=== PATIENT | male | born 1945 | race Caucasian/White ===

== ENCOUNTER → 2016-05-11 09:12 | Outpatient (CLI) | payer MEDICARE, OTHER ==
[2014-11-24 13:15] VITALS: BMI 31.9
[~2016-05-11 09:12] MED LIST: BRILINTA90 MG PO; BYSTOLIC10 MG PO; FLAGYL500 MG PO; FORTAMET500 MG/BOT PO; GEMFIBROZIL600 MG PO; GLIPIZIDE10 MG PO; GLUCOPHAGE500 MG PO; LACTINEX C1 TAB.CHEW PO; LEVAQUIN750 MG PO; LISINOPRIL-HCTZ1 T11 PO; MOBIC7.5 MG PO; MUCINEX600 MG PO; NORVASC10 MG PO; NORVASC2.5 MG PO; PRAVACHOL40 MG PO; PRINIVIL20 MG PO; PROVENTIL HFA6.7 GM INH; QUESTRAN LIGH4 G/PKT PO; SYNTHROID50 MCG PO; ULTRAM50 MG PO; VITAMIN D2000 UNIT PO
== END | disposition home or self-care (01) ==
LOC: D.US 09:12
DX: N08 Glomerular disorders in diseases classified elsewhere (principal)

== ENCOUNTER → 2016-09-17 10:14 | Outpatient (CLI) | payer MEDICARE, OTHER ==
[2014-11-24 13:15] VITALS: BMI 31.9
[2016-09-17 10:59] LABS: CREATININE - SERUM 2.9 mg/dL (0.6-1.3)
== END | disposition home or self-care (01) ==
LOC: D.LAB 10:14 → D.MRI 11:30
PROVIDERS: Family Medicine
DX: R51 Headache (principal)

== ENCOUNTER → 2016-11-13 10:10 | Outpatient (CLI) | payer MEDICARE, OTHER ==
[2014-11-24 13:15] VITALS: BMI 31.9
== END | disposition home or self-care (01) ==
LOC: D.US 11-12 14:30
DX: I65.23 Occlusion and stenosis of bilateral carotid arteries (principal)

== ENCOUNTER 2016-12-12 17:51 | Inpatient (IN) | payer MEDICARE, OTHER ==
[2016-12-12 19:06] LABS: BASOPHILS 0.2 % (0-2); EOSINOPHILS 0.5 % (0-7); HEMATOCRIT 30.5 % (42.0-54.0); HEMOGLOBIN 10.2 g/dL (13.5-17.5); IMMATURE GRANULOCYTES 0.9 % (0-5); LYMPHOCYTES 7.6 % (15-50); MCH 28.8 pg (26.0-34.0); MCHC 33.4 g/dL (31.0-37.0); MCV 86.2 fL (80.0-100.0); MEAN PLATELET VOLUME 10.7 fL (7.4-10.4); MONOCYTES 6.3 % (2-11); NEUTROPHILS 84.5 % (40-80); RBC 3.54 10x6/uL (4.20-6.10); RDW 13.3 % (11.5-14.5); WBC 6.3 10x3/uL (4.8-10.8)
[2016-12-12 19:07] LABS: PLATELET COUNT 266 10x3/uL (130-400)
[2016-12-12 19:18] LABS: APTT 28.7 SECONDS (22.8-39.4); INR 1.05 (0.85-1.17); PROTIME 13.6 SECONDS (11.6-15.0)
[2016-12-12 19:28] LABS: ALBUMIN 3.2 g/dL (3.4-5.0); ANION GAP 20.8 mmol/L (8-16); BILIRUBIN - TOTAL 0.23 mg/dL (0.2-1.3); CALCIUM 8.6 mg/dL (8.5-10.1); CREATININE - SERUM 3.2 mg/dL (0.6-1.3); POTASSIUM - SERUM 4.8 mmol/L (3.5-5.1); PROTEIN - SERUM 6.8 g/dL (6.4-8.2)
[2016-12-12 19:37] LABS: TROPONIN-I 0.03 ng/mL (0.000-0.060)
[2016-12-13] MEDS ORDERED: COREG12.5 MG PO (00:05)
[2016-12-13] MEDS ORDERED: FUROSEMIDE20 MG PO (00:05)
[2016-12-13] MEDS ORDERED: NEURONTIN 300300 MG PO (00:06)
[2016-12-13] MEDS ORDERED: SYNTHROID50 MCG PO (00:09)
[2016-12-13] MEDS ORDERED: LANTUS INSULIN10 ML SQ (00:10)
[2016-12-13 00:27] VITALS: BP 184/86; BMI 31.3
--- NOTE | 2016-12-13 01:00 | NUR ---
RECEIVED PATIENT ADMITTED FROM THE ER AT 0015 W/ DX OF NEW ONSET RENAL FAILURE & HYPERTENSION. PT IS ALERT, AWAKE, AND ORIENTED X3. HE HAS 20G IV LEFT FOREARM SALINE LOC. PER ER NURSE, BP HAS BEEN LABILE. HERE PT'S BP IS 184/86, WILL MEDICATE W/ PRN CLONIDINE PER ADMISSION ORDERS. ADMISSION HISTORY, ASSESSMENT, AND MEDICATION RECONCILIATION COMPLETED. PT'S IS AT THE BEDSIDE. WILL START IVF PER ADMIT ORDERS. PT DENIES ANY OTHER NEEDS AT THIS TIME. WILL CONT TO MONITOR.
[2016-12-13 04:27] LABS: BASOPHILS 0.2 % (0-2); EOSINOPHILS 1.4 % (0-7); HEMATOCRIT 27.9 % (42.0-54.0); HEMOGLOBIN 9.5 g/dL (13.5-17.5); IMMATURE GRANULOCYTES 0.5 % (0-5); LYMPHOCYTES 19.3 % (15-50); MCH 29.4 pg (26.0-34.0); MCHC 34.1 g/dL (31.0-37.0); MCV 86.4 fL (80.0-100.0); MEAN PLATELET VOLUME 10.3 fL (7.4-10.4); MONOCYTES 10.8 % (2-11); NEUTROPHILS 67.8 % (40-80); PLATELET COUNT 214 10x3/uL (130-400); RBC 3.23 10x6/uL (4.20-6.10); RDW 13.6 % (11.5-14.5); WBC 5.5 10x3/uL (4.8-10.8)
[2016-12-13 04:38] LABS: ANION GAP 15.8 mmol/L (8-16); CALCIUM 8.3 mg/dL (8.5-10.1); CARBON DIOXIDE 21.4 mmol/L (21.0-32.0); CREATININE - SERUM 3.2 mg/dL (0.6-1.3); POTASSIUM - SERUM 4.2 mmol/L (3.5-5.1)
[2016-12-13 05:33] VITALS: BP 114/69
[2016-12-13 07:37] LABS: T4 THYROXINE 1.9 ug/dL (4.7-13.3); THYROID STIMULATING HORMONE 2.59 uIU/mL (0.36-3.74)
[2016-12-13 08:00] VITALS: BP 155/69
--- NOTE | 2016-12-13 09:47 | NUR ---
TELEMETRY SR. IV PATENT. AT BS. CALL LIGHT IN REACH. WILL MONITO NEEDS.
--- NOTE | 2016-12-13 09:49 | NUR ---
RESTS IN BED WITH EYES CLOSED. IV PATENT. AT BS. CALL LIGHT IN REACH. WILL MONITOR NEEDS.
[2016-12-13 12:00] VITALS: BP 124/47
[2016-12-13 16:00] VITALS: BP 140/55
[2016-12-13 21:38] VITALS: BP 180/86
[2016-12-14 01:53] VITALS: BP 157/73
--- NOTE | 2016-12-14 02:26 | NUR ---
LYING IN BED, CALL LIGHT IN REACH. WILL CONTINUE WITH PLAN OF CARE.
[2016-12-14 04:16] VITALS: BP 159/78
[2016-12-14 05:36] LABS: BASOPHILS 0.4 % (0-2); EOSINOPHILS 3.2 % (0-7); HEMATOCRIT 28.4 % (42.0-54.0); HEMOGLOBIN 9.5 g/dL (13.5-17.5); IMMATURE GRANULOCYTES 0.6 % (0-5); LYMPHOCYTES 23.2 % (15-50); MCHC 33.5 g/dL (31.0-37.0); MCV 86.6 fL (80.0-100.0); MEAN PLATELET VOLUME 10.4 fL (7.4-10.4); MONOCYTES 10.3 % (2-11); NEUTROPHILS 62.3 % (40-80); PLATELET COUNT 209 10x3/uL (130-400); RBC 3.28 10x6/uL (4.20-6.10); RDW 13.4 % (11.5-14.5); WBC 4.7 10x3/uL (4.8-10.8)
[2016-12-14 05:43] LABS: ANION GAP 13.6 mmol/L (8-16); CALCIUM 8.3 mg/dL (8.5-10.1); CARBON DIOXIDE 22.3 mmol/L (21.0-32.0); CREATININE - SERUM 3.2 mg/dL (0.6-1.3); POTASSIUM - SERUM 3.9 mmol/L (3.5-5.1)
[2016-12-14] MEDS ORDERED: CATAPRES0.2 MG PO (07:36)
[2016-12-14 08:03] VITALS: BP 162/65
--- NOTE | 2016-12-14 11:02 | NUR ---
IV AND TELEMETRY DCD. DC PLANS GIVEN. UNDERSTANDING VOICED. ESCORTED TO CAR BY W/C.
--- NOTE | 2016-12-14 14:57 | NUR ---
LATE ENTRY: 12/14/16 @ 1000 Patient Name: OSMAN RIBEIRO Admission Status: ER Accout number: [id number] Admission Date: 12-12-2016 : 1945 Admission Diagnosis: Attending: URIEL DE Current LOS: 2 Anticipated DC Date: 12-14-2016 Planned Disposition: Home Primary Insurance: MEDICARE A & B Discharge Planning Comments: CM MET WITH PATIENT TO DISCUSS DISCHARGE. PATIENT WAS WITH AT BEDSIDE. THEY INITIALLY ASKED IF WE COULD GET THE PAPERWORK STARTED FOR THE PATIENTS DISABILITY. EXPLAINED THAT WE WERE NOT ABLE TO DO THIS. ENCOURAGED THEM TO GO TO THE SOCIAL SECURITY OFFICE AND 3D MODELER THE PAPERWORK AND TAKE IT TO THEIR PCP'S OFFICE. THAT HE WOULD HAVE TO BE THE ONE TO FILL OUT THE PAPERWORK. THEY WERE THANKFUL FOR THIS INFORMATION. THE PATIENT LIVES AT HOME WITH HIS . HE HAS A CPAP, GLUCOMETER (SUPPLIES MAILED TO HIS HOME THROUGH [facility]) AND A B/P MONITOR. HE DENIES THE NEED FOR HOME HEALTH OR ANY OTHER COMMUNITY RESOURCES. I HAVE MADE MYSELF AVAILABLE IN CASE HE WERE TO THINK OF ANY NEEDS PRIOR TO LEAVING TODAY. Sash Maker: Samina Comer Is the patient Alert and Oriented? Yes * How many steps to enter\exit or inside your home? 3, RAIL * PCP DR JENNY MANDEL * Pharmacy [address] ON [place] * Preadmission Environment Home with Family * ADLs Independent * Equipment CPAP Glucometer * Other Equipment B/P MONITOR * List name and contact numbers for known caregivers / representatives who currently or will assist patient after discharge: INDER RIBEIRO, , * Community resources currently utilized None * Please name any agencies selected above. [facility] SUPPLIES ALL DIABETIC SUPPLIES THROUGHT THE MAIL. * Additional services required to return to the preadmission environment? No * Can the patient safely return to the preadmission environment? Yes * Has this patient been hospitalized within the prior 30 days at any hospital? No
--- NOTE | 2016-12-17 07:30 | HP ---
PATIENT: OSMAN RIBEIRO MEDICAL RECORD: [id number] ACCOUNT: [id number] LOCATION:[address] : [birth year] ADMISSION DATE: 12/12/16 HISTORY AND PHYSICAL EXAMINATION DATE OF ADMISSION: 12/12/2016 CHIEF COMPLAINT: Elevated blood pressure. HISTORY OF PRESENT ILLNESS: The patient is a 71-year-old gentleman with longstanding history of having hypertension and diabetes. He has also had arteriosclerotic heart disease. The patient states over the past couple of weeks, he has had elevated blood pressures. He has also had a history of kidney disease with recent worsening. He is followed by Dr. Dickerson. Patient presented to the Emergency Room where he was found to have malignant hypertension as well as worsening of the BUN and creatinine. It was felt the patient warranted admission. PAST MEDICAL HISTORY: Significant that he has had diabetes mellitus. He has had idiopathic peripheral autonomic neuropathy, hypertension, appendectomy, left carotid endarterectomy, and cardiac stents placed. He has had cardiac catheterization in 2009, 2013, and 2014. FAMILY HISTORY: Mother had cerebrovascular accident. Father had neoplasm, at age 63. ALLERGIES: None. MEDICATIONS: Include amlodipine 10 mg 1 p.o. every day, aspirin 81 mg once a day, Carvedilol 12.5 once a day, furosemide 20 mg once a day, gabapentin 300 mg p.o. at bedtime, gemfibrozil 600 mg b.i.d., Lantus 80 units once daily, lisinopril 20 b.i.d., tramadol on a p.r.n. basis, and vitamin D3 2000 international units once a day. SOCIAL HISTORY: The patient has 2 years college education. He is . He denies any ethanol, tobacco use, or abuse. He stopped chewing tobacco in December 2015. REVIEW OF SYSTEMS: CONSTITUTIONAL: He denies any headaches, seizure, or syncope. He denies any visual or auditory acuity. PULMONARY: He denies any shortness of breath, cough, congestion. CARDIOVASCULAR: He did report having some pressure in the chest. GASTROINTESTINAL: No chronic nausea, vomiting, melena, or hematochezia. GENITOURINARY: No urgency, frequency, or dysuria. PHYSICAL EXAMINATION: VITAL SIGNS: The patient's blood pressure was elevated with a blood pressure of 220/110, his pulse was 90. He was afebrile. GENERAL: He is alert. He is oriented times 3. HEENT: Unremarkable. NECK: Supple. There is no adenopathy. HEART: Has regular rate and rhythm. No murmurs, gallops, or rubs. LUNGS: Clear. ABDOMEN: Soft, bowel sounds positive. No organomegaly. HISTORY AND PHYSICAL [id number] OSMAN RIBEIRO GENITAL AND RECTAL: Deferred. LABORATORY DATA: The patient had a BUN of 75, creatinine elevated at 3.5. Chest x-ray showed borderline cardiomegaly. It is of note that the patient's last BUN in the office was 61, but his creatinine was 3.41. This was back in October of this year. The patient also as stated above has been followed by Dr. Dickerson. ASSESSMENT: 1. Accelerated hypertension. 2. Chronic kidney disease. 3. Diabetes mellitus. PLAN: The patient is admitted for further evaluation and blood pressure will be treated with Clonidine 0.2 mg p.o. q.8 hours p.r.n. systolic greater than 160. Continue to evaluate. TRANSINT:[id number] Voice Confirmation ID: [id number] DOCUMENT ID: [id number] JENNY MANDEL MD at 0730 CC: [id number] DICTATION DATE: 12/13/16808 SENIOR SUSTAINABILITY CONSULTANT: 12/13/16923 DIS IN 12/14/16 [facility] [address] [place] [address]
== END 2016-12-14 11:03 | disposition home or self-care (01) | DRG 304 ==
LOC: D.ER 17:51 → D.M2 22:35
PROVIDERS: Emergency Medicine Emergency Medical Services; Family Medicine; ADMIT Family Medicine
DX: I16.0 Hypertensive urgency (principal); I50.21 Acute systolic (congestive) heart failure; N17.9 Acute kidney failure, unspecified; E11.22 Type 2 diabetes mellitus with diabetic chronic kidney disease; I13.0 Hypertensive heart and chronic kidney disease with heart failure and stage 1 through stage 4 chronic kidney disease, or unspecified chronic kidney disease; N18.9 Chronic kidney disease, unspecified; E11.40 Type 2 diabetes mellitus with diabetic neuropathy, unspecified; I25.10 Atherosclerotic heart disease of native coronary artery without angina pectoris

== ENCOUNTER 2017-04-25 12:49 | Inpatient (IN) | payer MEDICARE, OTHER ==
[2017-04-25] VITALS (12 sets, daily range): BP systolic 127–169; BP diastolic 52–80; Ht 180.3 cm; Wt 107.2 kg
[~2017-04-25] VITALS: Ht 180.3 cm; Wt 107.2 kg
--- NOTE | ~2017-04-25 | OP ---
PATIENT NAME: OSMAN RIBEIRO MEDICAL RECORD: [id number] :43 LOCATION:D.M2 D.2121 ADMISSION DATE:04/25/17 SURGEON: HAL CARBALLO MD DATE OF OPERATION: 04/30/2017 PROCEDURE: Lead portion of permanent pacemaker placement. INDICATION: Atrial fibrillation with pauses and bradyarrhythmias. DESCRIPTION OF PROCEDURE: After left subclavian was cannulated via modified Seldinger technique via Dr. Carmichael, first the RV lead was placed in RV apex without difficulty. After adequate thresholds and R waves were obtained, the lead was attached to appropriate poles of the generator and the pocket was closed via Dr. Carmichael. IMPRESSION: Successful lead portion of permanent pacemaker placement on Osman Ribeiro. ESTIMATED BLOOD LOSS: Minimal. COMPLICATIONS: None. DISPOSITION: To the floor, stable. TRANSINT:[id number] Voice Confirmation ID: [id number] DOCUMENT ID: [id number] HAL CARBALLO MD at 0920 CC: [id number] DICTATION DATE: 04/30/17 1538 TATTOOER: 04/30/17 1604 DIS IN 05/01/17 [address] [place] [address]
--- NOTE | ~2017-04-25 | EC ---
PATIENT:OSMAN RIBEIRO DATE OF SERVICE: 04/25/17 SEX: M MEDICAL RECORD: [id number] DATE OF : [birth year] LOCATION:D. D.212 AGE OF PATIENT: 71 ADMISSION DATE: 04/25/17 REFERRING PHYSICIAN: INTERPRETING PHYSICIAN: HAL CARBALLO MD ECHOCARDIOGRAM REPORT ECHO CHARGES 4 ECHO COMPLETE CLINICAL DIAGNOSIS: ARRHYTHMIA ECHOCARDIOGRAPHIC MEASUREMENTS (adult normal given) AC root (d.<3.7cm) 4.5 cm LV Septum d (<1.2 cm> 1.7 cm Valve Excursion 1.9 cm LV Septum (systole) 2.5 cm Left Atria (s.<4.0cm> 5.0 cm LVPW d(<1.2cm) 1.8 cm RV (d.<2.3cm) 5.4 cm LVPW (sytole) 2.2 cm LV diastole(<5.6CM) 5.6 cm MV E-F(>70mm/sec) cm LV systole 3.4 cm LVOT Diameter 1.9 cm MV exc.(>10mm) 1.4 cm Est.ejection fraction (50-75%) % Pericardial Effusion N DOPPLER: LVIT cm/sec A 48.0 cm/sec E 119 cm/sec LA cm/sec RVSP 39 mmHg LVOT 82 cm/sec AOP1/2T m/s Asc. Ao 137 cm/sec RVOT 83 cm/sec RA cm/sec PA 112 cm/sec AV Gradient Peak 7.51 mmHg AV Mean 3.41 mmHg AV Area 1.8 cm MV Gradient Peak 5.69 mmHg MV Mean 1.60 mmHg MV Area cm COMMENTS: Doctor Of Veterinary Medicine: 2 GENOVEVA HOWARD Bar Porter: 3 Dr. Matias TAPE# PACS DATE OF SERVICE: 04/26/2017 Adequate 2D echo, color flow and spectral Doppler, and M-mode. LVH is present. LV internal dimensions are normal. LV function is probably lower limits of normal, estimated EF 50%. Aortic valve sclerosis without stenosis by Doppler interrogation. Left atrium is dilated at 5.0 cm. Mitral valve shows no prolapse. Mild MR. Right-sided chamber is grossly normal. Mild TR. ECHOCARDIOGRAM REPORT [id number] OSMAN RIBEIRO TRANSINT:[id number] Voice Confirmation ID: [id number] DOCUMENT ID: [id number] HAL CARBALLO MD at 0919 CC: [id number] DICTATION DATE: 04/26/17 172 BRIDGE ENGINEER: 04/27/17 0122 DIS IN 05/01/17 [place] [id number] [place] [id number]
--- NOTE | ~2017-04-25 | OP ---
PATIENT NAME: OSMAN RIBEIRO MEDICAL RECORD: [id number] :43 LOCATION:D.M2 D.2121 ADMISSION DATE:04/25/17 SURGEON: LUCINDA PATEL MD DATE OF OPERATION: 04/30/2017 This is a cosurgeon case. PREOPERATIVE DIAGNOSIS: Chronic AFib with pauses. POSTOPERATIVE DIAGNOSIS: Chronic AFib with pauses. PROCEDURE: Creation of pacemaker pocket. Vascular access into the central venous system with a lead. Closure of the pacemaker pocket. BOTTLE CASER: Raji Matias MD CO-SURGEON: Lucinda Patel MD, this was a cosurgeon case. ANESTHESIA: Local with IV sedation. COMPLICATIONS: None. BLOOD LOSS: Minimal. This procedure was performed in the cardiac catheterization laboratory. OPERATIVE COURSE: The patient was conveyed to the cardiac catheterization laboratory on 04/30/2017. IV sedation was induced by the nursing staff under my direction. The left chest was sterilely prepped and draped. A local anesthetic was used to infiltrate the skin and subcutaneous tissues inferior to the left clavicle. A transverse incision was accomplished inferior to the left clavicle. Dissection was carried down to the level of the pectoralis fascia. A subcutaneous pocket was created bluntly in a caudad direction. Under fluoroscopy, I accessed the left subclavian vein in an antegrade fashion. A guidewire passed easily. A 7-Sinhala dilator sheath was advanced over the wire. The dilator and wire were removed. Through the sheath, a pacemaker lead was inserted into the central venous system. The sheath was then removed. Dr. Raji Matias positioned the pacemaker lead to the ventricles. Appropriate thresholds were obtained. I then sutured the lead to the underlying pectoralis fascia with 2-0 TiCron times 2. another TiCron was placed medially around the lead to prevent backbleeding. I confirmed the lead number with the pacemaker disability representative. The pacemaker lead was placed in the pacemaker generator and tightened down with the wrench. I tried to dislodge the pacemaker lead and was unable to do so. I then placed a pacemaker in the pacemaker pocket with the leads posterior to the pacemaker. I irrigated with normal saline. I sutured the pacemaker to the underlying pectoralis fascia with a 2-0 TiCron. The deep adipose tissue was closed with interrupted 3-0 Vicryls. The subcutaneous adipose tissue was closed with interrupted 3-0 Vicryls. The skin was approximated with a running intracuticular 3-0 Vicryl. A sterile dressing was applied. The patient was then conveyed to the post-procedure area. TRANSINT:[id number] Voice Confirmation ID: [id number] DOCUMENT ID: [id number] OPERATIVE REPORT [id number] OSMAN RIBEIRO, LUCINDA RIOS at 1607 CC: JENNY MANDEL and RAJI CARBALLO MD [id number] DICTATION DATE: 04/30/17 1608 INSURANCE EXAMINER: 04/30/17 1635 DIS IN 05/01/17 [facility] [address] [place] [id number]
--- NOTE | ~2017-04-25 | CN ---
PATIENT NAME:OSMAN RIBEIRO MEDICAL RECORD: [id number] : 43 LOCATION:. D.2121 ADMIT DATE: 04/25/17 ACCOUNT: [id number] CONSULTING PHYSICIAN: HAL CARBALLO MD REFERRING PHYSICIAN: JENNY MANDEL MD DATE OF CONSULTATION: 04/26/2017 HISTORY OF PRESENT ILLNESS: A 71-year-old gentleman with a history of coronary artery disease, status post intervention has a history of hypertension, chronic renal insufficiency, a 2-3 week history of generalized malaise, fatigue, lightheadedness. No mónica syncope, little bit bradycardic when checking his blood pressure. Recently had his Coreg and clonidine both increased. PAST MEDICAL HISTORY: 1. Includes a history of coronary artery disease. 2. Dyslipidemia. 3. Diabetes mellitus. 4. Cerebrovascular disease. ALLERGIES: ASPIRIN, SHELLFISH. SOCIAL HISTORY: , nonsmoker. Does try to exercise. [place] at the mall. REVIEW OF SYSTEMS: The patient reports easy bruising but reports no swollen glands. The patient reports no fever, no night sweats, no significant weight gain, no significant weight loss. No significant exercise tolerance. The patient reports no dry eyes, no irritation, no vision change. Patient reports no difficulty hearing and no ear pain. Patient reports no frequent nose bleeds or nose and sinus problems. Patient reports on arm pain on exertion. No shortness of breath while lying down. No history of heart murmur. Patient reports no cough, no wheezing or coughing up blood. Patient reports no abdominal pain, no vomiting. Normal appetite. No diarrhea and not vomiting blood. No nausea and no constipation. Patient reports no incontinence. No difficulty urinating. No hematuria. No increased frequency. Patient reports no muscle aches. No weakness, no arthralgias, no back pain. No swelling of the extremities. Patient reports no abnormal mole, no jaundice, no rashes. Reports no loss of consciousness. No weakness and no numbness. No seizures, dizziness, or headaches. The patient reports no depression, no sleep disturbance, feeling safe in a relationship and no alcohol abuse. Patient reports on fatigue. Reports no runny nose or sinus pressure. No itching, no hives, and no frequent sneezing. MEDICATIONS: Include: 1. Gemfibrozil 600 b.i.d. 2. Lisinopril 40 every day. 3. Clonidine 0.2 t.i.d. 4. Tramadol 50 q.4 p.r.n. 5. Neurontin 300 q.h.s. 6. Aspirin 81 every day. 7. Lasix 20 every day. 8. Insulin per scale. PHYSICAL EXAMINATION: GENERAL: Pleasant gentleman in no acute distress, appears well compensated. CONSULT REPORT [id number] QUINTINOSMAN KAILYN VITAL SIGNS: Pulse rate 39, blood pressure 146/72. HEENT: Normocephalic, atraumatic. NECK: No JVD or bruit. HEART: Regular, bradycardic. II/ systolic ejection murmur. LUNGS: Good air excursion. ABDOMEN: Soft, nontender. EXTREMITIES: Pulses 2+. There is 1+ edema. NEUROLOGIC: Grossly intact. IMPRESSION: Bradycardia, suspect this is medicine related, normal QRS duration. Would hold beta blockade and clonidine. Check echocardiographic study. Further recommendations based on the above. TRANSINT:[id number] Voice Confirmation ID: [id number] DOCUMENT ID: [id number] HAL CARBALLO MD at 0919 CC: [id number] DICTATION DATE: 04/26/17 0834 SUPERVISOR MAIL CARRIERS: 04/26/17 1201 DIS IN 05/01/17 [facility] [address] [facility] [place] [address]
--- NOTE | ~2017-04-25 | HP ---
PATIENT: OSMAN RIBEIRO MEDICAL RECORD: [id number] ACCOUNT: [id number] LOCATION:[address] : 43 ADMISSION DATE: 04/25/17 HISTORY AND PHYSICAL EXAMINATION DATE OF ADMISSION: 04/25/2017 CHIEF COMPLAINT: Shortness of breath. HISTORY OF PRESENT ILLNESS: The patient is a 71-year-old gentleman with longstanding history of having chronic renal disease. He is followed by Dr. Dickerson, he also has a history of having congestive heart failure. He is followed by Dr. Suarez. The patient presents complaining of having increasing shortness of breath over the past month, he has had no energy. In the Emergency Room, the patient was found to be symptomatic from bradycardia. It was felt the patient should be admitted. PAST MEDICAL HISTORY: Significant that he has had diabetes mellitus. He has had cardiac stenting in the past. He has had hyperlipidemia, hypertension, chronic renal disease. PAST SURGICAL HISTORY: He has had cholecystectomy, left carotid endarterectomy, appendectomy. FAMILY HISTORY: Significant for heart disease in the mother as well as cerebrovascular accident. SOCIAL HISTORY: The patient is 2 years college educated. He is . Former smoker, stopped in 1972. ALLERGIES: He has known drug allergies. MEDICATIONS: Include amlodipine 2.5 mg 1 p.o. every day, carvedilol 25 mg p.o. b.i.d., clonidine 0.2 mg p.o. t.i.d., Lasix 20 mg 1 p.o. every day, Lopid 600 mg p.o. b.i.d., hydralazine was 25 mg 1 p.o. q.i.d., Lantus SoloSTAR 50 units every day, lisinopril 20 mg b.i.d., tramadol 50 mg 1 every 6 hours p.r.n. severe pain, vitamin D3 2000 international units once a day. REVIEW OF SYSTEMS: CONSTITUTIONAL: He denies any headaches, seizure, or syncope. Denies change in visual or auditory acuity. PULMONARY: He denies any sputum production, but has had a cough. He has had some shortness of breath with exertion. CARDIOVASCULAR: He has had pressure in the chest. GASTROINTESTINAL: He has had no chronic nausea, vomiting, diarrhea, melena, or hematochezia. GENITOURINARY: No urgency, frequency, or dysuria. PHYSICAL EXAMINATION: VITAL SIGNS: In the Emergency Room, his respirations 16, blood pressure is 157/64, pulse was 32. HEENT: Head is normocephalic. No lesions. Ears: TMs clear. Eyes: Pupils equal, round and reactive to light. Extraocular movements are intact. Nasal cavity, oral cavity, oropharynx clear. NECK: Supple. There is no adenopathy. HISTORY AND PHYSICAL [id number] OSMAN RIBEIRO HEART: He is bradycardic. LUNGS: Clear. ABDOMEN: Soft, bowel sounds are positive. No organomegaly. LABORATORY DATA: The patient had an EKG showing sinus bradycardia. Chest x-ray showed evidence of previous granulomatous disease, also cardiomegaly was present. He had a white count of 4.1, hemoglobin 9.6, hematocrit 30.5, platelets were 181. Sodium 138, potassium is 5, CO2 is 19.8, BUN is 55, creatinine is 3.5. Cardiac enzymes unremarkable. He had a proBNP of 12,335. ASSESSMENT: 1. Symptomatic bradycardia. 2. History of arteriosclerotic heart disease. 3. History of congestive heart failure. 4. Diabetes mellitus. 5. Chronic kidney disease. PLAN: The patient is admitted to ICU. We will hold his carvedilol. Cardiology consultation well as nephrology consultation will be obtained. The patient will be placed on Humalog sliding scale, continue to evaluate. Also an echocardiogram will be ordered. TRANSINT:[id number] Voice Confirmation ID: [id number] DOCUMENT ID: [id number] JENNY MANDEL MD at 0645 CC: [id number] DICTATION DATE: 04/25/171832 TAPING SUPERVISOR: 04/25/17 190 ADM IN [facility] [address] [place] [address]
--- NOTE | ~2017-04-25 | HEMODYNAMI ---
PATIENT:OSMAN RIBEIRO MEDICAL RECORD: [id number] : 43 LOCATION:[address] ADMISSION DATE: 04/25/17 Generatedon:04/30/201715:35 Patient name: OSMAN RIBEIRO Patient #: [id number] SSN: DO B: 1945 Date of study: 04/30/2017 Page: Of Hemodynamic Procedure Report Patient Data Patient Demographics Procedure consent was obtained First Name: OSMAN Gender: Male Last Name: QUINTIN : 1945 [facility] Initial: KAILYN Age: 71 year(s) Patient #: [id number] Race: Additional ID: [id number] Contact details Address: [address] [place] [address] STREET State: [place] City: [place] Zip code: [address] Past Medical History Allergies Allergen Reaction Date Comments Reported Other allergy 11/24/2014 aspirin Admission Admission Data Admission Date: 04/25/2017 Admission Time: 14:03 Room #: 2121 Procedure Procedure Types Cath Procedure Diagnostic Procedure PPM/ICD PPM Ventricular Implant Procedure Description Procedure Date Procedure Date: 04/30/2017 Procedure Start Time: 15:01 Procedure Staff Name Function Raji Bowman MD Performing Physician Vikash Carmichael MD Assisting physician Oneil Khan RT Monitor Valerie Dobson RN Nurse Katherine Murray RT Scrub Procedure Data Cath Procedure Fluoroscopy Diagnostic fluoroscopy Total fluoroscopy Time: 1.4 time: 1.4 min min Diagnostic fluoroscopy Total fluoroscopy dose: dose: 50.63 mGy 50.63 mGy Contrast Material Contrast Material Type Amount (ml) Isovue 300 0 Estimated blood loss: 10 ml Procedure Complications No complications Procedure Medications Medication Administration Route Dosage Oxygen NC 2 l/min Lidocaine 1% with added to field 20 ml Epi Bupivacaine 0.5% S.Q. 10 ml Ancef (1Gm/50ml NS) I.V.P.B 1 g Ancef Irrigation Topical 1 g (1gm/500ml NS) 0.9% NaCl I.V. 25 ml/hr Versed I.V. 1 mg Fentanyl I.V. 50 mcg Versed I.V. 1 mg Fentanyl I.V. 50 mcg Fentanyl I.V. 50 mcg Hemodynamics Rest Heart Rate: 64 (bpm) Snapshots Pre Cath Intra NCS Post Cath Vital Signs Time Heart Resp SPO2 etCO2 NIBP (mmHg) Rhythm Pain Sedation Rate (ipm) (%) (mmHg) Status Level (bpm) 14:45:00 58 16 94 0 134/74(121) A-Fib 0 (11) 10(A) , No pain 14:49:27 62 19 94 26.8 153/76(121) A-Fib 0 (11) 10(A) , No pain 14:54:01 71 20 94 26.1 147/77(116) A-Fib 0 (11) 10(A) , No pain 14:58:32 56 17 93 29.8 148/76(110) A-Fib 0 (11) 10(A) , No pain 15:03:04 58 17 95 30.5 147/69(104) A-Fib 0 (11) 10(A) , No pain 15:07:34 59 17 93 29.1 163/83(113) A-Fib 0 (11) 10(A) , No pain 15:11:51 99 16 94 28.3 134/87(122) A-Fib 0 (11) 10(A) , No pain 15:16:13 61 17 94 28.3 144/79(120) Paced 0 (11) 10(A) , No pain 15:20:41 64 17 93 30.5 163/77(114) Paced 0 (11) 10(A) , No pain 15:25:09 64 17 93 29.8 152/82(105) Paced 0 (11) 10(A) , No pain 15:29:33 63 17 94 28.3 150/80(117) Paced 0 (11) 10(A) , No pain 15:33:53 61 21 92 27.6 147/79(103) Paced 0 (11) 10(A) , No pain Medications Time Medication Route Dose Verified Delivered Reason Notes Effectiv eness by by 14:45:33 Ancef I.V.P.B 1 g Raji Luceroie used for (1Gm/50ml St Balaji Dobson RN procedure NS) 14:54:05 Oxygen NC 2 Raji Buffie used for l/min St Balaji Dobson hotel clerk 14:54:12 Lidocaine added 20 ml Raji Suh for local 1% with Epi to Patton Breving anesthetic field MD RIOS 14:54:23 Bupivacaine S.Q. 10 ml Raji Suh for local 0.5% ColbyBalaji Carmichael anesthetic MD RIOS 14:54:56 Ancef Topical 1 g Raji Suh used for Irrigation Colby Ellaving procedure (1gm/500ml MD RIOS NS) 14:55:03 0.9% NaCl I.V. 25 Raji Suh Per ml/hr St Balaji Jaramilloving physician MD RIOS 15:00:15 Versed I.V. 1 mg Raji Padilla for Colby Dobson RN sedation 15:00:21 Fentanyl I.V. 50 Raji Luceroie for mcg Colby Dobson RN sedation 15:05:04 Versed I.V. 1 [facility] 15:05:08 Fentanyl I.V. 50 Raji Luceroie for m[facility] 15:12:39 Fentanyl I.V. 50 Raji Luceroie for mcg [facility] RN sedation Procedure Log Time Note 14:23:03 Oneil Khan RT(R) sent for patient. Start room use. 14:23:04 Time tracking: Regular hours 14:23:08 Plan of Care:Hemodynamics will remain stable., Cardiac rhythm will remain stable., Comfort level will be maintained., Respiratory function will remain adequate., Patient/ family verbilizes understanding of procedure., Procedure tolerated without complication., Recovers from procedure without complications.. 14:36:31 Patient received from PCU to CCL 3 Alert and oriented. Tansferred to table in Supine position. 14:36:32 Warm blankets applied, and gabriella hugger turned on for patient comfort. 14:36:32 Correct patient and procedure confirmed by team. 14:36:33 Signed procedure consent form obtained from patient. 14:36:34 ECG and BP/O2 sat monitors applied to patient. 14:36:35 Full Disclosure recording started 14:43:40 Vital chart was started 14:43:41 Baseline sample Acquired. 14:43:47 Rhythm: atrial fibrillation 14:44:08 H&P Date Dictated: 04/26/2017 Within 30 days and on chart.. 14:44:08 Pre-procedure instructions explained to patient. 14:44:09 Pre-op teaching completed and patient verbalized understanding. 14:44:11 Family in patients room. 14:44:12 Patient NPO since Midnight. 14:44:14 Is the patient allergic to Iodine/contrast media? No. 14:44:15 Is patient on blood thinner?No 14:44:17 Patient diabetic? Yes. 14:44:18 If diabetic: On Metformin? No 14:44:20 Previous problem with sedation/anesthesia? No ? 14:44:21 Snore? Yes 14:44:22 Sleep apnea? Yes 14:44:23 Deviated septum? No 14:44:23 Opens mouth fully? Yes 14:44:24 Sticks out tongue? Yes 14:44:26 Airway obstruction? No ? 14:44:27 Dentures? No ? 14:44:33 Patient pain scale 0/10 ?. 14:44:39 IV patent on arrival in right forearm with 0.9% NaCl at KVO. 14:44:41 Lab results completed and on chart. 14:44:47 Left chest area was prepped with dura-prep and draped in sterile fashion 14:44:48 Alarms reviewed by R. N. 14:44:48 Sharps counted by scrub and verified by R.N. 14:45:04 Medtronic retail service representative Aleksey Terry present for procedure. 14:45:33 Ancef (1Gm/50ml NS) 1 g I.V.P.B was administered by Valerie Dobson RN; used for procedure; 14:46:11 Pre sharps counted by scrub and verified by RN: Sutures: 14; Sponges: 5; Stick needles: 1; Skin needles: 2; Blade: 1; Cautery: 1 14:46:22 Grounding pad site Left thigh. 14:46:23 Grounding pad site free from injury. 14:54:05 Oxygen 2 l/min NC was administered by Valerie Dobson RN; used for procedure; 14:54:12 Lidocaine 1% with Epi 20 ml added to field was administered by Vikash Carmichael MD; for local anesthetic; 14:54:23 Bupivacaine 0.5% 10 ml S.Q. was administered by Vikash Carmichael MD; for local anesthetic; 14:54:34 Physician paged 14:54:56 Ancef Irrigation (1gm/500ml NS) 1 g Topical was administered by Vikash Carmichael MD; used for procedure; 14:55:03 0.9% NaCl 25 ml/hr I.V. was administered by Vikash Carmichael MD; Per physician; 14:57:27 Medtronic Adapta PPM Single Generator [id number] opened to sterile field. 14:57:31 Medtronic 4074-58 PPM Lead opened to sterile field. 14:57:32 3-0 Vicryl Multipack [id number] opened to sterile field. 14:57:32 3-0 Vicryl Single Pack [id number] opened to sterile field. 14:57:32 2-0 Ticron Multipack ([id number]) opened to sterile field. 14:57:33 Mepilex Dressing ([id number]) opened to sterile field. 14:58:38 --------ALL STOP TIME OUT------ 14:58:39 Final Timeout: patient, procedure, and site verified with staff and physician. All members of the team are in agreement. 14:58:42 Left chest site verified by team. 14:58:46 Physical assessment completed. ASA score P 2 - A patient with mild systemic disease as per Raji Bowman MD. 14:58:49 Sedation plan: IV Moderate Sedation Medication:Versed, Fentanyl 15:00:15 Versed 1 mg I.V. was administered by Valerie Dobson RN; for sedation; 15:00:21 Fentanyl 50 mcg I.V. was administered by Valerie Dobson RN; for sedation; 15:01:32 Lidocaine 1% w/epi and Bupivacaine 0.5% was administered to left subclavicular area by Vikash Carmichael MD . 15:02:24 Incision made to left subclavicular area. 15:03:30 Generator pocket made/opened. 15:05:04 Versed 1 mg I.V. was administered by Valerie Dobson RN; for sedation; 15:05:08 Fentanyl 50 mcg I.V. was administered by Valerie Dobson RN; for sedation; 15:07:37 Left subclavian vein accessed with 7Fr Peel Away Sheath. 15:08:51 Ventricular lead inserted and advanced. 15:10:03 Peel-a-way sheath was split and removed. 15:11:40 Ventricular lead positioned. 15:12:22 Ventricular lead tested. 15:12:38 Ventricular lead attachment was completed with 2-0 ticron. 15:12:39 Fentanyl 50 mcg I.V. was administered by Valerie Dobson RN; for sedation; 15:13:44 PPM Single was attached to lead(s) and inserted into pocket. 15:14:50 Generator was sutured in place with 2-0 ticron. 15:14:52 Device pocket was irrigated with Ancef. 15:15:09 Parameters-- Generator: Mode: DEMAND. Lower Rate: 60bpm. Upper Rate: 130bpm. 15:15:31 Parameters--Ventricular P/R Wave: 10.2mV. Current: 0.2mA; Threshold: 0.4V; Impedence: 1417OHMS. 15:18:03 Subcutaneous closure was completed with 3-0 vicryl plus. 15:19:35 Immobilizer Large opened to sterile field. 15:20:24 Skin closure was completed with 3-0 vicryl. 15:21:17 Lt Chest incision was dressed with Mepilex dressing. 15:29:48 Procedure ended.(Physican Out) 15:29:50 Fluoroscopy time 01.40 minutes. 15:29:59 Fluoroscopy dose: 50.63 mGy 15:29:59 Flurop Dose total: 50.63 15:30:12 Contrast amount:Isovue 300 0ml. 15:30:14 Sharps counted by scrub and verified by R.N. 15:31:55 Post sharps counted by scrub and verified by RN: Sutures: 14; Sponges: 5; Stick needles: 1; Skin needles: 2; Blade: 1; Cautery: 1 15:32:07 Post Procedure Pulses reassessed and unchanged 15:32:09 Post-procedure physical assessment completed. ASA score P 2 - A patient with mild systemic disease as per Raji Bowman MD. 15:32:12 Post procedure rhythm: paced 15:32:17 Estimated blood loss: 10 ml 15:32:18 Post procedure instruction explained to patient.Patient verbalizes understanding. 15:32:19 Patient needs reinforcement of post procedure teaching. 15:32:24 Procedure and supply charges have been captured, reviewed, submitted and are correct. 15:32:27 Procedure Complication : No complications 15:34:15 Vital chart was stopped 15:34:15 See physician's report for complete and final results. 15:34:27 Report given to Med II. 15:34:31 Patient transfered to Med II with Bed. 15:34:40 End room use (Document Last) Device Usage Item Name Manufacture Quantity Catalog Hospital Part Current Minimal Lot# / Number Charge Number Stock Stock Serial# Code Medtronic Medtronic 1 [id number] 5 [id number] Adapta PPM 9.14.18 Single Generator [id number] Medtronic Medtronic 1 4074-58 495563 231608 5 [id number] 4074-58 PPM 11.8.19 Lead 3-0 Vicryl Ethicon 1 [id number] 886389 171332 094254 5 Multipack [id number] 3-0 Vicryl Ethicon 1 [id number] 641102 122512 901303 5 Single Pack [id number] 2-0 Ticron Ethicon 4 [id number] 731924 81832 727529 5 Multipack ([id number]) Mepilex Cardinal 1 724836 567269 360250 649617 5 [facility] ([id number]) Immobilizer Cardinal 1 [id number] 328691 441251 899446 5 [facility] Signature Audit [place] Stage Time Signature Unsigned Intra-Procedure 04/30/2017 Oneil Khan 3:35:03 PM RT(R) Signatures Monitor : Oneil Khan RT Signature : Date : Time : [address] [address]
[~2017-04-25 12:49] MED LIST changes: +CATAPRES0.2 MG PO; +COREG25 MG PO; +FUROSEMIDE20 MG PO; +LANTUS INSULIN10 ML SQ; -LISINOPRIL-HCTZ1 T11 PO; +NEURONTIN 300300 MG PO; +ZESTRIL40 MG PO
[2017-04-25 13:18] LABS: EOSINOPHILS 1.2 % (0-7); HEMATOCRIT 30.5 % (42.0-54.0); HEMOGLOBIN 9.6 g/dL (13.5-17.5); MCHC 31.5 g/dL (31.0-37.0); MCV 85.7 fL (80.0-100.0); MEAN PLATELET VOLUME 10.6 fL (7.4-10.4); MONOCYTES 8.5 % (2-11); NEUTROPHILS 73.3 % (40-80); PLATELET COUNT 181 10x3/uL (130-400); RBC 3.56 10x6/uL (4.20-6.10); RDW 15.5 % (11.5-14.5); WBC 4.1 10x3/uL (4.8-10.8)
[2017-04-25 13:34] LABS: ALKALINE PHOSPHATASE 83 U/L (46-116); ALT (SGPT) 12 U/L (10-68); BILIRUBIN - TOTAL 0.42 mg/dL (0.2-1.3); CALC OSMOLALITY 289 mosm/kg (275-300); CALCIUM 8.5 mg/dL (8.5-10.1); CARBON DIOXIDE 19.8 mmol/L (21.0-32.0); CHLORIDE - SERUM 107 mmol/L (98-107); CREATININE - SERUM 3.5 mg/dL (0.6-1.3); PROTEIN - SERUM 6.4 g/dL (6.4-8.2); SODIUM 138 mmol/L (136-145); UREA NITROGEN 55 mg/dL (7-18); eGFR NON AFRICAN AMERICAN 18 mL/min (90-120)
[2017-04-25 13:35] LABS: GLUCOSE 88 mg/dL (74-106)
[2017-04-25 13:42] LABS: CREATINE KINASE 99 UL (21-232); MAGNESIUM - SERUM 1.9 mg/dL (1.8-2.4); PRO BNP 12335 pg/mL (0-125)
[2017-04-25 13:46] LABS: TROPONIN-I < 0.017 ng/mL (0.000-0.060)
[2017-04-25] MEDS ORDERED: CATAPRES0.2 MG PO (16:01)
[2017-04-25] MEDS ORDERED: HYDRALAZINE HCL50 MG PO (16:03)
[2017-04-25] MEDS ORDERED: SODIUM BICARBO650 MG PO (16:06)
[2017-04-25] MEDS ORDERED: BAYER CHEWABLE81 MG PO (16:07)
[2017-04-25] MEDS ORDERED: VITAMIN D31000 UNIT PO (16:08)
[2017-04-25] MEDS ORDERED: FOLATE0.4 MG PO (16:10)
[2017-04-25] MEDS ORDERED: FERROUS SULFAT325 MG PO (16:19)
[2017-04-26] VITALS (24 sets, daily range): BP systolic 131–167; BP diastolic 52–83
[2017-04-26 08:33] LABS: % SATURATION 9 % (15-55); IRON 40 ug/dl (35-150); TOTAL IRON BIND CAPACITY 411 ug/dl (260-445); UNSAT IRON BIND CAPACITY 371 ug/dl (150-375)
[2017-04-27] VITALS (24 sets, daily range): BP systolic 122–166; BP diastolic 49–78
[2017-04-27 06:02] LABS: BASOPHILS 0.6 % (0-2); EOSINOPHILS 1.8 % (0-7); HEMATOCRIT 29.3 % (42.0-54.0); LYMPHOCYTES 18.5 % (15-50); MCH 26.5 pg (26.0-34.0); MCHC 30.7 g/dL (31.0-37.0); MCV 86.2 fL (80.0-100.0); MEAN PLATELET VOLUME 10.8 fL (7.4-10.4); NEUTROPHILS 68.1 % (40-80); PLATELET COUNT 148 10x3/uL (130-400); RDW 15.3 % (11.5-14.5); WBC 3.4 10x3/uL (4.8-10.8)
[2017-04-27 06:18] LABS: ANION GAP 17.4 mmol/L (8-16); CALCIUM 7.6 mg/dL (8.5-10.1); CARBON DIOXIDE 18.4 mmol/L (21.0-32.0); CREATININE - SERUM 3.6 mg/dL (0.6-1.3); PHOSPHOROUS 5.4 mg/dL (2.5-4.9); POTASSIUM - SERUM 4.8 mmol/L (3.5-5.1)
[2017-04-27 08:20] LABS: FOLATE (FOLIC ACID) - SERUM 18.7 ng/mL (>3.0)
[2017-04-28] VITALS (15 sets, daily range): BP systolic 105–159; BP diastolic 42–81
[2017-04-28 09:35] LABS: ANION GAP 18.5 mmol/L (8-16); CALCIUM 8.2 mg/dL (8.5-10.1); CARBON DIOXIDE 18.7 mmol/L (21.0-32.0); CREATININE - SERUM 3.9 mg/dL (0.6-1.3); POTASSIUM - SERUM 5.2 mmol/L (3.5-5.1)
[2017-04-29 06:00] VITALS: BP 162/66
[2017-04-29 06:10] LABS: BASOPHILS 0.4 % (0-2); EOSINOPHILS 1.4 % (0-7); HEMATOCRIT 30.6 % (42.0-54.0); HEMOGLOBIN 9.4 g/dL (13.5-17.5); IMMATURE GRANULOCYTES 0.2 % (0-5); LYMPHOCYTES 11.4 % (15-50); MCH 25.9 pg (26.0-34.0); MCHC 30.7 g/dL (31.0-37.0); MCV 84.3 fL (80.0-100.0); MEAN PLATELET VOLUME 10.9 fL (7.4-10.4); MONOCYTES 9.6 % (2-11); PLATELET COUNT 203 10x3/uL (130-400); RBC 3.63 10x6/uL (4.20-6.10); RDW 15.5 % (11.5-14.5)
[2017-04-29 06:12] LABS: ANION GAP 17.4 mmol/L (8-16); CALCIUM 8.5 mg/dL (8.5-10.1); CARBON DIOXIDE 19.2 mmol/L (21.0-32.0); CREATININE - SERUM 3.9 mg/dL (0.6-1.3); POTASSIUM - SERUM 4.6 mmol/L (3.5-5.1)
[2017-04-29 08:46] VITALS: BP 172/92
[2017-04-29 12:54] VITALS: BP 166/64
[2017-04-29 23:45] VITALS: BP 170/63
[2017-04-30 04:51] LABS: BASOPHILS 0.4 % (0-2); EOSINOPHILS 1.6 % (0-7); HEMATOCRIT 30.3 % (42.0-54.0); HEMOGLOBIN 9.4 g/dL (13.5-17.5); IMMATURE GRANULOCYTES 0.4 % (0-5); LYMPHOCYTES 11.6 % (15-50); MCH 26.4 pg (26.0-34.0); MCV 85.1 fL (80.0-100.0); MEAN PLATELET VOLUME 10.4 fL (7.4-10.4); PLATELET COUNT 190 10x3/uL (130-400); RBC 3.56 10x6/uL (4.20-6.10); RDW 15.7 % (11.5-14.5); WBC 5.1 10x3/uL (4.8-10.8)
[2017-04-30 05:03] LABS: INR 1.28 (0.85-1.17); PROTIME 15.5 SECONDS (11.6-15.0)
[2017-04-30 05:08] LABS: ANION GAP 18.3 mmol/L (8-16); CALCIUM 8.7 mg/dL (8.5-10.1); CARBON DIOXIDE 19.2 mmol/L (21.0-32.0); CREATININE - SERUM 3.8 mg/dL (0.6-1.3); PHOSPHOROUS 4.2 mg/dL (2.5-4.9); POTASSIUM - SERUM 4.5 mmol/L (3.5-5.1)
[2017-04-30 05:57] VITALS: BP 153/77
[2017-04-30 09:37] VITALS: BP 163/75
[2017-04-30 11:50] VITALS: BP 139/59
[2017-04-30 20:00] VITALS: BP 158/67
[2017-05-01] VITALS: BP 130/70
[2017-05-01 04:00] VITALS: BP 138/68
[2017-05-01 05:37] LABS: BASOPHILS 0.5 % (0-2); EOSINOPHILS 1.1 % (0-7); HEMATOCRIT 29.6 % (42.0-54.0); HEMOGLOBIN 9.1 g/dL (13.5-17.5); IMMATURE GRANULOCYTES 0.3 % (0-5); LYMPHOCYTES 9.8 % (15-50); MCH 26.5 pg (26.0-34.0); MCHC 30.7 g/dL (31.0-37.0); MCV 86.3 fL (80.0-100.0); MEAN PLATELET VOLUME 10.5 fL (7.4-10.4); MONOCYTES 11.6 % (2-11); NEUTROPHILS 76.7 % (40-80); PLATELET COUNT 201 10x3/uL (130-400); RBC 3.43 10x6/uL (4.20-6.10); RDW 16.2 % (11.5-14.5); WBC 6.2 10x3/uL (4.8-10.8)
[2017-05-01 05:57] LABS: ANION GAP 20.1 mmol/L (8-16); CALCIUM 8.6 mg/dL (8.5-10.1); CARBON DIOXIDE 18.4 mmol/L (21.0-32.0); CREATININE - SERUM 3.7 mg/dL (0.6-1.3); PHOSPHOROUS 3.5 mg/dL (2.5-4.9); POTASSIUM - SERUM 4.5 mmol/L (3.5-5.1)
== END 2017-05-01 11:18 | disposition home or self-care (01) | DRG 242 ==
LOC: D.ER 12:49 → D.M2 14:02 → OBSVTIME 14:02 → D.M2 14:02 → D.CVICU 14:03 → D.M2 14:03 → D.CVICU 15:03 → D.M2 04-28 19:41
PROVIDERS: Emergency Medicine; Family Medicine; Internal Medicine Interventional Cardiology; Internal Medicine Nephrology
PROC: 02H63JZ Insertion of Pacemaker Lead into Right Atrium, Percutaneous Approach (ICD-10-PCS; 2017-04-30)
PROC: 02HK3JZ Insertion of Pacemaker Lead into Right Ventricle, Percutaneous Approach (ICD-10-PCS; 2017-04-30)
PROC: 0JH606Z Insertion of Pacemaker, Dual Chamber into Chest Subcutaneous Tissue and Fascia, Open Approach (ICD-10-PCS; principal; 2017-04-30 14:23)
DX: R00.1 Bradycardia, unspecified (principal); I50.21 Acute systolic (congestive) heart failure; I50.33 Acute on chronic diastolic (congestive) heart failure; I13.0 Hypertensive heart and chronic kidney disease with heart failure and stage 1 through stage 4 chronic kidney disease, or unspecified chronic kidney disease; N18.4 Chronic kidney disease, stage 4 (severe); E11.22 Type 2 diabetes mellitus with diabetic chronic kidney disease; E78.5 Hyperlipidemia, unspecified; I25.10 Atherosclerotic heart disease of native coronary artery without angina pectoris; Z95.5 Presence of coronary angioplasty implant and graft; I48.2 Chronic atrial fibrillation

== ENCOUNTER → 2017-05-16 10:13 | Outpatient (CLI) | payer MEDICARE, OTHER ==
[~2017-05-16 10:13] MED LIST changes: +BAYER CHEWABLE81 MG PO; +FERROUS SULFAT325 MG PO; +FOLATE0.4 MG PO; +HYDRALAZINE HCL25 MG PO; +HYDRALAZINE HCL50 MG PO; +LASIX80 MG PO; +METOLAZONE5 MG PO; +NORMODYNE / TR200 MG PO; +PLAVIX75 MG PO; +SODIUM BICARBO650 MG PO; +TIROSINT75 MCG PO; +VITAMIN D31000 UNIT PO
== END | disposition home or self-care (01) ==
LOC: D.RAD 10:13
DX: E11.22 Type 2 diabetes mellitus with diabetic chronic kidney disease (principal); D63.1 Anemia in chronic kidney disease; I12.9 Hypertensive chronic kidney disease with stage 1 through stage 4 chronic kidney disease, or unspecified chronic kidney disease; N18.4 Chronic kidney disease, stage 4 (severe); Z68.33 Body mass index [BMI] 33.0-33.9, adult

== ENCOUNTER 2017-06-10 11:22 | Outpatient (CLI) | payer MEDICARE, OTHER ==
[~2017-06-10] VITALS: Ht 180.3 cm; Wt 100.9 kg
--- NOTE | ~2017-06-10 | HEMODYNAMI ---
PATIENT:OSMAN RIBEIRO MEDICAL RECORD: [id number] : 43 LOCATION:[facility] ADMISSION DATE: 06/10/17 Generatedon:06/10/201714:36 Patient name: OSMAN RIBEIRO Patient #: [id number] SSN: DO B: 1945 Date of study: 06/10/2017 Page: Of Hemodynamic Procedure Report Patient Data Patient Demographics Procedure consent was obtained First Name: OSMAN Gender: Male Last Name: QUINTIN : 1945 Middle Initial: KAILYN Age: 72 year(s) Patient #: [id number] Race: Additional ID: [id number] Contact details Address: [address] [place] [address] STREET State: [place] City: [place] Zip code: [address] Past Medical History Allergies Allergen Reaction Date Comments Reported Other allergy 11/24/2014 aspirin Admission Admission Data Admission Date: 06/10/2017 Admission Time: 11:22 Height (in.): 62 BSA: 2 (m2) Height (cm.): 157.48 BMI: 40.6 (kg/m2) Weight (lbs.): 222 Weight (kg.): 100.7 Lab Results Lab Result Date: 06/10/2017 Lab Result Time: 0:00 Biochemistry Name Units Result Min Max BUN mg/dl 54 --(----)-* 7 18 Creatinine mg/dl 4.4 --(----)-* 0.6 1.3 CBC Name Units Result Min Max Hemoglobin g/dl 8.3 *-(----)-- 13.5 17.5 Procedure Procedure Types Cath Procedure Peripheral Cath Diagnostic Procedure Cath Peripheral Ggjky-Akrolmh-Ooz-Off Procedure Description Procedure Date Procedure Date: 06/10/2017 Procedure Start Time: 14:20 Procedure End Time: 14:31 Procedure Staff Name Function Crow Suarez MD Performing Physician Megan Ordaz RT Monitor Valerie Dobson RN Nurse Nayana Olmos RT Scrub Procedure Data Cath Procedure Fluoroscopy Diagnostic fluoroscopy Total fluoroscopy Time: 0.8 time: 0.8 min min Diagnostic fluoroscopy Total fluoroscopy dose: 271 dose: 271 mGy mGy Contrast Material Contrast Material Type Amount (ml) Isovue 300 72 Entry Location Entry Primary Successful Side Size Upsize Upsize Entry Closure Succes sful Closure Location (Fr) 1 (Fr) 2 (Fr) Remarks Device Remarks Femoral Right 5 Fr Exoseal artery Estimated blood loss: 10 ml Diagnostic catheters Device Type Used For End Catheter Placement DIAGNOSTIC UF 5Fr Procedure catheter ([id number]) Procedure Complications No complications Procedure Medications Medication Administration Route Dosage Oxygen NC 2 l/min Lidocaine 2% added to field 20 Heparin Flush Bag added to field 2 bags (1000units/500ml NS) 0.9% NaCl I.V. 100 ml/hr Versed I.V. 1 mg Fentanyl I.V. 50 mcg Fentanyl I.V. 50 mcg Versed I.V. 1 mg Hemodynamics Rest BSA: 2 (m2) HGB: 8.3 (g/dl) O2 Consumption: Estimated: 224.43 (ml/min) O2 Consum ption indexed: Estimated:112.22 (ml/min/m) Heart Rate: 62 (bpm) Snapshots Pre Cath Intra NCS Post Cath Vital Signs Time Heart Resp SPO2 etCO2 NIBP (mmHg) Rhythm Pain Sedation Rate (ipm) (%) (mmHg) Status Level (bpm) 14:09:10 61 12 99 25.6 133/80(123) Paced 0 (11) 10(A) , No pain 14:13:26 74 15 98 27.8 132/81(113) Paced 0 (11) 10(A) , No pain 14:17:44 62 15 97 23.3 144/77(124) Paced 0 (11) 10(A) , No pain 14:22:02 60 16 96 18 140/81(118) Paced 0 (11) 9(A) , No pain 14:26:16 60 15 97 13.5 133/75(107) Paced 0 (11) 9(A) , No pain 14:30:32 60 15 97 27 131/80(105) Paced 0 (11) 9(A) , No pain 14:35:31 60 16 97 31.6 137/81(118) Paced 0 (11) 10(A) , No pain Medications Time Medication Route Dose Verified Delivered Reason Notes Effe ctiveness by by 14:12:05 0.9% NaCl I.V. 100 Crow Buffie Per ml/hr Erick Dobson RN physician 14:12:43 Oxygen NC 2 Crow Buffie used for l/min Erick Dobson RN procedure 14:12:51 Lidocaine 2% added 20ml Crow Crow for local to vial Erick Suarez MD anesthetic field 14:12:56 Heparin Flush added 2 Crow Crow used for Bag to bags Erick Suarez MD procedure (1000units/500ml field NS) 14:19:14 Versed I.V. 1 mg Crow Buffie for Erick Dobson RN sedation 14:19:19 Fentanyl I.V. 50 Crow Buffie for mcg Erick Dobson RN sedation 14:24:46 Fentanyl I.V. 50 Crow Buffie for mcg Erick Dobson RN sedation 14:24:59 Versed I.V. 1 mg Crow Buffie for Erick Dobson RN sedation Procedure Log Time Note 13:45:09 Patient Height : 62 inches 13:45:12 Patient Weight : 222 lbs 13:46:02 Diagnostic Cath status Elective 13:46:07 Valerie Dobson RN sent for patient. Start room use. 13:46:08 Time tracking: Regular hours (M-F 7:00 - 5:00) 13:46:15 Plan of Care:Hemodynamics will remain stable., Cardiac rhythm will remain stable., Comfort level will be maintained., Respiratory function will remain adequate., Patient/ family verbilizes understanding of procedure., Procedure tolerated without complication., Recovers from procedure without complications.. 13:46:35 Patient received from Pre/Post Procedure Room to CCL 2 Alert and oriented. Tansferred to table in Supine position. 13:46:37 Warm blankets applied, and gabriella hugger turned on for patient comfort. 13:46:38 Correct patient and procedure confirmed by team. 13:46:42 Signed procedure consent form obtained from patient. 13:46:54 H&P Date Dictated: 06/03/2017 Within 30 days and on chart.. 13:46:58 Family in waiting room. 13:46:59 Patient NPO since Midnight. 13:47:36 Was the patient premedicated? Yes 14:00:03 ECG and BP/O2 sat monitors applied to patient. 14:00:05 Vital chart was started 14:08:55 Baseline sample Acquired. 14:09:02 Rhythm: sinus rhythm 14:09:04 Full Disclosure recording started 14:09:16 Is patient on blood thinner?No 14:09:17 Patient diabetic? Yes. 14:09:18 If diabetic: On Metformin? Yes 14:09:22 If on Metformin: Last Dose? 06/09/2017 14:09:27 Snore? Yes 14:09:38 IV patent on arrival in left hand with 0.9% NaCl at KVO. 14:12:05 0.9% NaCl 100 ml/hr I.V. was administered by Valerie Dobson RN; Per physician; 14:12:05 IV started by Valerie Dobson RN inright hand with a 22 gauge IV catheter with 0.9% NaCl at KVO. 14:12:43 Oxygen 2 l/min NC was administered by Valerie Dobson RN; used for procedure; 14:12:51 Lidocaine 2% 20ml vial added to field was administered by Crow Suarez MD; for local anesthetic; 14:12:56 Heparin Flush Bag (1000units/500ml NS) 2 bags added to field was administered by Crow Suarez MD; used for procedure; 14:14:32 IV left forearm D/C'd due to infiltration. 14:15:11 Lab Result : BUN 54 mg/dl 14:15:11 Lab Result : Creatinine 4.4 mg/dl 14:15:11 Lab Result : Hemoglobin 8.3 g/dl 14:15:18 Lab results completed and on chart. 14:15:33 Bilateral groins area was prepped with chlora-prep and draped in sterile fashion 14:15:34 Alarms reviewed by R. N. 14:15:35 Sharps counted by scrub and verified by R.N. 14:15:37 Physician paged 14:15:38 Physician arrived 14:15:39 Final Timeout: patient, procedure, and site verified with staff and physician. All members of the team are in agreement. 14:15:43 Bilateral groins site verified by team. 14:15:46 Physical assessment completed. ASA score P 2 - A patient with mild systemic disease as per Crow Suarez MD. 14:15:51 Sedation plan: IV Moderate Sedation Medication:Versed, Fentanyl 14:16:00 Use device set Femoral Dx 14:16:01 ACIST Syringe (09953) opened to sterile field. 14:16:02 Bag Decanter (2002S) opened to sterile field. 14:16:02 Medline Cath Pack ([id number]) opened to sterile field. 14:16:07 DIAGNOSTIC WIRE .035 260cm J wire (940576) opened to sterile field. 14:16:09 ACIST Hand Control (08020) opened to sterile field. 14:16:09 ACIST Manifold (28584) opened to sterile field. 14:16:10 DIAGNOSTIC Multipack 5Fr catheter set ([id number]) opened to sterile field. 14:16:11 Tegaderm 4 x 4 (1626W) opened to sterile field. 14:16:12 PERCUTANEOUS ENTRY 19GA needle opened to sterile field. 14:19:14 Versed 1 mg I.V. was administered by Valerie Dobson RN; for sedation; 14:19:19 Fentanyl 50 mcg I.V. was administered by Valerie Dobson RN; for sedation; 14:20:43 SHEATH 5Fr Prelude ([id number]) opened to sterile field. 14:20:47 Procedure started. 14:20:58 Local anesthetic to right femoral artery with Lidocaine 2% by Crow Suarez MD.INITIAL ACCESS ONLY 14:23:10 A 5 Fr sheath was inserted into the Right Femoral artery 14:24:11 A DIAGNOSTIC UF 5Fr catheter ([id number]) was advanced over the wire and used for Procedure. 14:24:29 Angiography was performed. 14:24:46 Fentanyl 50 mcg I.V. was administered by Valerie Dobson RN; for sedation; 14:24:59 Versed 1 mg I.V. was administered by Valerie Dobson RN; for sedation; 14:28:24 Right leg runoff performed. 14:28:25 Left leg runoff performed. 14:28:30 Catheter removed. 14:28:35 EXOSEAL 5Fr (EX500) opened to sterile field. 14:28:51 Sheath removed intact; hemostasis achieved with Exoseal to the Right Femoral artery. 14:28:54 Procedure ended.(Physican Out) 14:29:57 Fluoroscopy time 00.80 minutes. 14:30:01 Fluoroscopy dose: 271 mGy 14:30:01 Flurop Dose total: 271 14:30:06 Contrast amount:Isovue 300 72ml. 14:30:08 Sharps counted by scrub and verified by R.N. 14:30:11 Insertion/operative site no bleeding no hematoma. 14:30:15 Post-op/insertion site Right Femoral artery dressed using a 4 x 4 and Tegaderm. 14:30:18 Post Procedure Pulses reassessed and unchanged 14:30:23 Post-procedure physical assessment completed. ASA score P 2 - A patient with mild systemic disease as per Crow Suarez MD. 14:30:27 Post procedure rhythm: unchanged. 14:30:30 Estimated blood loss: 10 ml 14:30:36 Post procedure instruction explained to patient.Patient verbalizes understanding. 14:30:49 Procedure and supply charges have been captured, reviewed, submitted and are correct. 14:31:29 Procedure Complication : No complications 14:31:31 Vital chart was stopped 14:31:32 See physician's report for complete and final results. 14:31:33 Report given to Pre/Post Procedure Room. 14:31:37 Patient transfered to Pre/Post Procedure Room with Stretcher. 14:31:40 Procedure ended. 14:31:40 Full Disclosure recording stopped 14:31:42 End room use (Document Last) Device Usage Item Name Manufacture Quantity Catalog Hospital Part Current Minimal Lot# / Number Charge Number Stock Stock Serial# Code ACIST Acist 1 [id number] [id number] 108948 294051 20 Syringe Medical (72542) Systems Inc Bag Decanter Microtek 1 2001S 399294 16936 910974 5 (2001S) Medical Inc. Medline Cath Cardinal 1 [id number] 734259 01183 280925 5 Pack Health ([id number]) DIAGNOSTIC St Suman 1 938167 747563 495003 766687 30 WIRE .035 260cm J wire (214559) ACIST Hand Acist 1 53487 297754 819393 429299 5 Control Medical (48230) Systems Inc ACIST Acist 1 67254 034277 650780 629254 5 Manifold Medical (67596) Systems Inc DIAGNOSTIC Cardinal 1 [id number] 861990 70379 259526 30 Multipack Health 5Fr catheter set (CR4113) Tegaderm 4 x 3M 1 1626W 146912 501245 601695 5 4 (1626W) PERCUTANEOUS Cook Medical 1 [id number] 252088 157565 5 ENTRY 19GA needle SHEATH 5Fr Merit 1 [id number] 409033 142007 064045 5 Prelude Medical ([id number]) DIAGNOSTIC Cardinal 1 [id number] 726643 985489 610028 10 UF 5Fr Health catheter ([id number]) EXOSEAL 5Fr Cardinal 1 EX500 658110 715415 986148 10 (EX500) Health Signature Audit [place] Stage Time Signature Unsigned Intra-Procedure 06/10/2017 Megan Ordaz 2:36:49 PM RT(R) Signatures Monitor : Megan Ordaz Signature : RT Date : Time : [address] [address]
[~2017-06-10 11:22] MED LIST changes: -HYDRALAZINE HCL25 MG PO; -LASIX80 MG PO; -METOLAZONE5 MG PO; -NORMODYNE / TR200 MG PO; -PLAVIX75 MG PO; -TIROSINT75 MCG PO
[2017-06-10 12:12] VITALS: BP 133/60; Ht 180.3 cm; Wt 100.9 kg
[2017-06-10 12:21] LABS: BASOPHILS 0.7 % (0-2); HEMOGLOBIN 8.3 g/dL (13.5-17.5); IMMATURE GRANULOCYTES 0.2 % (0-5); LYMPHOCYTES 9.1 % (15-50); MCHC 30.7 g/dL (31.0-37.0); MCV 84.6 fL (80.0-100.0); MEAN PLATELET VOLUME 10.6 fL (7.4-10.4); MONOCYTES 10.8 % (2-11); NEUTROPHILS 77.2 % (40-80); PLATELET COUNT 195 10x3/uL (130-400); RBC 3.19 10x6/uL (4.20-6.10); RDW 17.5 % (11.5-14.5); WBC 4.5 10x3/uL (4.8-10.8)
[2017-06-10 12:33] LABS: ANION GAP 21.6 mmol/L (8-16); CALCIUM 8.5 mg/dL (8.5-10.1); CARBON DIOXIDE 17.1 mmol/L (21.0-32.0); CREATININE - SERUM 4.4 mg/dL (0.6-1.3); POTASSIUM - SERUM 4.7 mmol/L (3.5-5.1)
== END 2017-06-10 18:35 | disposition home or self-care (01) ==
LOC: D.CATH 11:22
PROVIDERS: Internal Medicine Cardiovascular Disease
DX: I70.219 Atherosclerosis of native arteries of extremities with intermittent claudication, unspecified extremity (principal); I49.5 Sick sinus syndrome; I25.10 Atherosclerotic heart disease of native coronary artery without angina pectoris; E11.9 Type 2 diabetes mellitus without complications; E78.5 Hyperlipidemia, unspecified; Z01.812 Encounter for preprocedural laboratory examination

== ENCOUNTER 2017-06-24 10:46 | Outpatient (CLI) | payer MEDICARE, OTHER ==
[~2017-06-24] VITALS: Ht 180.3 cm; Wt 103.6 kg
--- NOTE | ~2017-06-24 | HEMODYNAMI ---
PATIENT:OSMAN RIBEIRO MEDICAL RECORD: [id number] : 43 LOCATION:[facility] ADMISSION DATE: 06/24/17 Generatedon:06/24/201715:52 Patient name: OSMAN RIBEIRO Patient #: [id number] SSN: DO B: 1945 Date of study: 06/24/2017 Page: Of Hemodynamic Procedure Report Patient Data Patient Demographics Procedure consent was obtained First Name: OSMAN Gender: Male Last Name: QUINTIN : 1945 [facility] Initial: KAILYN Age: 72 year(s) Patient #: [id number] Race: Additional ID: [id number] Contact details Address: [address] [place] [address] [address] State: [place] City: [place] Zip code: [address] Past Medical History Allergies Allergen Reaction Date Comments Reported Other allergy 11/24/2014 aspirin Other allergy 06/24/2017 Admission Admission Data Admission Date: 06/24/2017 Admission Time: 10:46 Procedure Procedure Types Cath Procedure Peripheral Cath Diagnostic Procedure Peripheral vascular Intervention Atherectomy Atherectomy Fem/Pop w/Plasty Procedure Description Procedure Date Procedure Date: 06/24/2017 Procedure Start Time: 14:12 Procedure End Time: 15:45 Procedure Staff Name Function Crow Suarez MD Performing Physician Megan Ordaz RT Monitor Nayana Olmos RT Scrub Ruiz Amador RN Nurse Procedure Data Cath Procedure Fluoroscopy Diagnostic fluoroscopy Total fluoroscopy Time: time: 29.6 min 29.6 min Diagnostic fluoroscopy Total fluoroscopy dose: dose: 2531 mGy 2531 mGy Contrast Material Contrast Material Type Amount (ml) Isovue 300 72 Entry Location Entry Primary Successful Side Size Upsize Upsize Entry Closure Succes sful Closure Location (Fr) 1 (Fr) 2 (Fr) Remarks Device Remarks Femoral Right 6 Fr 6 Fr 6 Fr Exoseal artery Short Long Short Estimated blood loss: 10 ml Diagnostic catheters Device Type Used For End Catheter Placement DIAGNOSTIC UF 5Fr Procedure catheter ([id number]) DIAGNOSTIC JB3 4Fr catheter (246224) DIAGNOSTIC IM 5Fr Procedure catheter ([id number]) Procedure Complications No complications Procedure Medications Medication Administration Route Dosage 0.9% NaCl I.V. 100 ml/hr Oxygen etCO2 Nasal cannula 2 l/min Heparin Flush Bag added to field 2 bags (1000units/500ml NS) Lidocaine 2% added to field 20 Benadryl I.V. 50 mg Versed I.V. 1 mg Fentanyl I.V. 50 mcg Viperslide Mix(5mg added to field 1 bags Verapamil/5mg Nitro/20cc Viperslide/100cc Bag NS) Versed I.V. 0.5 mg Fentanyl I.V. 25 mcg Versed I.V. 0.5 mg Fentanyl I.V. 25 mcg Heparin Bolus I.V. 7000 units Versed I.V. 1 mg Plavix P.O. 600 mg Hemodynamics Rest Pre Cath Intra NCS Post Cath Vital Signs Time Heart Resp SPO2 etCO2 NIBP (mmHg) Rhythm Pain Sedation Rate (ipm) (%) (mmHg) Status Level (bpm) 13:47:51 61 14 99 24.8 153/85(128) Paced 0 (11) 10(A) , No pain 13:52:09 70 13 99 23.3 152/92(131) Paced 0 (11) 10(A) , No pain 13:56:25 53 14 99 24 136/85(124) Paced 0 (11) 10(A) , No pain 14:00:43 59 13 98 24.8 136/90(119) Paced 0 (11) 10(A) , No pain 14:05:03 60 12 96 25.5 141/82(109) Paced 0 (11) 10(A) , No pain 14:09:23 60 14 97 23.3 152/83(118) Paced 0 (11) 9(A) , No pain 14:13:39 59 14 97 26.3 151/95(128) Paced 0 (11) 9(A) , No pain 14:17:59 60 12 98 26.3 158/92(134) Paced 0 (11) 9(A) , No pain 14:22:21 60 14 98 26.3 147/85(119) Paced 0 (11) 9(A) , No pain 14:26:42 62 14 98 26.3 146/79(122) Paced 0 (11) 10(A) , No pain 14:30:59 60 12 97 25.5 141/78(116) Paced 0 (11) 10(A) , No pain 14:35:15 60 12 97 25.5 134/75(106) Paced 0 (11) 9(A) , No pain 14:40:10 60 13 97 24 136/81(102) Paced 0 (11) 9(A) , No pain 14:44:24 60 15 98 24.8 137/85(107) Paced 0 (11) 9(A) , No pain 14:48:44 60 11 97 26.3 144/80(113) Paced 0 (11) 9(A) , No pain 14:53:01 60 11 98 26.3 142/80(113) Paced 0 (11) 9(A) , No pain 14:57:14 60 12 97 23.3 141/84(117) Paced 0 (11) 9(A) , No pain 15:01:28 59 14 97 20.2 137/82(103) Paced 0 (11) 9(A) , No pain 15:05:43 60 13 97 23.3 139/83(119) Paced 0 (11) 9(A) , No pain 15:10:00 60 15 96 24 131/76(111) Paced 0 (11) 9(A) , No pain 15:15:28 60 14 97 27 135/74(113) Paced 0 (11) 9(A) , No pain 15:19:50 59 12 96 24 128/73(99) Paced 0 (11) 9(A) , No pain 15:24:00 60 12 95 0 127/79(109) Paced 0 (11) 9(A) , No pain 15:28:20 60 12 97 0 126/72(103) Paced 0 (11) 9(A) , No pain 15:32:36 59 12 97 0 139/86(117) Paced 0 (11) 9(A) , No pain 15:37:01 60 12 97 0 142/77(109) Paced 0 (11) 9(A) , No pain 15:41:23 60 15 98 27 153/87(133) Paced 0 (11) 9(A) , No pain 15:45:49 60 11 97 27 153/86(120) Paced 0 (11) 10(A) , No pain Medications Time Medication Route Dose Verified Delivered Reason Notes Effectiveness by by 13:54:47 0.9% NaCl I.V. 100 Ruiz Ruiz Per physician ml/hr Perry Amador RN RN 13:54:57 Oxygen etCO2 2 Ruiz Ruiz Per physician Nasal l/min Perry Amador cannula RN RN 13:55:13 Heparin Flush added 2 Ruiz Ruiz used for Bag to bags Lordeven Amador procedure (1000units/500ml field RN RN NS) 13:55:24 Lidocaine 2% added 20ml Ruiz Ruiz for local to vial Lorigan Perry anesthetic field RN RN 13:55:33 Benadryl I.V. 50 mg Ruiz Ruiz Per physician Perry Amador RN RN 14:09:19 Versed I.V. 1 mg Ruiz Ruiz for sedation Perry Amador RN RN 14:09:28 Fentanyl I.V. 50 Ruiz Ruiz for sedation mcg Perry Amador RN RN 14:21:34 Viperslide added 1 Ruiz Ruiz used for Mix(5mg to bags Lorigan Lordeven procedure Verapamil/5mg field RN RN Nitro/20cc Viperslide/100cc Bag NS) 14:29:52 Versed I.V. 0.5 Ruiz Ruiz for sedation mg Perry Amador RN RN 14:29:58 Fentanyl I.V. 25 Ruiz Ruiz for sedation mcg Perry Amador RN RN 14:49:48 Versed I.V. 0.5 Ruiz Ruiz for sedation mg Perry Amador RN RN 14:49:55 Fentanyl I.V. 25 Ruiz Ruiz for sedation mcg Perry Amador RN RN 14:58:06 Heparin Bolus I.V. 7,000 Ruiz Ruiz for units Perry Amador anticoagulation RN RN 15:14:49 Versed I.V. 1 mg Ruiz Ruiz for sedation Perry Amador RN RN 15:42:16 Plavix P.O. 600 Ruiz Ruiz for mg Perry Amador antiplatelet RN RN therapy Procedure Log Time Note 13:30:44 Megan GRIMM(R) sent for patient. Start room use. 13:30:45 Time tracking: Regular hours (M-F 7:00 - 5:00) 13:30:50 Plan of Care:Hemodynamics will remain stable., Cardiac rhythm will remain stable., Comfort level will be maintained., Respiratory function will remain adequate., Patient/ family verbilizes understanding of procedure., Procedure tolerated without complication., Recovers from procedure without complications.. 13:46:29 Patient received from Pre/Post Procedure Room to CCL 2 Alert and oriented. Tansferred to table in Supine position. 13:46:30 Warm blankets applied, and gabriella hugger turned on for patient comfort. 13:46:30 Correct patient and procedure confirmed by team. 13:46:31 Signed procedure consent form obtained from patient. 13:46:32 ECG and BP/O2 sat monitors applied to patient. 13:46:33 Vital chart was started 13:46:34 Full Disclosure recording started 13:46:36 Rhythm: sinus rhythm 13:50:19 H&P Date Dictated: 06/24/2017 Within 30 days and on chart.. 13:50:22 Family in patients room. 13:50:24 Patient NPO since Midnight. 13:50:37 Patient allergic to Other allergy 13:50:42 Was the patient premedicated? Yes 13:50:43 Is patient on blood thinner?No 13:50:56 Patient diabetic? Yes. 13:50:58 If diabetic: On Metformin? Yes 13:51:02 If on Metformin: Last Dose? 06/23/2017 13:51:07 Snore? Yes 13:51:08 Sleep apnea? No 13:51:14 Dentures? Yes out 13:51:25 IV patent on arrival in left forearm with 0.9% NaCl at KVO. 13:51:30 Lab results completed and on chart. 13:51:34 Right groin area was prepped with chlora-prep and draped in sterile fashion 13:51:34 Alarms reviewed by R. N. 13:51:35 Sharps counted by scrub and verified by R.N. 13:51:37 Physician paged 13:54:11 Procedure type changed to Cath procedure, Peripheral Cath Diagnostic Procedure, Peripheral vascular Intervention, Atherectomy, Atherectomy Fem/Pop w/Plasty 13:54:47 0.9% NaCl 100 ml/hr I.V. was administered by Ruiz Amador RN; Per physician; 13:54:57 Oxygen 2 l/min etCO2 Nasal cannula was administered by Ruiz Amador RN; Per physician; 13:55:13 Heparin Flush Bag (1000units/500ml NS) 2 bags added to field was administered by Ruiz Amador RN; used for procedure; 13:55:21 Use device set Femoral Dx 13:55:23 ACIST Syringe (68001) opened to sterile field. 13:55:24 Lidocaine 2% 20ml vial added to field was administered by Ruiz Amador RN; for local anesthetic; 13:55:24 Bag Decanter (2002S) opened to sterile field. 13:55:25 Medline Cath Pack ([id number]) opened to sterile field. 13:55:26 DIAGNOSTIC WIRE .035 260cm J wire (172871) opened to sterile field. 13:55:27 ACIST Hand Control (36878) opened to sterile field. 13:55:28 ACIST Manifold (57805) opened to sterile field. 13:55:33 Benadryl 50 mg I.V. was administered by Ruiz Amador RN; Per physician; 13:55:37 Tegaderm 4 x 4 (1626W) opened to sterile field. 13:55:39 PERCUTANEOUS ENTRY 19GA needle opened to sterile field. 13:55:55 SHEATH 6Fr Prelude ([id number]) opened to sterile field. 13:57:33 GLIDE WIRE ANGLE 260cm (PL8026) opened to sterile field. 13:58:04 INFLATOR Merit BasixCompak (HP5823) opened to sterile field. 14:01:08 Zero performed for pressure channel P1 14:01:35 SHEATH 6FR Destination (RSR01) opened to sterile field. 14:08:49 Physician arrived 14:08:50 --------ALL STOP TIME OUT------ 14:08:51 Final Timeout: patient, procedure, and site verified with staff and physician. All members of the team are in agreement. 14:09:19 Versed 1 mg I.V. was administered by Ruiz Amador RN; for sedation; 14:09:28 Fentanyl 50 mcg I.V. was administered by Ruiz Amador RN; for sedation; 14:11:40 Right groin site verified by team. 14:11:45 Physical assessment completed. ASA score P 2 - A patient with mild systemic disease as per Crow Suarez MD. 14:11:49 Sedation plan: IV Moderate Sedation Medication:Versed, Fentanyl 14:11:53 Procedure started. 14:12:02 Local anesthetic to right femoral artery with Lidocaine 2% by Crow Suarez MD.INITIAL ACCESS ONLY 14:20:01 A 6 Fr Short sheath was inserted into the Right Femoral artery 14:20:54 A DIAGNOSTIC UF 5Fr catheter ([id number]) was advanced over the wire and used for Procedure.GLIDEWIRE 14:21:34 Viperslide Mix(5mg Verapamil/5mg Nitro/20cc Viperslide/100cc Bag NS) 1 bags added to field was administered by Ruiz Amador RN; used for procedure; 14:26:37 TORQUE DEVICE PLASTIC .038 ( TD01) opened to sterile field. 14:29:52 Versed 0.5 mg I.V. was administered by Ruiz Amador RN; for sedation; 14:29:58 Fentanyl 25 mcg I.V. was administered by Ruiz Amador RN; for sedation; 14:38:28 A DIAGNOSTIC JB3 4Fr catheter (673127) was advanced over the wire and used for . 14:45:14 GLIDE CATHETER 5FR ANGLED 100cm (CG508) opened to sterile field. 14:49:22 A DIAGNOSTIC IM 5Fr catheter ([id number]) was advanced over the wire and used for Procedure. 14:49:48 Versed 0.5 mg I.V. was administered by Ruiz Amador RN; for sedation; 14:49:55 Fentanyl 25 mcg I.V. was administered by Ruiz Amador RN; for sedation; 14:49:57 Sheath upsized to a 6 Fr Long. 14:57:39 CXI SUPPORT .018 150CM STR catheter (Y11244) opened to sterile field. 14:57:42 WHISPER 300cm guide wire ([id number]) opened to sterile field. 14:58:06 Heparin Bolus 7,000 units I.V. was administered by Ruiz Amador RN; for anticoagulation; 14:59:31 CXI ADVANCED THROUGH SHEATH DOWN THE LEFT SFA. WHISPER WIRE EXCHANGED FOR VIPER WIRE 15:02:51 STEALTH 360 1.50 CLASSIC Atherectomy catheter ([id number]) opened to sterile field. 15:03:50 Diamondback solution initiated IA via Diamondback device per MD: 0.9% NS 1000ml, Viperslide 20ml, Verapamil 5mg, Nitroglycerin 5mg. 15:04:06 Left leg runoff performed. 15:06:26 Diamondback atherectomy performed on Superficial Femoral. 15:09:25 SEVERAL PASSES MADE WITH DIAMONDBACK 15:14:49 Versed 1 mg I.V. was administered by Ruiz Amador RN; for sedation; 15:23:30 Diamondback catheter removed. 15:28:59 Inflate balloon Inflation number: 1 A SABER 5.0 X 200 X 150 balloon ([id number]) was prepped and advanced across the Mid Femoral, Left, then inflated to 4 JUD for 3:15 (min:sec). 15:33:05 Inflation number: 2 The SABER 5.0 X 200 X 150 balloon ([id number]) was reinflated across the Mid Femoral, Left, to 4 JUD for 3:25 (min:sec). 15:34:30 Balloon removed over the wire. 15:36:45 EXOSEAL 6Fr (EX600) opened to sterile field. 15:37:00 Wire removed. 15:39:14 Sheath upsized to a 6 Fr Short. 15:39:14 Sheath removed intact; hemostasis achieved with Exoseal to the Right Femoral artery. 15:39:19 Procedure ended.(Physican Out) 15:40:16 Fluoroscopy time 29.60 minutes. 15:40:23 Flurop Dose total: 2531 15:40:23 Fluoroscopy dose: 2531 mGy 15:40:28 Contrast amount:Isovue 300 72ml. 15:40:38 Sharps counted by scrub and verified by R.N. 15:40:39 Insertion/operative site no bleeding no hematoma. 15:40:44 Post-op/insertion site Right Femoral artery dressed using a 4 x 4 and Tegaderm. 15:40:46 Post Procedure Pulses reassessed and unchanged 15:40:50 Post-procedure physical assessment completed. ASA score P 2 - A patient with mild systemic disease as per Crow Suarez MD. 15:40:53 Post procedure rhythm: unchanged. 15:40:56 Estimated blood loss: 10 ml 15:41:10 Post procedure instruction explained to patient.Patient verbalizes understanding. 15:41:21 Procedure and supply charges have been captured, reviewed, submitted and are correct. 15:42:16 Plavix 600 mg P.O. was administered by Ruiz Amador RN; for antiplatelet therapy; 15:45:48 Procedure Complication : No complications 15:45:50 Vital chart was stopped 15:45:51 See physician's report for complete and final results. 15:45:53 Report given to Pre/Post Procedure Room. 15:45:57 Patient transfered to Pre/Post Procedure Room with Stretcher. 15:45:59 Procedure ended. 15:45:59 Full Disclosure recording stopped 15:46:03 End room use (Document Last) Intervention Summary Intervention Notes Time ActionType Lesion and Equipment Action# Pressure Duration Attributes Used 15:28:59 Inflate Mid SABER 5.0 X 1 4 03:15 balloon Femoral, 200 X 150 Left balloon ([id number]) 15:33:05 Reinflate Mid SABER 5.0 X 2 4 03:25 balloon Femoral, 200 X 150 Left balloon ([id number]) Device Usage Item Name Manufacture Quantity Catalog Number Hospital Part Cu rrent Minimal Lot# / Charge Number Stock Stock Serial# Code ACIST Syringe Acist Medical 1 10663 199484 601067 99 1533 20 (99687) Systems Inc Bag Decanter Microtek 1 2001S 803731 60031 99 0400 5 (2001S) Medical Inc. Medline Cath Pack Cardinal 1 [id number] 201244 01573 99 1697 5 ([id number]) Health DIAGNOSTIC WIRE [facility] 1 654533 373024 515824 99 2898 30 .035 260cm J wire (477961) ACIST Hand Control Acist Medical 1 34970 325216 905206 99 1955 5 (41032) Systems Inc ACIST Manifold Acist Medical 1 16879 404496 566559 99 1972 5 (33862) Systems Inc Tegaderm 4 x 4 3M 1 1626W 937130 299228 99 5427 5 (1626W) PERCUTANEOUS ENTRY Cook Medical 1 T02858 990718 99 9414 5 19GA needle SHEATH 6Fr Prelude [facility] Medical 1 [id number] 059468 956498 99 9930 5 ([id number]) GLIDE WIRE ANGLE Terumo 1 GO0059 164134 068126 99 9634 5 260cm (WM5884) INFLATOR [facility] Medical 1 NM8208 363575 416420 99 4943 15 BasixCompak (ML1015) SHEATH 6FR Terumo 1 RSR01 977392 39965 99 9780 5 Destination (RSR01) DIAGNOSTIC UF 5Fr Cardinal 1 110972O7 432293 061820 99 9790 10 catheter Health (122925H1) TORQUE DEVICE [place] 1 TD01 566839 365073 99 9515 5 PLASTIC .038 ( Scientific TD01) DIAGNOSTIC JB3 4Fr Cardinal 1 532-438 141609 444956 99 9978 5 catheter (137127) Health GLIDE CATHETER 5FR Terumo 1 CG508 391543 47333 99 9907 4 ANGLED 100cm (CG508) DIAGNOSTIC IM 5Fr Cardinal 1 533103E 068761 820381 99 9788 5 catheter (350447R) Health CXI SUPPORT .018 Cook Medical 1 E51529 314089 521101 99 9978 5 150CM STR catheter (V10295) WHISPER 300cm Rich 1 [id number] 760971 567846 99 6953 5 guide wire Vascular (1503367NE) STEALTH 360 1.50 Cardiovascular 1 [id number] 377724 99 9990 5 CLASSIC systems 5 Atherectomy catheter ([id number]) SABER 5.0 X 200 X Cardinal 1 [id number] 625831 99 9995 5 150 balloon Health ([id number]) EXOSEAL 6Fr Cardinal 1 EX600 284939 063187 99 8006 10 (EX600) Health Signature Audit [place] Stage Time Signature Unsigned Intra-Procedure 06/24/2017 Megan Ordaz 3:52:15 PM RT(R) Signatures Monitor : Megan Ordaz Signature : RT Date : Time : [place] [id number] [place], [place] [address]
[2017-06-24] MEDS ORDERED: TIROSINT75 MCG PO (11:09)
[2017-06-24] MEDS ORDERED: HYDRALAZINE HCL25 MG PO (11:15)
[2017-06-24] MEDS ORDERED: NORMODYNE / TR200 MG PO (11:16)
[2017-06-24 11:31] LABS: BASOPHILS 1.2 % (0-2); EOSINOPHILS 2.4 % (0-7); HEMATOCRIT 27.6 % (42.0-54.0); HEMOGLOBIN 8.7 g/dL (13.5-17.5); IMMATURE GRANULOCYTES 0.2 % (0-5); LYMPHOCYTES 11.1 % (15-50); MCH 26.4 pg (26.0-34.0); MCHC 31.5 g/dL (31.0-37.0); MCV 83.9 fL (80.0-100.0); NEUTROPHILS 73.1 % (40-80); PLATELET COUNT 200 10x3/uL (130-400); RBC 3.29 10x6/uL (4.20-6.10); RDW 18.8 % (11.5-14.5); WBC 4.2 10x3/uL (4.8-10.8)
[2017-06-24 11:32] VITALS: BP 142/77; Ht 180.3 cm; Wt 103.6 kg
[2017-06-24 12:20] LABS: ANION GAP 21.3 mmol/L (8-16); CALCIUM 8.7 mg/dL (8.5-10.1); CREATININE - SERUM 4.1 mg/dL (0.6-1.3); POTASSIUM - SERUM 4.3 mmol/L (3.5-5.1)
[2017-06-24] MEDS ORDERED: PLAVIX75 MG PO (15:56)
== END 2017-06-24 20:05 | disposition home or self-care (01) ==
LOC: D.CATH 10:46
PROVIDERS: Internal Medicine Cardiovascular Disease
DX: I70.219 Atherosclerosis of native arteries of extremities with intermittent claudication, unspecified extremity (principal); I25.10 Atherosclerotic heart disease of native coronary artery without angina pectoris; I49.5 Sick sinus syndrome; Z01.812 Encounter for preprocedural laboratory examination

== ENCOUNTER 2017-07-04 10:03 | Outpatient (CLI) | payer MEDICARE, OTHER ==
[~2017-07-04] VITALS: Ht 180.3 cm; Wt 111.8 kg
[~2017-07-04 10:03] MED LIST changes: +HYDRALAZINE HCL25 MG PO; +NORMODYNE / TR200 MG PO; +PLAVIX75 MG PO; +TIROSINT75 MCG PO
[2017-07-04] MEDS ORDERED: NORVASC2.5 MG PO (11:54)
[2017-07-04] MEDS ORDERED: LASIX80 MG PO (11:55)
[2017-07-04] MEDS ORDERED: METOLAZONE5 MG PO (11:55)
[2017-07-04 11:59] VITALS: BP 139/80; Ht 180.3 cm; Wt 111.8 kg
== END 2017-07-04 12:15 | disposition home or self-care (01) ==
LOC: D.OPS 10:03
DX: N18.4 Chronic kidney disease, stage 4 (severe) (principal); R80.9 Proteinuria, unspecified; R63.5 Abnormal weight gain; Z01.812 Encounter for preprocedural laboratory examination

== ENCOUNTER → 2017-07-16 07:38 | Outpatient (CLI) | payer MEDICARE, OTHER ==
[2017-07-04 11:59] VITALS: BMI 34.3
[~2017-07-16 07:38] MED LIST changes: +LASIX80 MG PO; +METOLAZONE5 MG PO
== END | disposition home or self-care (01) ==
LOC: D.NM 07:38
DX: N18.4 Chronic kidney disease, stage 4 (severe) (principal); K31.84 Gastroparesis

== ENCOUNTER 2017-10-29 06:33 | Day surgery (SDC) | payer MEDICARE, OTHER ==
[~2017-10-29] VITALS: Ht 180.3 cm; Wt 93.0 kg
--- NOTE | ~2017-10-29 | OP ---
PATIENT NAME: OSMAN FERMIN MEDICAL RECORD: [id number] :43 LOCATION:D[facility] ADMISSION DATE: SURGEON: JENNY CORCORAN MD DATE OF OPERATION: 10/29/2017 REFERRING PHYSICIAN: Dr. Dickerson. PREOPERATIVE DIAGNOSES: CKD V, diabetes, and hypertension. POSTOPERATIVE DIAGNOSES: CKD V, diabetes, and hypertension. OPERATION PERFORMED: Creation of a brachiocephalic AV fistula in the right arm. SURGEON: Jenny Corcoran MD ANESTHESIA: General with LMA per PC SUPPORT SPECIALIST. PREOPERATIVE NOTE: Mr. Fermin is a very pleasant 72-year-old white male patient with chronic kidney disease, who is thought to likely require dialysis within a few months. He was referred by Dr. Dickerson for dialysis access. 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 He has excellent veins on the right. He is right handed. We will plan a fistula on the right. Under anesthesia in supine position, the patient was prepped and draped in sterile manner and nitroglycerin was applied to the skin of the arm and forearm and a [place] drain was used as a proximal venous tourniquet. I examined him with Duplex Ultrasound. He had obviously visually a large network of superficial veins in the forearm, which drained predominantly to the basilic vein. The cephalic vein at the wrist and in the forearm was small and had a complex pattern of collaterals and tributaries whereas the cephalic vein above the antecubital space was of good size and had few tributaries and little tortuosity and I thought would make a good fistula. I made a transverse antecubital incision and exposed the median cubital vein, which drains to the cephalic and mobilized the brachial artery. The vessels were controlled and occluded as needed with atraumatic vascular clamps and Silastic loops. The vein was treated with topical papaverine and was ligated distally, divided and bevelled and then flushed with heparinized saline and hydrostatically dilated to prepare it for anastomosis. The artery was opened for a distance of about 6-7 mm. It was then flushed proximally and distally with heparinized saline and an end-to-side, end of vein to side of artery anastomosis was carried out with running 7-0 Prolene. The suture line was treated with Evicel before restoring flow in the artery. The suture line was hemostatic and there was good flow immediately established in the fistula. This was confirmed with Doppler and there was continuous pulsatile flow in the brachial artery above and below the anastomosis with a high resistance signal distal to the anastomosis as would be expected or normal. The wound was irrigated with Ancef and gentamicin solution. The patient did have a preop regional nerve block. It was not necessary to use local anesthetic in the wound. The wound was closed without the use of a drain approximating subcutaneous tissues with interrupted inverted 3-0 Vicryl and the skin with a running intracuticular 4-0 Monocryl and Dermabond glue. It was dressed with Maxorb Ag, Tegaderm, and Cavilon skin prep. The patient was then awakened and taken to the recovery room in stable condition and with an excellent thrill and audible bruit over his new fistula. OPERATIVE REPORT [id number] OSMAN FERMIN PLAN: We will let Mr. Fermin go home this afternoon from the outpatient department. He will return to see me in my office next week. I have given him a prescription for 10 tablets of [place] 5/325. He can take 1 every 4 hours p.r.n. for pain. Otherwise, he is to continue or resume his home medications, usual diet and activities. Between now and his appointment, he can shower and wash normally over the waterproof plastic bandage and I plan to remove it when he sees me in the office next week. TRANSINT:[id number] Voice Confirmation ID: [id number] DOCUMENT ID: [id number] JENNY CORCORAN MD at 1742 CC: LUCINDA DICKERSON MD [id number] DICTATION DATE: 10/29/17 [address]: 10/29/17 1531 [facility] 10/29/17 [place] [id number] [place] [id number]
[2017-10-29 06:48] LABS: BASOPHILS 0.8 % (0-2); EOSINOPHILS 4.2 % (0-7); HEMATOCRIT 33.1 % (42.0-54.0); IMMATURE GRANULOCYTES 0.3 % (0-5); LYMPHOCYTES 6.9 % (15-50); MCH 27.4 pg (26.0-34.0); MCHC 33.2 g/dL (31.0-37.0); MCV 82.5 fL (80.0-100.0); MEAN PLATELET VOLUME 9.6 fL (7.4-10.4); MONOCYTES 9.2 % (2-11); NEUTROPHILS 78.6 % (40-80); PLATELET COUNT 161 10x3/uL (130-400); RBC 4.01 10x6/uL (4.20-6.10); RDW 15.8 % (11.5-14.5); WBC 6.6 10x3/uL (4.8-10.8)
[2017-10-29 06:58] LABS: APTT 33.9 SECONDS (22.8-39.4); INR 1.1 (0.85-1.17); PROTIME 13.8 SECONDS (11.6-15.0)
[2017-10-29 07:14] LABS: ANION GAP 22.9 mmol/L (8-16); CALCIUM 7.6 mg/dL (8.5-10.1); CARBON DIOXIDE 19.7 mmol/L (21.0-32.0); CREATININE - SERUM 4.8 mg/dL (0.6-1.3); POTASSIUM - SERUM 3.6 mmol/L (3.5-5.1)
[2017-10-29] MEDS ORDERED: FLOMAX0.4 MG PO (07:39)
[2017-10-29] MEDS ORDERED: SODIUM BICARBO650 MG PO (07:40)
[2017-10-29 07:48] VITALS: BP 127/68; Ht 180.3 cm; Wt 93.0 kg
[2017-10-29] MEDS ORDERED: HYDROCODON-ACE1 EAC7 PO (14:58)
== END 2017-10-29 16:54 | disposition home or self-care (01) ==
LOC: D.OPS 06:33
PROVIDERS: Surgery
DX: E11.22 Type 2 diabetes mellitus with diabetic chronic kidney disease (principal); I12.0 Hypertensive chronic kidney disease with stage 5 chronic kidney disease or end stage renal disease; N18.5 Chronic kidney disease, stage 5; Z95.0 Presence of cardiac pacemaker; Z01.812 Encounter for preprocedural laboratory examination

== ENCOUNTER → 2017-11-12 08:20 | Outpatient (CLI) | payer MEDICARE, OTHER ==
[2017-10-29 07:48] VITALS: BMI 28.6
[~2017-11-12 08:20] MED LIST changes: +FLOMAX0.4 MG PO; +HYDROCODON-ACE1 EAC7 PO
== END | disposition home or self-care (01) ==
LOC: D.CT 08:20
DX: R53.1 Weakness (principal); M21.371 Foot drop, right foot

== ENCOUNTER 2017-12-04 19:09 | Emergency (ER) | payer MEDICARE, OTHER ==
[~2017-12-04] VITALS: Ht 180.3 cm; Wt 92.5 kg
[2017-12-04 19:24] VITALS: Ht 180.3 cm; Wt 92.5 kg
[2017-12-04 22:30] VITALS: BP 132/63
== END 2017-12-04 22:30 | disposition home or self-care (01) ==
LOC: D.ER 19:09
DX: L76.22 Postprocedural hemorrhage of skin and subcutaneous tissue following other procedure (principal); Z48.00 Encounter for change or removal of nonsurgical wound dressing; E11.9 Type 2 diabetes mellitus without complications; I10 Essential (primary) hypertension; K21.9 Gastro-esophageal reflux disease without esophagitis

== ENCOUNTER 2018-02-19 09:02 | Outpatient (CLI) | payer MEDICARE, OTHER ==
[~2018-02-19] VITALS: Ht 180.3 cm; Wt 95.9 kg
[2018-02-19 13:56] VITALS: BP 102/42; Ht 180.3 cm; Wt 95.9 kg
== END 2018-02-19 18:04 | disposition home or self-care (01) ==
LOC: D.OPS 09:02 → D.LABREF 09:02 → D.OPS 18:04
DX: D64.9 Anemia, unspecified (principal); Z01.812 Encounter for preprocedural laboratory examination

== ENCOUNTER 2018-02-28 10:51 | Outpatient (CLI) | payer MEDICARE, OTHER ==
[~2018-02-28] VITALS: Ht 180.3 cm; Wt 95.5 kg
[2018-02-28 13:32] VITALS: BP 125/50; Ht 180.3 cm; Wt 95.5 kg
--- NOTE | 2018-02-28 17:29 | NUR ---
2ND UNIT PRBC'S FINISHED TRANSFUSING, PATIENT WITHOUT SIGNS OR SYMPTOMS OF TRANSFUSION REACTION. IV FLUSHED WITH NS
== END 2018-02-28 18:00 | disposition home or self-care (01) ==
LOC: D.OPS 10:51
DX: D64.9 Anemia, unspecified (principal); Z01.812 Encounter for preprocedural laboratory examination

== ENCOUNTER → 2018-02-28 11:07 | Outpatient (CLI) | payer MEDICARE, OTHER ==
[2018-02-19 13:56] VITALS: BMI 29.5
[~2018-02-28 11:07] MED LIST changes: +COLACE100 MG PO; +RENA-VITE TABL0.8 MG PO; +RESTORIL15 MG PO; +TUMS X-STR300 MG PO
== END | disposition home or self-care (01) ==
LOC: D.LABREF 11:07
DX: D64.9 Anemia, unspecified (principal)

== ENCOUNTER 2018-03-03 13:29 | Inpatient (IN) | payer MEDICARE, OTHER ==
[~2018-03-03] VITALS: Ht 180.3 cm; Wt 93.4 kg
[~2018-03-03 13:29] MED LIST changes: -COLACE100 MG PO; -RENA-VITE TABL0.8 MG PO; -RESTORIL15 MG PO; -TUMS X-STR300 MG PO
--- NOTE | 2018-03-03 14:20 | NUR ---
20G IV TO LEFT FOREARM WITH ONE ATTEMPT. SECURED WITH TAPE. COVERED WITH OPSITE. INITIALED AND DATED.
[2018-03-03] MEDS ORDERED: RENA-VITE TABL0.8 MG PO (14:39)
[2018-03-03] MEDS ORDERED: TUMS X-STR300 MG PO (14:41)
[2018-03-03] MEDS ORDERED: COLACE100 MG PO (14:42)
[2018-03-03 15:31] VITALS: BMI 32.1
[2018-03-03 15:36] LABS: BASOPHILS 0.6 % (0-2); EOSINOPHILS 0.6 % (0-7); HEMATOCRIT 22.9 % (42.0-54.0); IMMATURE GRANULOCYTES 0.2 % (0-5); LYMPHOCYTES 6.8 % (15-50); MCH 31.1 pg (26.0-34.0); MCHC 30.6 g/dL (31.0-37.0); MCV 101.8 fL (80.0-100.0); MEAN PLATELET VOLUME 10.4 fL (7.4-10.4); MONOCYTES 8.8 % (2-11); PLATELET COUNT 157 10x3/uL (130-400); RBC 2.25 10x6/uL (4.20-6.10); RDW 21.9 % (11.5-14.5); WBC 5.4 10x3/uL (4.8-10.8)
[2018-03-03 15:45] LABS: % SATURATION 18 % (15-55); IRON 87 ug/dl (35-150); TOTAL IRON BIND CAPACITY 474 ug/dl (260-445); UNSAT IRON BIND CAPACITY 387 ug/dl (150-375)
[2018-03-03 15:47] LABS: ALBUMIN 2.7 g/dL (3.4-5.0); ANION GAP 17.3 mmol/L (8-16); BILIRUBIN - TOTAL 0.61 mg/dL (0.2-1.3); CALCIUM 8.1 mg/dL (8.5-10.1); CARBON DIOXIDE 26.3 mmol/L (21.0-32.0); CREATININE - SERUM 2.9 mg/dL (0.6-1.3); POTASSIUM - SERUM 3.6 mmol/L (3.5-5.1); PROTEIN - SERUM 5.8 g/dL (6.4-8.2)
--- NOTE | 2018-03-03 15:58 | NUR ---
ASSESSMENT COMPLETE TELEMETRY APPLIED PT DENIES ANY NEEDS OR DISCOMFORT
[2018-03-03] MEDS ORDERED: RESTORIL15 MG PO ×2 (16:29→16:30)
--- NOTE | 2018-03-03 19:20 | NUR ---
RECEIVED REPORT, WILL ASSUME CARE OF PT, 1 UNIT OF PRBC INFUSING, BED IS LOW, SRX2, CALL LIGHT IN REACH, WILL CONTINUE PLAN OF CARE
--- NOTE | 2018-03-03 19:30 | NUR ---
BE BERNARD STARTED 2 UNIT OF PRBC, VITALS ARE STABLE, WILL CONTINUE PLAN OF CARE
[2018-03-03 20:56] VITALS: BP 135/59
--- NOTE | 2018-03-03 21:20 | NUR ---
[id number] 4 UNITS OF INSULIN
--- NOTE | 2018-03-03 22:19 | NUR ---
2ND UNIT OF PRBC JUST FINISHED, WILL CONTINUE PLAN OF CARE
--- NOTE | 2018-03-03 23:26 | NUR ---
CEMENT FINISHER HELPER AT BEDSIDE TO OBTAIN VITALS, CALL LIGHT IN REACH. WILL CONTINUE WITH PLAN OF CARE.
[2018-03-04 02:02] VITALS: BP 137/62
--- NOTE | 2018-03-04 06:11 | NUR ---
[id number] COVERAGE NEEDED
[2018-03-04 06:34] LABS: ALBUMIN 2.8 g/dL (3.4-5.0); ANION GAP 17.4 mmol/L (8-16); BILIRUBIN - TOTAL 0.99 mg/dL (0.2-1.3); CALCIUM 8.2 mg/dL (8.5-10.1); CARBON DIOXIDE 23.3 mmol/L (21.0-32.0); CREATININE - SERUM 3.2 mg/dL (0.6-1.3); POTASSIUM - SERUM 3.7 mmol/L (3.5-5.1); PROTEIN - SERUM 5.9 g/dL (6.4-8.2)
[2018-03-04 06:53] LABS: BASOPHILS 0.6 % (0-2); EOSINOPHILS 1.7 % (0-7); HEMATOCRIT 27.1 % (42.0-54.0); IMMATURE GRANULOCYTES 0.2 % (0-5); LYMPHOCYTES 9.4 % (15-50); MCH 31.4 pg (26.0-34.0); MCHC 31.4 g/dL (31.0-37.0); MEAN PLATELET VOLUME 10.6 fL (7.4-10.4); MONOCYTES 8.3 % (2-11); NEUTROPHILS 79.8 % (40-80); PLATELET COUNT 166 10x3/uL (130-400); RDW 21.9 % (11.5-14.5); WBC 5.3 10x3/uL (4.8-10.8)
[2018-03-04 06:55] LABS: HEMOGLOBIN 8.5 g/dL (13.5-17.5); RBC 2.71 10x6/uL (4.20-6.10)
[2018-03-04 08:22] LABS: FOLATE (FOLIC ACID) - SERUM >20.0 ng/mL (>3.0)
[2018-03-04 09:34] VITALS: BP 137/81
[2018-03-04 12:30] VITALS: Ht 180.3 cm; Wt 93.4 kg
[2018-03-04 13:11] VITALS: BP 148/56
--- NOTE | 2018-03-04 17:46 | NUR ---
ARRIVE BACK TO ROOM VIA BED FROM EGD. ALERT AND ORIENTED X4. BP-131/63, HR-62, O2 SAT-100%. DENIES ANY NEEDS. CONTINUE PLAN OF CARE AND SAFETY PRECAUTIONS.
--- NOTE | 2018-03-04 19:30 | NUR ---
RESUMING PATIENT CARE. PATIENT IS ALERT AND ORIENTED. RESPIRATIONS ARE EVEN AND UNLABORED. NO S/S OF DISTRESS. NO C/O PAIN. CALL LIGHT WITHIN REACH. WILL CPOC.
[2018-03-04 20:40] VITALS: BP 169/69
[2018-03-05 00:56] VITALS: BP 110/45
[2018-03-05 06:09] VITALS: BP 137/68
[2018-03-05 06:18] LABS: BASOPHILS 0.7 % (0-2); EOSINOPHILS 1.5 % (0-7); HEMATOCRIT 28.5 % (42.0-54.0); HEMOGLOBIN 8.8 g/dL (13.5-17.5); IMMATURE GRANULOCYTES 0.2 % (0-5); LYMPHOCYTES 8.2 % (15-50); MCH 31.4 pg (26.0-34.0); MCHC 30.9 g/dL (31.0-37.0); MCV 101.8 fL (80.0-100.0); MEAN PLATELET VOLUME 10.4 fL (7.4-10.4); MONOCYTES 7.9 % (2-11); NEUTROPHILS 81.5 % (40-80); PLATELET COUNT 179 10x3/uL (130-400); RDW 21.2 % (11.5-14.5); WBC 5.4 10x3/uL (4.8-10.8)
[2018-03-05 06:34] LABS: ALBUMIN 2.9 g/dL (3.4-5.0); ANION GAP 20.2 mmol/L (8-16); BILIRUBIN - TOTAL 1.14 mg/dL (0.2-1.3); CALCIUM 8.7 mg/dL (8.5-10.1); CARBON DIOXIDE 21.8 mmol/L (21.0-32.0); CREATININE - SERUM 3.6 mg/dL (0.6-1.3)
--- NOTE | 2018-03-05 07:39 | NUR ---
RECEIVED A/A/OX4. DENIES ANY PAIN OR DISCOMFORT AND NO REQUESTS VOICED. SITTING UP IN BED READING NEWSPAPER. AT BEDSIDE. BED IN LOWEST POSITION WITH SIDERAILS UP X 2. CALL LIGHT IN REACH.
[2018-03-05 08:06] VITALS: BP 141/54
--- NOTE | 2018-03-05 10:18 | NUR ---
AT BS. CALL LIGHT IN REACH. WILL MONITOR NEEDS.
[2018-03-05 11:22] VITALS: BP 144/55
--- NOTE | 2018-03-05 18:14 | MORECARE ---
CASE MANAGEMENT DISCHARGE SUMMARY PATIENT: OSMAN RIBEIRO KAILYN UNIT: [id number] ADM DATE: 03/03/18 AGE: 72 : 43 SEX: M ROOM/BED: D.2132 AUTHOR: CHRISTIANO FLANAGAN PHYSICIAN: REFERRING PHYSICIAN: LUCINDA MENDOZA MD DATE OF SERVICE: 03/05/18 Discharge Plan Patient Name: [facility]SMAN [facility] [facility] 1945 Planned Disposition: Home Anticipated Discharge Date: 03/06/18 Discharge Date: Expected LOS: 3 Initial Reviewer: [email or web address] Initial Review Date: 03/05/2018 Generated: 03/05/18 7:14 pm DCPIA - Discharge Planning Initial Assessment Updated by [email or web address]: Maria Elena Hatfield on 03/05/18 6:11 pm * Is the patient Alert and Oriented? Yes * How many steps to enter\exit or inside your home? * PCP DR. MANDEL * Pharmacy [facility] * Preadmission Environment Home with Family * ADLs Independent * Equipment Cane CPAP Crutch Glucometer Walker * List name and contact numbers for known caregivers / representatives who currently or will assist patient after discharge: INDER RIBEIRO () [phone] * Verbal permission to speak to the caregivers and representatives has been obtained from the patient. Yes * Community resources currently utilized None * Additional services required to return to the preadmission environment? Yes * Can the patient safely return to the preadmission environment? Yes * Has this patient been hospitalized within the prior 30 days at any hospital? No Patient Name: OSMAN RIBEIRO Page [id number] at 1814 All edits/amendments must be made on the electronic document DICTATION DATE: 03/05/181813 SIGN LETTERER: DONAVAN 03/05/181813 RPT#: [id number] DC DATE: STATUS: ADM IN [facility] [address] [place] [address] END OF REPORT
--- NOTE | 2018-03-05 18:22 | MORECARE ---
CASE MANAGEMENT DISCHARGE SUMMARY PATIENT: OSMAN RIBEIRO UNIT: [id number] ADM DATE: 03/03/18 AGE: 72 : 43 SEX: M ROOM/BED: D.2132 AUTHOR: CHRISTIANO FLANAGAN PHYSICIAN: REFERRING PHYSICIAN: LUCINDA MENDOZA MD DATE OF SERVICE: 03/05/18 Discharge Plan Patient Name: OSMAN RIBEIRO Facility: [facility]:[place] : 1945 Planned Disposition: Home Anticipated Discharge Date: 03/06/18 Discharge Date: Expected LOS: 3 Initial Reviewer: [email or web address] Initial Review Date: 03/05/2018 Generated: 03/05/18 7:22 pm Comments DCP- Discharge Planning Updated by [email or web address]: Maria Elena Hatfield on 03/05/18 5:[address] Patient Name: OSMAN RIBEIRO Admission Status: Elective Accout number: [id number] Admission Date: 03-03-2018 : 1945 Admission Diagnosis: Attending: LUCINDA MENDOZA Current LOS: 2 Anticipated DC Date: 03-06-2018 Planned Disposition: Home Primary Insurance: MEDICARE A & B Discharge Planning Comments: CM MET WITH PATIENT AND (INDER) REGARDING D/C NEEDS AND PLANS. PATIENT STATED THERE ARE 3 STEPS TO ENTER HOME AND NO STAIRS INSIDE. PATIENT IS INDEPENDENT WITH HIS CARE AND HAS A WALKER, CRUTCHES, CANE, CPAP, AND GLUCOMETER AT HOME. PATIENT STATED HIS PCP IS DR. MANDEL AND USES [facility] [employer]. PATIENT STATED HIS DRIVES HIM ON MWF TO DIALYSIS. PATIENT REFUSED HOME HEALTH. CM WILL CONTINUE TO FOLLOW PATIENT WITH D/C NEEDS AND PLANS. PCP DR. MANDEL [facility] [employer] [facility] () [phone] Fruit Worker: Maria Elena Hatfield DCPIA - Discharge Planning Initial Assessment Updated by [email or web address]: Maria Elena Hatfield on 03/05/18 6:11 pm * Is the patient Alert and Oriented? Yes * How many steps to enter\exit or inside your home? * PCP DR. MANDEL * [facility]acy [facility] [employer] * Preadmission Environment Home with Family * ADLs Independent * Equipment Cane CPAP Crutch Glucometer Walker * List name and contact numbers for known caregivers / representatives who currently or will assist patient after discharge: INDER RIBEIRO () [phone] * Verbal permission to speak to the caregivers and representatives has been obtained from the patient. Yes * Community resources currently utilized None * Additional services required to return to the preadmission environment? Yes * Can the patient safely return to the preadmission environment? Yes * Has this patient been hospitalized within the prior 30 days at any hospital? No Coverage Notice Reviewer: [id number] Chuckie Hatfield Notice Issued Date-Time: 03/05/2018 17:43 Notice Type: IM Discharge Notice Notice Delivered To: Family Member Relationship to Patient: Spouse Human Resources Hr Representative Name: INDER RIBEIRO Delivery Method: HAND - Hand Delivered Yen Days: Prior Verbal Notification: Recipient Understood Notice: Yes Recipient Signature: Yes Med Rec Note Co-signed by Attending: Coverage Notice Comment: Last DP export: 03/05/18 5:14 pm Patient Name: OSMAN RIBEIRO Page [phone] at 1822 All edits/amendments must be made on the electronic document DICTATION DATE: 03/05/181820 MANAGER BANQUET: DONAVAN 03/05/181820 RPT#: [id number] DC DATE: STATUS: ADM IN [facility] [address] [place] [address] END OF REPORT
--- NOTE | 2018-03-05 20:02 | NUR ---
RESUMING PATIENT CARE. PATIENT IS ALERT AND ORIENTED. PATIENT IS RESTING COMFORTABLY IN BED. IV INFILTRATED ON AM SHIFT. IV NEEDS TO BE RESTARTED. IV IRON WAITING TO INFUSE. PATIENT VERBALIZED NO NEEDS AT THIS TIME. CALL LIGHT WITHIN REACH. WILL CPOC.
--- NOTE | 2018-03-05 20:10 | NUR ---
NEW IV STARTED IN LEFT FOREARM
[2018-03-05 21:07] VITALS: BP 137/62
[2018-03-06 01:12] VITALS: BP 120/56
[2018-03-06 06:11] VITALS: BP 116/47
[2018-03-06 06:48] LABS: ALBUMIN 2.6 g/dL (3.4-5.0); ANION GAP 18.4 mmol/L (8-16); BILIRUBIN - TOTAL 0.89 mg/dL (0.2-1.3); CALCIUM 8.2 mg/dL (8.5-10.1); CARBON DIOXIDE 22.8 mmol/L (21.0-32.0); CREATININE - SERUM 2.9 mg/dL (0.6-1.3); PROTEIN - SERUM 5.5 g/dL (6.4-8.2)
[2018-03-06 06:50] LABS: POTASSIUM - SERUM 3.2 mmol/L (3.5-5.1)
[2018-03-06 07:39] LABS: HEMOGLOBIN 8.7 g/dL (13.5-17.5); LYMPHOCYTES 9.7 % (15-50); MCH 32.3 pg (26.0-34.0); MCHC 32.2 g/dL (31.0-37.0); MCV 100.4 fL (80.0-100.0); MEAN PLATELET VOLUME 9.9 fL (7.4-10.4); NEUTROPHILS 80.2 % (40-80); RBC 2.69 10x6/uL (4.20-6.10); RDW 19.9 % (11.5-14.5)
[2018-03-06 07:42] LABS: PLATELET COUNT 132 10x3/uL (130-400)
[2018-03-06 07:49] VITALS: BP 115/48
[2018-03-06] MEDS ORDERED: PROTONIX40 MG PO (08:47)
[2018-03-06] MEDS ORDERED: CARAFATE1 G/10 ML PO (08:48)
--- NOTE | 2018-03-06 10:59 | NUR ---
DISCHARGE INSTRUCTIONS GIVEN TO PT ALL QUESTIONS ANSWERED. LEFT FA IV DC'D WITH CATH INTACT. CHART COPY SIGNED.
--- NOTE | 2018-03-06 11:15 | NUR ---
PT TAKEN DOWN VIA WC BY VOLUNTEER. ACCOMPANIED BY .
--- NOTE | 2018-03-07 10:36 | MORECARE ---
CASE MANAGEMENT DISCHARGE SUMMARY PATIENT: OSMAN RIBEIRO UNIT: [id number] ADM DATE: 03/03/18 AGE: 72 : 43 SEX: M ROOM/BED: D.2132 AUTHOR: CHRISTIANO FLANAGAN PHYSICIAN: REFERRING PHYSICIAN: LUCINDA MENDOZA MD DATE OF SERVICE: 03/07/18 Discharge Plan Patient Name: OSMAN RIBEIRO Facility: [facility]:[place] : 1945 Planned Disposition: Home Anticipated Discharge Date: 03/06/18 Discharge Date: 03/06/2018 Expected LOS: 3 Initial Reviewer: [email or web address] Initial Review Date: 03/05/2018 Generated: 03/07/18 11:36 am Comments DCP- Discharge Planning Updated by [id number]: Maria Elena Hatfield on 03/05/18 5:[address] Patient Name: OSMAN RIBEIRO Admission Status: Elective Accout number: [id number] Admission Date: 03-03-2018 : 1945 Admission Diagnosis: Attending: LUCINDA MENDOZA Current LOS: 2 Anticipated DC Date: 03-06-2018 Planned Disposition: Home Primary Insurance: MEDICARE A & B Discharge Planning Comments: CM MET WITH PATIENT AND (INDER) REGARDING D/C NEEDS AND PLANS. PATIENT STATED THERE ARE 3 STEPS TO ENTER HOME AND NO STAIRS INSIDE. PATIENT IS INDEPENDENT WITH HIS CARE AND HAS A WALKER, CRUTCHES, CANE, CPAP, AND GLUCOMETER AT HOME. PATIENT STATED HIS PCP IS DR. MANDEL AND USES [facility] [employer]. PATIENT STATED HIS DRIVES HIM ON MWF TO DIALYSIS. PATIENT REFUSED HOME HEALTH. CM WILL CONTINUE TO FOLLOW PATIENT WITH D/C NEEDS AND PLANS. PCP DR. MANDEL [facility] [employer] [facility] () [phone] Pump Tester: Maria Elena Hatfield DCPIA - Discharge Planning Initial Assessment Updated by [email or web address]: Maria Elena Hatfield on 03/05/18 6:11 pm * Is the patient Alert and Oriented? Yes * How many steps to enter\exit or inside your home? * PCP DR. MANDEL * Pharmacy [facility] * Preadmission Environment Home with Family * ADLs Independent * Equipment Cane CPAP Crutch Glucometer Walker * List name and contact numbers for known caregivers / representatives who currently or will assist patient after discharge: INDER RIBEIRO () [phone] * Verbal permission to speak to the caregivers and representatives has been obtained from the patient. Yes * Community resources currently utilized None * Additional services required to return to the preadmission environment? Yes * Can the patient safely return to the preadmission environment? Yes * Has this patient been hospitalized within the prior 30 days at any hospital? No Coverage Notice Reviewer: [email or web address] Chuckie Hatfield Notice Issued Date-Time: 03/05/2018 17:43 Notice Type: IM Discharge Notice Notice Delivered To: Family Member Relationship to Patient: Spouse Race Relations Professor Name: INDER RIBEIRO Delivery Method: HAND - Hand Delivered Yen Days: Prior Verbal Notification: Recipient Understood Notice: Yes Recipient Signature: Yes Med Rec Note Co-signed by Attending: Coverage Notice Comment: Last DP export: 03/05/18 5:22 pm Patient Name: OSMAN RIBEIRO Page [phone] at 1036 All edits/amendments must be made on the electronic document DICTATION DATE: 03/07/18 1036 MASTER POLICE DETECTIVE: DONAVAN 03/07/18 1036 RPT#: [id number] DC DATE:03/06/18 STATUS: DIS IN [facility] [address] [place] [address] END OF REPORT
== END 2018-03-06 11:15 | disposition home or self-care (01) | DRG 377 ==
LOC: D.M2 13:29 → D.SDCHOLD 13:29 → D.M2 13:43
PROVIDERS: Internal Medicine; Internal Medicine Gastroenterology; ADMIT Internal Medicine Nephrology
PROC: 0DB68ZX Excision of Stomach, Via Natural or Artificial Opening Endoscopic, Diagnostic (ICD-10-PCS; principal; 2018-03-04 13:30)
DX: K25.4 Chronic or unspecified gastric ulcer with hemorrhage (principal); N18.6 End stage renal disease; D62 Acute posthemorrhagic anemia; I12.0 Hypertensive chronic kidney disease with stage 5 chronic kidney disease or end stage renal disease; K44.9 Diaphragmatic hernia without obstruction or gangrene; D50.9 Iron deficiency anemia, unspecified; K21.0 Gastro-esophageal reflux disease with esophagitis; E11.22 Type 2 diabetes mellitus with diabetic chronic kidney disease; E11.51 Type 2 diabetes mellitus with diabetic peripheral angiopathy without gangrene; I25.10 Atherosclerotic heart disease of native coronary artery without angina pectoris

== ENCOUNTER 2018-05-05 05:37 | Day surgery (SDC) | payer MEDICARE, OTHER ==
[~2018-05-05] VITALS: Ht 180.3 cm; Wt 95.5 kg
[~2018-05-05 05:37] MED LIST changes: +CARAFATE1 G/10 ML PO; +COLACE100 MG PO; +PROTONIX40 MG PO; +RENA-VITE TABL0.8 MG PO; +RESTORIL15 MG PO; +TUMS X-STR300 MG PO
[2018-05-05 06:26] LABS: ANION GAP 18.5 mmol/L (8-16); CALCIUM 8.8 mg/dL (8.5-10.1); CARBON DIOXIDE 25.2 mmol/L (21.0-32.0); CREATININE - SERUM 3.4 mg/dL (0.6-1.3); POTASSIUM - SERUM 3.7 mmol/L (3.5-5.1)
[2018-05-05 06:33] VITALS: BP 167/71; Ht 180.3 cm; Wt 95.5 kg
[2018-05-05 06:35] LABS: BASOPHILS 0.5 % (0-2); EOSINOPHILS 1.6 % (0-7); HEMATOCRIT 40.1 % (42.0-54.0); HEMOGLOBIN 12.5 g/dL (13.5-17.5); IMMATURE GRANULOCYTES 0.2 % (0-5); LYMPHOCYTES 10.7 % (15-50); MCH 28.3 pg (26.0-34.0); MCHC 31.2 g/dL (31.0-37.0); MCV 90.7 fL (80.0-100.0); MEAN PLATELET VOLUME 10.6 fL (7.4-10.4); MONOCYTES 7.8 % (2-11); NEUTROPHILS 79.2 % (40-80); RBC 4.42 10x6/uL (4.20-6.10); RDW 16.1 % (11.5-14.5); WBC 5.5 10x3/uL (4.8-10.8)
[2018-05-05] MEDS ORDERED: RENA-VITE TABL0.8 MG PO (06:40)
[2018-05-05] MEDS ORDERED: ZYRTEC10 MG PO (06:40)
[2018-05-05 07:00] LABS: PLATELET COUNT 167 10x3/uL (130-400)
--- NOTE | 2018-05-05 08:37 | NUR ---
DC ISNTRUCTIONS GIVEN TO PT/FAMILY. STATE UNDERSTANDING. DC'D IV CATH FULLY INTACT.
--- NOTE | 2018-05-05 08:41 | NUR ---
PT LEFT UNIT VIA AT 0811
--- NOTE | 2018-05-06 12:17 | OP ---
PATIENT NAME: OSMAN RIBEIRO MEDICAL RECORD: [id number] :[birth year] [facility] DATE: SURGEON: DOMINIQUE ALANIZ DO DATE OF OPERATION: 05/05/2018 PROCEDURE: EGD with biopsies. INDICATIONS FOR PROCEDURE: Anemia and history of gastric ulcers secondary to Helicobacter pylori infection. SCOPE: Olympus video gastroscope. MEDICATIONS: Propofol 160 mg IV per anesthesia. ESTIMATED BLOOD LOSS: Minimal. COMPLICATIONS: None. FINDINGS: Informed consent was given. The patient was made comfortable with the above medication. After reaching an adequate level of sedation by slow IV push, the patient was placed on his left side. The endoscope was advanced under direct visualization through the mouth to the second portion of the duodenum. Entire esophagus appeared normal. 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 Cold forceps, biopsies were taken to submit for histopathology. The endoscope was advanced beyond the GE junction into the stomach and retroflexed to view the cardia, where a small sliding hiatal hernia was present. In the fundus and body of the stomach, there was a small to moderate amount of food retention. In the antrum, there was erythema and granularity consistent with gastritis. Cold forceps biopsies were taken to submit for histopathology and to rule out the continued presence of H. pylori status post treatment. The endoscope was advanced beyond the pylorus into the duodenum, which appeared normal down to the second portion. The endoscope was then withdrawn from the patient. The patient tolerated the procedure well and there were no complications. IMPRESSION: 1. LA class B reflux-induced esophagitis. 2. Small sliding hiatal hernia. 3. Gastritis. 4. Food retention. PLAN AND RECOMMENDATIONS: 1. Discharge home when recovery parameters are met. 2. Follow up biopsy specimen results. 3. GERD diet and reflux precautions. 4. Continue current medications. 5. Follow up in GI clinic as needed. 6. Regarding the food retention visualized today, notify clinic of symptoms of pain with eating, early satiety, abdominal distention, and nausea as this could be gastroparesis. At this time, the patient is asymptomatic and this will not be worked up further. TRANSINT:[id number] Voice Confirmation ID: [id number] DOCUMENT ID: [id number] OPERATIVE REPORT [id number] OSMAN RIBEIRO DOMINIQUE ALANIZ DO at 1217 CC: [id number] DICTATION DATE: 05/05/18 0808 SAP BI ARCHITECT: 05/05/18 1058 [facility] 05/05/18 [address] [place] [address]
== END 2018-05-05 08:47 | disposition home or self-care (01) ==
LOC: D.OPS
PROVIDERS: Anesthesiology; ATTEND Internal Medicine Gastroenterology
DX: K21.0 Gastro-esophageal reflux disease with esophagitis (principal); K44.9 Diaphragmatic hernia without obstruction or gangrene; K29.50 Unspecified chronic gastritis without bleeding; Z18.9 Retained foreign body fragments, unspecified material; Z01.812 Encounter for preprocedural laboratory examination

== ENCOUNTER 2018-05-19 05:47 | Day surgery (SDC) | payer MEDICARE, OTHER ==
[~2018-05-19] VITALS: Ht 180.3 cm; Wt 93.6 kg
--- NOTE | ~2018-05-19 | OP ---
PATIENT NAME: OSMAN RIBEIRO MEDICAL RECORD: [id number] :[birth year] LOCATION:[facility] ADMISSION DATE: SURGEON: DOMINIQUE ALANIZ DO DATE OF OPERATION: 05/19/2018 PROCEDURE: Colonoscopy with polypectomy. INDICATIONS FOR PROCEDURE: Screening for colorectal cancer. SCOPE: Olympus video pediatric colonoscope. MEDICATIONS: Propofol 650 mg IV per anesthesia. WITHDRAWAL TIME: 30 minutes. ESTIMATED BLOOD LOSS: Minimal. COMPLICATIONS: None. FINDINGS: Informed consent was given. The patient was made comfortable with the above medication. After reaching an adequate level of sedation by slow IV push, the patient was placed on his left side. A digital rectal exam was performed and revealed some prostate enlargement. The endoscope was advanced under direct visualization through the rectum to the anastomosis in the right side of the colon. The endoscope was advanced into the small intestine, which appeared normal as far as could be seen. The endoscope was slowly withdrawn. Mucosa was carefully examined. The prep quality was fair. There were multiple polyps visualized on today's examination. The first was a benign appearing sessile polyp, which measured approximately 5 mm in size located in the ascending colon. It was removed by using hot snare. In the transverse colon, there were four separate polyps, which ranged in size from 4 mm to 9 mm in diameter. These were all removed using hot snare. One of the polyp sites were endoclipped times 1 for tissue positioning. In the descending colon, there were 5 separate polyps, which ranged in size from 4 mm to 1.2 cm. They were all removed using a hot snare. The largest polyp site was endoclipped for tissue positioning. In the sigmoid colon, there was a sessile polyp, which measured approximately 8 mm in diameter. It was removed using a hot snare. There was evidence of moderate diverticulosis involving the descending and sigmoid colon. Retroflexion was performed in the rectum with visualization of grade II internal hemorrhoids. The endoscope was withdrawn from the patient. The patient tolerated the procedure well and there were no complications. IMPRESSION: 1. Multiple polyps as described above, removed using a hot snare with endoclips times 2. 2. Moderate diverticulosis of the left side of the colon. 3. Previous surgery with anastomosis in the right side of the colon. 4. Grade II internal hemorrhoids without bleeding. PLAN AND RECOMMENDATIONS: 1. Discharge home when recovery parameters are met. 2. Follow up biopsy specimen results. 3. High fiber diet. 4. Continue current medications. 5. Recall colonoscopy in 1 year for a repeat based on the number and size of OPERATIVE REPORT [id number] OSMAN RIBEIRO polyps removed on today's examination. TRANSINT:[id number] Voice Confirmation ID: [id number] DOCUMENT ID: [id number] DOMINIQUE ALANIZ DO CC: [id number] DICTATION DATE: 05/19/18923 GLASS ETCHER: 05/19/1856 [address] [place] [address]
[~2018-05-19 05:47] MED LIST changes: +ZYRTEC10 MG PO
[2018-05-19 06:55] LABS: HEMATOCRIT 37.7 % (42.0-54.0); MCH 27.7 pg (26.0-34.0); MCHC 31.8 g/dL (31.0-37.0); MCV 87.1 fL (80.0-100.0); MEAN PLATELET VOLUME 10.2 fL (7.4-10.4); RBC 4.33 10x6/uL (4.20-6.10); RDW 15.8 % (11.5-14.5); WBC 4.2 10x3/uL (4.8-10.8)
[2018-05-19 07:07] LABS: ANION GAP 14.9 mmol/L (8-16); CALCIUM 8.9 mg/dL (8.5-10.1); CARBON DIOXIDE 26.3 mmol/L (21.0-32.0); CREATININE - SERUM 2.9 mg/dL (0.6-1.3); POTASSIUM - SERUM 3.2 mmol/L (3.5-5.1)
[2018-05-19 07:14] VITALS: BP 142/65; Ht 180.3 cm; Wt 93.6 kg
== END 2018-05-19 10:35 | disposition home or self-care (01) ==
LOC: D.OPS
PROVIDERS: Anesthesiology; ATTEND Internal Medicine Gastroenterology
DX: Z12.11 Encounter for screening for malignant neoplasm of colon (principal); D12.4 Benign neoplasm of descending colon; D12.5 Benign neoplasm of sigmoid colon; K63.5 Polyp of colon; K57.30 Diverticulosis of large intestine without perforation or abscess without bleeding; K64.1 Second degree hemorrhoids; Z01.812 Encounter for preprocedural laboratory examination

== ENCOUNTER → 2018-07-01 09:26 | Outpatient (CLI) | payer MEDICARE, OTHER ==
[2018-05-19 07:14] VITALS: BMI 28.8
== END | disposition home or self-care (01) ==
LOC: D.US 09:26
PROVIDERS: ATTEND Internal Medicine Cardiovascular Disease
DX: I65.23 Occlusion and stenosis of bilateral carotid arteries (principal)

== ENCOUNTER → 2018-07-22 12:25 | Outpatient (CLI) | payer MEDICARE, OTHER ==
[2018-05-19 07:14] VITALS: BMI 28.8
== END | disposition home or self-care (01) ==
LOC: D.CT 12:25
PROVIDERS: ATTEND Internal Medicine Cardiovascular Disease
DX: L97.909 Non-pressure chronic ulcer of unspecified part of unspecified lower leg with unspecified severity (principal)

== ENCOUNTER 2018-08-24 14:36 | Inpatient (IN) | payer MEDICARE, OTHER ==
[~2018-08-24] VITALS: Ht 180.3 cm; Wt 92.1 kg
[2018-08-24 15:06] LABS: BASOPHILS 0.1 % (0-2); EOSINOPHILS 0 % (0-7); HEMOGLOBIN 11.3 g/dL (13.5-17.5); IMMATURE GRANULOCYTES 0.2 % (0-5); LYMPHOCYTES 2.7 % (15-50); MCH 27.4 pg (26.0-34.0); MCHC 33.2 g/dL (31.0-37.0); MCV 82.3 fL (80.0-100.0); MEAN PLATELET VOLUME 10.2 fL (7.4-10.4); MONOCYTES 4.7 % (2-11); NEUTROPHILS 92.3 % (40-80); PLATELET COUNT 145 10x3/uL (130-400); RBC 4.13 10x6/uL (4.20-6.10); RDW 15.7 % (11.5-14.5); WBC 12.5 10x3/uL (4.8-10.8)
[2018-08-24 15:32] LABS: ALBUMIN 2.8 g/dL (3.4-5.0); ANION GAP 18.6 mmol/L (8-16); BILIRUBIN - TOTAL 1.92 mg/dL (0.2-1.3); CALCIUM 8.4 mg/dL (8.5-10.1); CARBON DIOXIDE 21.1 mmol/L (21.0-32.0); CREATININE - SERUM 4.1 mg/dL (0.6-1.3); POTASSIUM - SERUM 3.7 mmol/L (3.5-5.1); PROTEIN - SERUM 5.6 g/dL (6.4-8.2)
[2018-08-24 15:37] LABS: APPEARANCE CLEAR (CLEAR); BILIRUBIN NEGATIVE (NEGATIVE); COLOR YELLOW (YELLOW); GLUCOSE NEGATIVE (NEGATIVE); KETONE NEGATIVE (NEGATIVE); NITRITE NEGATIVE (NEGATIVE); PROTEIN 1+ mg/dL (NEGATIVE); SPECIFIC GRAVITY 1.015 (1.005-1.020); UROBILINOGEN NORMAL (NORMAL)
[2018-08-24 15:40] LABS: RED CELLS - URINE 0-5 /hpf (0-5); WHITE CELLS - URINE OCC /hpf (0-5)
[2018-08-24 15:41] LABS: AMORPHOUS SEDIMENT >1+ /lpf (NONE SEEN); BACTERIA FEW /hpf (NONE SEEN)
--- NOTE | 2018-08-24 16:54 | NUR ---
SKIN TEAR TO ELBOW, STERI STRIPS PLACED, WRAP WITH NON ADHESIVE DRESSING THEN KERLEX SECURED WITH TAPE.
[2018-08-24 16:56] VITALS: BP 136/62
--- NOTE | 2018-08-24 17:39 | NUR ---
PT ARRIVED VIA BED, AT SIDE. A/OX4, WEAK, VERY PLESANT. NO COMPLAINTS/CONCERNS, EATING SUPPER. CL IN REACH, SRX2.
[2018-08-24] MEDS ORDERED: RENA-VITE TABL0.8 MG PO (17:46)
[2018-08-24] MEDS ORDERED: KLONOPIN1 MG PO (17:47)
--- NOTE | 2018-08-24 17:53 | NUR ---
ASSISTED WITH ADMISSION ON THIS PATIENT.
--- NOTE | 2018-08-24 18:15 | NUR ---
PT HAS SEVERAL WOUNDS. DIABETIC ULCER ON RIGHT FOOT DRESSD WITH GAUZE AND KERLEX, C/D/I. SKIN TEAR RIGHT ELBOW, DRESSED WITH STERI STRIPS/GAUZE/KERLEX FROM ER, C/D/I. LEFT ELBOW SKIN TEAR, DRESSED WITH GAUZE/KERLEX, C/D/I. NO COMPLAINTS/CONCERNS/COMMENTS/QUESTIONS AT THIS TIME. CL IN REACH, SRX2.
[2018-08-24 18:30] VITALS: BP 130/63; BMI 32.5
--- NOTE | 2018-08-24 18:43 | NUR ---
ASSESSMENT COMPLETE RESP UNLABORED PT DENIES ANY NAUSEA OR PAIN AT THIS TIME SALINE LOCK INTACT TO LAC SITE FREE OF REDNESS OR EDEMA RT ARM RESERVED FOR AVF +THRILL +BRUIT NAD NOTED ATH TIS TIME
--- NOTE | 2018-08-24 19:42 | NUR ---
INITIAL ROUNDS COMPLETED AT 1915 HRS. PT RESTING WITH EYES CLOSED. RESP EVEN AND REGULAR. SR UP X2, CALL LIGHT WITHIN REACH AND BED ALARM ON.
[2018-08-24 20:15] VITALS: BP 120/64
--- NOTE | 2018-08-24 21:44 | NUR ---
ASSESSMENT COMPLETED AT 2004 HRS. VSS. PT OPENS EYES TO VERBAL STIMULI, FOLLOWS COMMANDS ANDIS ORIENTED TO PERSON,PLACE AND TIME. PT QUICKLY FALLS BACK TO SLEEP AFTER INTERACTION. CM DENOTES PACED RHYTHM HR 62. LUNGS DIMINISHED IN BASES BILAT. IV TOLAC WITH VANC INFUSING. RAVF WITH GOOD BRUIT AND THRILL. DRESSINGS TO BILAT ELBOWS AND R FOOT/HEEL CLEAN, DRY AND INTACT. PM FSBS 323. 8 UNITS REG INSULIN GIVEN SUB-Q TO UPPER L ARM. PM MEDS GIVEN. PT CURRENTLY RESTING WITH EYES CLOSED. RESP EVEN AND REGULAR. SR UP X2, CALL LIGHT WITHIN REACH AND BED ALARM ON.
--- NOTE | 2018-08-25 00:20 | NUR ---
PT AWAKE; DENIES ANY DISCOMFORT OR NEEDS. SR UP X2, CALL LIGHT WITHIN REACH AND BED ALARM ON.
[2018-08-25 00:33] VITALS: BP 124/79
--- NOTE | 2018-08-25 02:12 | NUR ---
PT RESTING WITH EYES CLOSED. RESP EVEN AND REGULAR. SR UP X2, CALL LIGHT WITHIN REACH AND BED ALARM ON.
[2018-08-25 03:45] VITALS: BP 124/47
--- NOTE | 2018-08-25 05:01 | NUR ---
ASSISTED PT BACK FROM BR. PT DID NOT USE URINAL. STATED HE VOIDED ONLY. SR UP X2, CALL LIGHT WITHIN REACH AND BED ALARM ON.
[2018-08-25 05:54] LABS: BASOPHILS 0 % (0-2); EOSINOPHILS 0.5 % (0-7); HEMATOCRIT 32.5 % (42.0-54.0); HEMOGLOBIN 10.7 g/dL (13.5-17.5); IMMATURE GRANULOCYTES 0.3 % (0-5); LYMPHOCYTES 6.1 % (15-50); MCH 26.8 pg (26.0-34.0); MCHC 32.9 g/dL (31.0-37.0); MCV 81.3 fL (80.0-100.0); MEAN PLATELET VOLUME 10.3 fL (7.4-10.4); MONOCYTES 8.1 % (2-11); PLATELET COUNT 152 10x3/uL (130-400); RDW 15.8 % (11.5-14.5)
[2018-08-25 05:58] LABS: WBC 7.8 10x3/uL (4.8-10.8)
[2018-08-25 06:24] LABS: ALBUMIN 2.5 g/dL (3.4-5.0); ANION GAP 18.1 mmol/L (8-16); BILIRUBIN - TOTAL 1.47 mg/dL (0.2-1.3); CARBON DIOXIDE 21.2 mmol/L (21.0-32.0); CREATININE - SERUM 4.3 mg/dL (0.6-1.3); POTASSIUM - SERUM 3.3 mmol/L (3.5-5.1); PROTEIN - SERUM 5.8 g/dL (6.4-8.2); VANCOMYCIN - RANDOM 13.7 ug/mL (10.0-20.0)
--- NOTE | 2018-08-25 06:40 | NUR ---
AM FSBS 74. NO COVERAGE NEEDED. VSS THROUGHOUT NIGHT. PACED RHTYHM PER CM. PT DENIED ANY DISCOMFORT. NEEDS MET;WILL CONTINUE TO MONITOR.
--- NOTE | 2018-08-25 06:59 | NUR ---
INITIAL ROUNDING, THE PATIENT IS AWAKE AND RESTING IN BED, SEMI FOWELERS, WATCHING TV. CALL LIGHT IN HIS HAND. ON ROOM AIR, DRESSINGS TO BILAT ELBOWS, AND RIGHT FOOT, ALL IN TACT. INTRODUCTIONS MADE, WHITE BOARD UPDATED
[2018-08-25 07:25] VITALS: BP 126/54
[2018-08-25 09:06] VITALS: Ht 180.3 cm; Wt 92.1 kg
[2018-08-25 11:38] VITALS: BP 122/59
--- NOTE | 2018-08-25 14:18 | MORECARE ---
CASE MANAGEMENT DISCHARGE SUMMARY PATIENT: OSMAN RIBEIRO UNIT: [id number] ADM DATE: 08/24/18 AGE: 73 : 43 SEX: M ROOM/BED: D.4379 AUTHOR: MASHADOC PHYSICIAN: REFERRING PHYSICIAN: COMPA NAQVI MD DATE OF SERVICE: 08/25/18 Discharge Plan Patient Name: OSMAN RIBEIRO Facility: [facility]:[place] : 1945 Planned Disposition: Home Anticipated Discharge Date: Discharge Date: Expected LOS: Initial Reviewer: [email or web address] Initial Review Date: 08/25/2018 Generated: 08/25/18 3:18 pm Comments DCP- Discharge Planning Updated by [email or web address]: Sue Werner on 08/25/18 1:[address] Patient Name: OSMAN RIBEIRO Admission Status: ER Accout number: [id number] Admission Date: 08-24-2018 : 1945 Admission Diagnosis: Attending: COMPA NAQVI Current LOS: 1 Anticipated DC Date: Planned Disposition: Home Primary Insurance: MEDICARE A & B Discharge Planning Comments: CM met with patient to complete initial dc planning assessment. CM educated patient on the CM role and verbal consent given by patient to complete assessment. CM verified patient's address, phone number, and emergency contact phone numbers. Patient lives at home WITH and reports he is independent in his care. At discharge patient plans to return home and feels this is a safe discharge. CM discussed availability of home health, rehab services, and medical equipment. Patient denied known discharge needs at this time.. PT HAS HD MWF AT [facility] . CM will continue to follow and will assist as needed with dc plans/needs. Freight Broker: Sue Werner DCPIA - Discharge Planning Initial Assessment Updated by [email or web address]: Sue Werner on 08/25/18 2:12 pm * Is the patient Alert and Oriented? Yes * How many steps to enter\exit or inside your home? * PCP EZ * Pharmacy [facility] [address] * Preadmission Environment Home with Family * ADLs Independent * Equipment CPAP * Other Equipment CANE AND WALKER * List name and contact numbers for known caregivers / representatives who currently or will assist patient after discharge: SPOUSE INDER [phone] * Verbal permission to speak to the caregivers and representatives has been obtained from the patient. Yes * Additional services required to return to the preadmission environment? No * Can the patient safely return to the preadmission environment? Yes * Has this patient been hospitalized within the prior 30 days at any hospital? No Patient Name: OSMAN RIBEIRO Page 19548 at 1418 All edits/amendments must be made on the electronic document DICTATION DATE: 08/25/181417 HR OPERATIONS ADVISOR: DONAVAN 08/25/181417 RPT#: [id number] DC DATE: STATUS: ADM IN [facility] [address] [place] [address] END OF REPORT
--- NOTE | 2018-08-25 14:37 | NUR ---
PATIENT IS RESTING WITH EYES CLOSED, CALL LIGHT IN HIS HAND, LIGHT TURNED OFF AT THIS TIME. ALONE IN THE ROOM AT THIS TIME.
[2018-08-25 15:41] VITALS: BP 129/64
--- NOTE | 2018-08-25 19:30 | NUR ---
PATIENT LAYING IN BED. PATIENT HAS NO COMPLAINTS AT THIS TIME. FAMILY AT BEDSIDE. NO DISTRESS NOTED.
[2018-08-25 20:44] VITALS: BP 137/73
--- NOTE | 2018-08-25 21:35 | NUR ---
PATIENT TO DIAYLSIS VIA WHEELCHAIR ESCORTED BY STAFF.
--- NOTE | 2018-08-25 22:55 | NUR ---
PATIENT BACK FOM DIAYLSIS VIA WHEELCHAIR ESCORTED BY STAFF.
--- NOTE | 2018-08-25 23:08 | NUR ---
PATIENT DID NOT RECEIVE DIALYSIS. DIALYSIS NURSE REPORTS UNABLE TO GET DIALYSIS STARTED. PATIENT LAYING IN BED. PATIENT'S ONLY COMPLAINT WAS NOT BEING ABLE TO RECEIVE DIALYSIS. NO OTHER COMPLAINTS AT THIS TIME. NO DISTRESS NOTED.
[2018-08-26 00:45] VITALS: BP 125/69
[2018-08-26 06:01] LABS: BASOPHILS 0.2 % (0-2); EOSINOPHILS 1.9 % (0-7); HEMATOCRIT 33.2 % (42.0-54.0); HEMOGLOBIN 11.3 g/dL (13.5-17.5); IMMATURE GRANULOCYTES 0.4 % (0-5); LYMPHOCYTES 8.1 % (15-50); MCH 27.3 pg (26.0-34.0); MCV 80.2 fL (80.0-100.0); MEAN PLATELET VOLUME 10.4 fL (7.4-10.4); NEUTROPHILS 80.4 % (40-80); PLATELET COUNT 162 10x3/uL (130-400); RBC 4.14 10x6/uL (4.20-6.10); RDW 15.6 % (11.5-14.5)
[2018-08-26 06:07] LABS: WBC 5.3 10x3/uL (4.8-10.8)
[2018-08-26 06:28] LABS: ANION GAP 18.1 mmol/L (8-16); CALCIUM 7.9 mg/dL (8.5-10.1); CARBON DIOXIDE 21.1 mmol/L (21.0-32.0); CREATININE - SERUM 4.6 mg/dL (0.6-1.3); POTASSIUM - SERUM 3.2 mmol/L (3.5-5.1); VANCOMYCIN - RANDOM 9.3 ug/mL (10.0-20.0)
[2018-08-26 06:39] VITALS: BP 147/54
[2018-08-26 07:45] VITALS: BP 155/67
--- NOTE | 2018-08-26 07:50 | NUR ---
PATIENT IS AWAKE AND IN SEMI FOWLERS POSITONS, LIGHTS ON, CALL LIGHT IN REACH. HE REPORTS NOT GETTING DIALYSIS YESTERDAY AND IS CONCERNED BECAUSE HE MISSED SATURDAY DIALYSIS WELL. HE STATES HE IS VERY WEAK AND HAS NO ENERGY.
--- NOTE | 2018-08-26 12:00 | NUR ---
Pt has bruising on both arms and skin tears on elbows (steristrips intact). He has a history of diabetic foot ulcers and has a 1cm x 0.5cm x 0.5cm ulcer on his right plantar foot. He states he is seeing Dr. Diaz at the wound clinic every 2 weeks for this wound. On the right heel is a healed ulcer, left heel has a 1cm x 1cm x callous and left plantar a 1cm x 1cm x callous. Bilateral knees have scrapes and scabs. He has specially made diabetic shoes. Current treatment for right foot wound is silver alginate. Will recommend continuing. Wound care will monitor.
--- NOTE | 2018-08-26 13:51 | NUR ---
Rehab Note- Acute Inpatient Rehab prescreen order received. Met with the patient while in HD and discussed [facility] Acute Inpatient Rehab. He stated he is interested but wants to know what the plan will be with his lower extremities bc they are both 90% blocked & that he has a conference call w/ , IR today at 1430 & will know more after that. Will continue to follow at this time. THank you for this referral! Francia Kelley RN CLinical Liaison, [facility] Rehab
--- NOTE | 2018-08-26 16:20 | MORECARE ---
CASE MANAGEMENT DISCHARGE SUMMARY PATIENT: OSMAN RIBEIRO UNIT: [id number] ADM DATE: 08/24/18 AGE: 73 : 43 SEX: M ROOM/BED: D.2135 AUTHOR: CHRISTIANO FLANAGAN PHYSICIAN: REFERRING PHYSICIAN: COMPA NAQVI MD DATE OF SERVICE: 08/26/18 Discharge Plan Patient Name: OSMAN RIBEIRO [facility] [facility] 1945 Planned Disposition: Inpatient Rehab Anticipated Discharge Date: Discharge Date: Expected LOS: Initial Reviewer: [id number] Initial Review Date: 08/25/2018 Generated: 08/26/18 5:19 pm Comments DCP- Discharge Planning Updated by [id number]: Stephane Navarro on 08/26/18 3:[address] Patient Name: OSMAN RIBEIRO Encounter No: [id number] : 1945 Primary Insurance: MEDICARE A & B Anticipated DC Date: Planned Disposition: Inpatient Rehab External Planned Provider: [facility] INPATIENT [facility] DCP follow-up note: CM RECEIVED MESSAGE FROM PT'S SPOUSE, THEY WANT INPATIENT REHAB AT [place]. CM RECEIVED INPATIENT REHAB PRESCREENING ORDER. CM SPOKE TO PT IN ROOM, PT WILL DISCUSS THIS WITH HIS AND IS CONSIDERING REHAB AT [facility]. IMPORTANT MESSAGE FROM MEDICARE PROVIDED AND EXPLAINED. CM WAITING PRESCREEN COMPLETION AND ADMISSION DETERMINATION FROM [facility] IN[facility]. Stephane Navarro,.CASE MANAGMENT DCP- Discharge Planning Updated by [id number]: Sue Werner on 08/25/18 1:[address] Patient Name: OSMAN RIBEIRO Admission Status: ER Accout number: [id number] Admission Date: 08-24-2018 : 1945 Admission Diagnosis: Attending: COMPA NAQVI Current LOS: 1 Anticipated DC Date: Planned Disposition: Home Primary Insurance: MEDICARE A & B Discharge Planning Comments: CM met with patient to complete initial dc planning assessment. CM educated patient on the CM role and verbal consent given by patient to complete assessment. CM verified patient's address, phone number, and emergency contact phone numbers. Patient lives at home WITH and reports he is independent in his care. At discharge patient plans to return home and feels this is a safe discharge. CM discussed availability of home health, rehab services, and medical equipment. Patient denied known discharge needs at this time.. PT HAS HD MWF AT [facility] . CM will continue to follow and will assist as needed with dc plans/needs. Pantograph Ii Engraver: Sue Werner DCPIA - Discharge Planning Initial Assessment Updated by [id number]: Suelion Mittalman on 08/25/18 2:12 pm * Is the patient Alert and Oriented? Yes * How many steps to enter\exit or inside your home? * PCP EZ * Pharmacy [facility] [address] * Preadmission Environment Home with Family * ADLs Independent * Equipment CPAP * Other Equipment CANE AND WALKER * List name and contact numbers for known caregivers / representatives who currently or will assist patient after discharge: SPOUSE INDER [phone] * Verbal permission to speak to the caregivers and representatives has been obtained from the patient. Yes * Additional services required to return to the preadmission environment? No * Can the patient safely return to the preadmission environment? Yes * Has this patient been hospitalized within the prior 30 days at any hospital? No Coverage Notice Reviewer: [id number] Chuckie Navarro Notice Issued Date-Time: 08/26/2018 15:50 Notice Type: IM Discharge Notice Notice Delivered To: Patient Relationship to Patient: X Ray Developer Name: Delivery Method: HAND - Hand Delivered Yen Days: Prior Verbal Notification: Recipient Understood Notice: Yes Recipient Signature: Yes Med Rec Note Co-signed by Attending: Coverage Notice Comment: Last DP export: 08/25/18 1:18 pm Patient Name: OSMAN RIBEIRO Page 47710 at 1620 All edits/amendments must be made on the electronic document DICTATION DATE: 08/26/18 161 RN LABOR AND DELIVERY: DONAVAN 08/26/18 161 RPT#: [id number] DC DATE: STATUS: ADM IN [facility] [address] [place] [address] END OF REPORT
--- NOTE | 2018-08-26 19:20 | NUR ---
TELEMETRY PT RESTING IN BED. MONITOR ON SINK. PT DECLINED WHEN ASKING TO PUT IT ON. STATED HE DOESNT NEED IT. RETURNED TO HEAVY DUTY TRUCK MECHANIC
[2018-08-26 20:00] VITALS: BP 122/63
--- NOTE | 2018-08-26 20:09 | NUR ---
PT ASLEEP, RESP EVEN AND UNLABORED. NO S/S OF DISTRESS. NAME AND DATE PLACED ON BOARD. BED LOW AND CALL LIGHT IN REACH. WILL CPOC
--- NOTE | 2018-08-26 20:45 | NUR ---
PT CALLED FOR ASSIST TO RESTROOM. NURSE ASSISTED WITH MINIMAL ASSIST. FALL PRECAUTIONS FOLLOWED. SLIP FREE SOCKS ON. PT WILL CALL FOR ASSIST WHEN DONE WITH RESTROOM.
--- NOTE | 2018-08-26 21:01 | NUR ---
RIGHT FOOT DRSG CHANGE COMPLETE ORDERED. PT HAS OTHER AREAS ON FEET. NOT OPEN. NO DRSG APPLIED. LEFT AND RIGHT HAND HAS SKIN TEAR. WILL PLACE A NON ADHESIVE DRSG. PT IS AAO. DENIES ANY NEEDS. NO S/S OF DISTRESS. WILL CPOC
--- NOTE | 2018-08-26 21:03 | NUR ---
NO INSULIN NEEDED PER SLIDING SCALE. FSBS IS 132
--- NOTE | 2018-08-26 23:56 | NUR ---
PT ASKING FOR SOMETHING FOR PAIN. TYLENOL GIVEN, NIGHT MEDICATIONS GIVEN. PT VERBALIZED UNDERSTANDING IN MEDICATIONS. RESTORIL GIVEN FOR SLEEP. UPDATED PT ON POC. PT VERBALIZED UNDERSTANDING. NON ADHESIVE DRSG PLACED ON LEFT AND RIGHT HAND SKIN TEARS. PT WILL CALL FOR ASSIST WHEN NEEDED. WILL CPOC
[2018-08-27] VITALS: BP 102/45
--- NOTE | 2018-08-27 03:09 | NUR ---
PT ASLEEP. RESP EVEN AND UNLABORED. NO S/S OF DISTRESS. BED LOW AND CALL LIGHT IN REACH. WILL CPOC
[2018-08-27 04:30] VITALS: BP 106/52
--- NOTE | 2018-08-27 05:20 | NUR ---
MORNING MEDICATIONS GIVEN. PT VERBALIZED UNDERSTANDING OF MEDICATIONS. PT STATES HE WOKE UP EARLY THIS MORNING AND FORGOT WHERE HE WAS. PT IS NOW AAO. HAS NO S/S OF DISTRESS. PT BED LOW AND CALL LIGHT IN REACH. ASKED FOR ICECREAM. PT RECEIVED SUGAR FREE ICE CREAM. PT WILL CALL FOR ASSIST WHEN NEEDED. WILL CPOC
[2018-08-27 06:59] LABS: BASOPHILS 0.2 % (0-2); EOSINOPHILS 0.8 % (0-7); HEMATOCRIT 35.7 % (42.0-54.0); HEMOGLOBIN 11.9 g/dL (13.5-17.5); IMMATURE GRANULOCYTES 0.4 % (0-5); MCHC 33.3 g/dL (31.0-37.0); MEAN PLATELET VOLUME 11.1 fL (7.4-10.4); MONOCYTES 9.6 % (2-11); PLATELET COUNT 159 10x3/uL (130-400); RBC 4.41 10x6/uL (4.20-6.10); RDW 15.9 % (11.5-14.5); WBC 5.1 10x3/uL (4.8-10.8)
[2018-08-27 07:14] LABS: ANION GAP 16.5 mmol/L (8-16); CALCIUM 8.6 mg/dL (8.5-10.1); CARBON DIOXIDE 25.8 mmol/L (21.0-32.0); CREATININE - SERUM 3.5 mg/dL (0.6-1.3); POTASSIUM - SERUM 3.3 mmol/L (3.5-5.1); VANCOMYCIN - RANDOM 16.4 ug/mL (10.0-20.0)
--- NOTE | 2018-08-27 07:16 | NUR ---
FSBS IS 107 NO INSULIN NEEDED.
--- NOTE | 2018-08-27 07:45 | NUR ---
AM ROUNDS COMPLETED. INTRODUCED MYSELF TO PT PRIMARY RN FOR TODAYS SHIFT. PT IS A&O SITTING UP IN BED RESTING QUIETLY. PT STATES HE HAD A GOOD NIGHT BUT C/O BILAT CHRONIC LEG PAIN, PT TAKES TRAMADOL AT HOME, WILL DISCUSS WITH PRIMARY ABOUT RESTARTING THIS. PT HAS DIALYSIS TODAY AND DOESNT TAKE BP MEDICATIONS PRIOR SO I WILL HOLD THESE. R.AVF HAS GOOD BRUIT AND THRILL, SKIN INTACT AND NO ISSUES NOTED. PT DENIES ANY IMMEDIATE NEEDS AT THIS TIME. CL IN REACH, BED IN LOWEST, SIDE RAILS X2. WILL CPOC.
[2018-08-27 09:17] VITALS: BP 139/52
--- NOTE | 2018-08-27 10:14 | NUR ---
DIALYSIS CALLED FOR PT. BROUGHT DOWN VIA W/C. NO CURRENT NEEDS. WILL CTM.
--- NOTE | 2018-08-27 12:48 | NUR ---
Nutrition follow-up: Diet: Renal ADA Nepro TID PO Intake has been good Labs reviewed Wt: 204# RDN following.
--- NOTE | 2018-08-27 14:00 | NUR ---
PT BACK FROM DIALYSIS AND EATING LUNCH. PT DENIES ANY CURRENT PAIN OR NEEDS AT THIS TIME. CL IN REACH, NOW AT BEDSIDE. BED IN LOWEST. WILL CTM.
--- NOTE | 2018-08-27 14:35 | NUR ---
PT AMBULATED WITH THERAPY AND STATES HE FELT STRONGER. PT AMBULATED BACK TO BED. PTS L.AC PIV DRSG IS SOILED. CHANGED AND CLEANSED SITE. APPLIED TEGADERM AND SECURED WITH TAPE. IVPB VANCOMYCIN INFUSING ORDERED. PT DENIES ANY CURRENT NEEDS AT THIS TIME. CL IN REACH, BED IN LOWEST, SIDE RAILS X2. WILL CTM.
--- NOTE | 2018-08-27 16:28 | NUR ---
FSBS 161 PT REFUSED COVERAGE HE STATES HE DOESNT TAKE ANY AT HOME AND DOESNT WANT TO START, ALSO DIDNT TAKE ANY YESTERDAY AND BLOOD SUGAR TRENDED DOWN ON ITS OWN.
[2018-08-27 17:36] VITALS: BP 125/50
--- NOTE | 2018-08-27 19:30 | NUR ---
EVENING ROUNDS MADE. PT LAYING IN BED RESTING. DENIES PAIN AT THIS TIME. BS 175, PT REFUSES INSULIN. PT STATES "IF I TAKE INSULIN IT WILL BOTTOM OUT IN THE MORNING" NO FURTHER CONCERNS AT THIS TIME. FALL PRECAUTIONS IN PLACE. BED LOWERED AND LOCKED. CL IN REACH. WILL CTM.
[2018-08-27 20:00] VITALS: BP 107/57
--- NOTE | 2018-08-27 21:20 | NUR ---
VITALS STABLE. PT TOOK MEDS WITHOUT DIFFICULTY. NO FURTHER CONCERNS AT THIS TIME. BED LOWERED AND LOCKED. CL IN REACH. WILL CTM.
[2018-08-28] VITALS: BP 110/60
--- NOTE | 2018-08-28 00:42 | NUR ---
I have reviewed this patient and I concur with the Shift Assessment completed by the Licensed Practical Nurse today this shift.
--- NOTE | 2018-08-28 07:20 | NUR ---
PT RESTING IN BED, SHIFT ASSESSMENT PERFORMED. DENIES ANY NEEDS AT THIS TIME, WILL CONT TO FOLLOW POC
[2018-08-28 07:26] LABS: BASOPHILS 0.2 % (0-2); EOSINOPHILS 1.9 % (0-7); HEMATOCRIT 33.4 % (42.0-54.0); IMMATURE GRANULOCYTES 0.6 % (0-5); LYMPHOCYTES 11.9 % (15-50); MCH 26.8 pg (26.0-34.0); MCHC 32.9 g/dL (31.0-37.0); MCV 81.3 fL (80.0-100.0); MEAN PLATELET VOLUME 10.9 fL (7.4-10.4); MONOCYTES 11.3 % (2-11); NEUTROPHILS 74.1 % (40-80); PLATELET COUNT 182 10x3/uL (130-400); RBC 4.11 10x6/uL (4.20-6.10); WBC 4.8 10x3/uL (4.8-10.8)
[2018-08-28 07:29] LABS: ANION GAP 14.7 mmol/L (8-16); CALCIUM 8.6 mg/dL (8.5-10.1); CARBON DIOXIDE 26.4 mmol/L (21.0-32.0); POTASSIUM - SERUM 3.1 mmol/L (3.5-5.1); VANCOMYCIN - RANDOM 21.1 ug/mL (10.0-20.0)
[2018-08-28 09:20] VITALS: BP 135/54
--- NOTE | 2018-08-28 12:20 | NUR ---
PT RESTING IN BED EATING LUNCH. DENIES ANY NEEDS AT THIS TIME, WILL CONT TO FOLLOW POC
[2018-08-28 13:19] VITALS: BP 141/68
[2018-08-28 17:43] VITALS: BP 107/56
--- NOTE | 2018-08-28 19:23 | NUR ---
EVENING ROUNDS MADE. PT SITTING UP IN BED RESTING. DENIES PAIN AT THIS TIME. BREATHING EVEN AND UNLABORED. DENIES FURTHER CONCERNS. FALL PRECAUTIONS IN PLACE. BED LOWERED AND LOCKED. CL IN REACH. WILL CTM.
[2018-08-28 20:00] VITALS: BP 135/65
--- NOTE | 2018-08-28 20:50 | NUR ---
VITALS STABLE. PT TOOK MEDS WITHOUT DIFFICULTY. NO FURTHER CONCERNS AT THIS TIME. WILL CTM.
--- NOTE | 2018-08-29 01:45 | NUR ---
I have reviewed this patient and I concur with the Shift Assessment completed by the Licensed Practical Nurse today this shift.
[2018-08-29 05:41] LABS: BASOPHILS 0.5 % (0-2); EOSINOPHILS 2.6 % (0-7); HEMATOCRIT 33.7 % (42.0-54.0); IMMATURE GRANULOCYTES 0.9 % (0-5); LYMPHOCYTES 12.9 % (15-50); MCH 26.8 pg (26.0-34.0); MCHC 32.6 g/dL (31.0-37.0); MEAN PLATELET VOLUME 10.6 fL (7.4-10.4); MONOCYTES 10.3 % (2-11); NEUTROPHILS 72.8 % (40-80); PLATELET COUNT 184 10x3/uL (130-400); RBC 4.11 10x6/uL (4.20-6.10); RDW 16.2 % (11.5-14.5); WBC 4.3 10x3/uL (4.8-10.8)
[2018-08-29 06:05] LABS: ANION GAP 12.6 mmol/L (8-16); CALCIUM 8.8 mg/dL (8.5-10.1); CARBON DIOXIDE 28.5 mmol/L (21.0-32.0); CREATININE - SERUM 3.3 mg/dL (0.6-1.3); POTASSIUM - SERUM 3.1 mmol/L (3.5-5.1); VANCOMYCIN - RANDOM 28.1 ug/mL (10.0-20.0)
--- NOTE | 2018-08-29 07:15 | NUR ---
PT RESTING IN BED, SHIFT ASSESSMENT PERFORMED. DENIES ANY NEEDS AT THIS TIME, WILL CONT TO FOLLOW POC
[2018-08-29 07:52] VITALS: BP 151/62
--- NOTE | 2018-08-29 09:37 | NUR ---
RD FOLLOW UP: PATIENT VERY HARD OF HEARDING. AT BEDSIDE. STATED HE IS FEELING MUCH BETTER TODAY. 100% PO RECORDED ON DOOR FOR BREAKFAST. 67% PO MEAL AVERAGE OVER THE LAST 6 MEALS. LAST BOWEL MOVEMENT 08/24/18. PATIENT RECEIVING NEPRO WITH ALL MEALS. WILL CONTINUE TO MONITOR AND FOLLOW UP PER PROTOCOL RD FOLLOWING
--- NOTE | 2018-08-29 11:40 | NUR ---
PT TAKEN DOWN TO DIALYSIS VIA WHEELCHAIR
[2018-08-29 12:01] VITALS: BP 138/56
--- NOTE | 2018-08-29 16:36 | MORECARE ---
CASE MANAGEMENT DISCHARGE SUMMARY PATIENT: OSMAN RIBEIRO UNIT: [id number] ADM DATE: 08/24/18 AGE: 73 : 44 SEX: M ROOM/BED: D.2185 AUTHOR: CHRISTIANO FLANAGAN PHYSICIAN: REFERRING PHYSICIAN: COMPA NAQVI MD DATE OF SERVICE: 08/29/18 Discharge Plan Patient Name: OSMAN RIBEIRO [facility] [facility] 1945 Planned Disposition: [facility] Anticipated Discharge Date: Discharge Date: Expected LOS: Initial Reviewer: [email or web address] Initial Review Date: 08/25/2018 Generated: 08/29/18 5:36 pm DCP- Discharge Planning Updated by [id number]: Stephane Navarro on 08/26/18 3:[address] Patient Name: OSMAN RIBEIRO Encounter No: [id number] : 1945 Primary Insurance: MEDICARE A & B Anticipated DC Date: Planned Disposition: Inpatient Rehab External Planned Provider: [facility] INPATIENT REH[facility] DCP follow-up note: CM RECEIVED MESSAGE FROM PT'S SPOUSE, THEY WANT INPATIENT REHAB AT [place]. CM RECEIVED INPATIENT REHAB PRESCREENING ORDER. CM SPOKE TO PT IN ROOM, PT WILL DISCUSS THIS WITH HIS AND IS CONSIDERING REHAB AT [place]. IMPORTANT MESSAGE FROM MEDICARE PROVIDED AND EXPLAINED. CM WAITING PRESCREEN COMPLETION AND ADMISSION DETERMINATION FROM [facility] INPATIENT RE[facility]. Stephane Navarro,.CASE MANAGMENT DCP- Discharge Planning Updated by [id number]: Sue Werner on 08/25/18 1:[address] Patient Name: OSMAN RIBEIRO Admission Status: ER Accout number: [id number] Admission Date: 08-24-2018 : 1945 Admission Diagnosis: Attending: COMPA NAQVI Current LOS: 1 Anticipated DC Date: Planned Disposition: Home Primary Insurance: MEDICARE A & B Discharge Planning Comments: CM met with patient to complete initial dc planning assessment. CM educated patient on the CM role and verbal consent given by patient to complete assessment. CM verified patient's address, phone number, and emergency contact phone numbers. Patient lives at home WITH and reports he is independent in his care. At discharge patient plans to return home and feels this is a safe discharge. CM discussed availability of home health, rehab services, and medical equipment. Patient denied known discharge needs at this time.. PT HAS HD MWF AT [facility] . CM will continue to follow and will assist as needed with dc plans/needs. Hadoop Analyst: Sue Werner DCPIA - Discharge Planning Initial Assessment Updated by [id number]: Sue Werner on 08/25/18 2:12 pm * Is the patient Alert and Oriented? Yes * How many steps to enter\exit or inside your home? * PCP EZ * Pharmacy [facility] [address] * Preadmission Environment Home with Family * ADLs Independent * Equipment CPAP * Other Equipment CANE AND WALKER * List name and contact numbers for known caregivers / representatives who currently or will assist patient after discharge: SPOUSE INDER [phone] * Verbal permission to speak to the caregivers and representatives has been obtained from the patient. Yes * Additional services required to return to the preadmission environment? No * Can the patient safely return to the preadmission environment? Yes * Has this patient been hospitalized within the prior 30 days at any hospital? No Coverage Notice Reviewer: BETHANY Navarro Notice Issued Date-Time: 08/26/2018 15:50 Notice Type: IM Discharge Notice Notice Delivered To: Patient Relationship to Patient: Explosives Operator Name: Delivery Method: HAND - Hand Delivered Yen Days: Prior Verbal Notification: Recipient Understood Notice: Yes Recipient Signature: Yes Med Rec Note Co-signed by Attending: Coverage Notice Comment: Reviewer: [id number] Navarro Notice Issued Date-Time: 08/29/2018 16:10 Notice Type: IM Discharge Notice Notice Delivered To: Family Member Relationship to Patient: Spouse Explosives Operator Name: INDER RIBEIRO Delivery Method: HAND - Hand Delivered Yen Days: Prior Verbal Notification: Recipient Understood Notice: Yes Recipient Signature: Yes Med Rec Note Co-signed by Attending: Coverage Notice Comment: Last DP export: 08/26/18 3:20 pm Patient Name: OSMAN RIBEIRO Page [phone] at 1636 All edits/amendments must be made on the electronic document DICTATION DATE: 08/29/18 1636 HOSPITALITY AIDE: DONAVAN 08/29/18 1636 RPT#: [id number] DC DATE: STATUS: ADM IN [facility] [address] [place] [address] END OF REPORT
--- NOTE | 2018-08-29 16:45 | MORECARE ---
CASE MANAGEMENT DISCHARGE SUMMARY PATIENT: OSMAN RIBEIRO UNIT: [id number] ADM DATE: 08/24/18 AGE: 73 : 44 SEX: M ROOM/BED: D.2393 AUTHOR: MASHADOC PHYSICIAN: REFERRING PHYSICIAN: COMPA NAQVI MD DATE OF SERVICE: 08/29/18 Discharge Plan Patient Name: OSMAN RIEBIRO Facility: [facility]:[place] : 1945 Planned Disposition: Long-Term Facility Anticipated Discharge Date: Discharge Date: Expected LOS: Initial Reviewer: [id number] Initial Review Date: 08/25/2018 Generated: 08/29/18 5:44 pm Comments DCP- Discharge Planning Updated by [id number]: Stephane Navarro on 08/29/18 3:[address] Patient Name: OSMAN RIBEIRO Encounter No: [id number] : 1945 Primary Insurance: MEDICARE A & B Anticipated DC Date: Planned Disposition: Long-Term Facility External Planned Provider: WAITING PT/FAMILIY DECISION DCP follow-up note: CM SPOKE TO [facility] OF INPATIENT REHAB, PT WILL NOT BE ACCEPTED TO REHAB THERAPY HAS SIGNED OFF, PT IS TOO HIGH FUNCTIONING FOR INPATIENT REHAB. CM MET WITH PT'S SPOUSE IN ROOM, PT IN DIALYSIS. CM PROVIDED EXPLAINATION OF REHAB DENIAL. PT'S SPOUSE REPORTS PT CANNOT GET UP OFF THE TOILET AND CANNOT GET UP OFF THE FLOOR IF HE FALLS. PT'S SPOUSE REPORTS SHE CANNOT TAKE PT HOME SHE IS NOT ABLE TO MANAGE HIM WITH HIM BEING SO WEAK. CM DISCUSSED SENDING REFERRAL TO [facility] INPATIENT REHAB BUT WOULD EXPECT THE SAME RESULT AFTER REVIEWING PT'S THERAPY NOTES. CM DISCUSSED SENIOR CARE REHAB OPTION. PT'S SPOUSE REPORTS PT WILL NOT GO TO A RESIDENTIAL. CM EXPLAINED THAT HE WOULD BE THERE FOR REHAB AND WOULD BE ON A REHAB PAULINO, NOT IN BEAN SNAPPER CARE. PT'S SPOUSE WILL DISCUSS THIS OPTION WITH PT. CM LEFT HOSPITAL SECURITY GUARDS DISPATCHER INFORMATION AND CM CONTACT NUMBER. CM INFORMED PT'S SPOUSE THAT SHE CAN SPEAK TO REHAB SCREENER DOWNSTAIRS IF SHE HAS FURTHER QUESTIONS REGARDING WHY PT WILL NOT BE ACCEPTED INTO INPATIENT REHAB AT [place]. IMPORTANT MESSAGE FROM MEDICARE PROVIDED AND DISCUSSED. CM WAITING PT / FAMILY DECISION REGARDING GOING TO SENIOR CARE REHAB. PT WAS DECLINED FOR INPATIENT REHAB, SPOUSE REPORTS BEING UNABLE TO CARE FOR PT AT HOME IN HIS CURRENT WEAKENED STATE AND PT DOES NOT WANT TO CONSIDER SENIOR CARE FACILITY. CM TO CONTINUE TO FOLLOW AND ASSIST. Stephane Navarro, CASE MANAGEMENT DCP- Discharge Planning Updated by [id number]: Stephane Navarro on 08/26/18 3:[address] Patient Name: OSMAN RIBEIRO Encounter No: [id number] : 1945 Primary Insurance: MEDICARE A & B Anticipated DC Date: Planned Disposition: Inpatient Rehab External Planned Provider: [facility] INPAT[facility] DCP follow-up note: CM RECEIVED MESSAGE FROM PT'S SPOUSE, THEY WANT INPATIENT REHAB AT [place]. CM RECEIVED INPATIENT REHAB PRESCREENING ORDER. CM SPOKE TO PT IN ROOM, PT WILL DISCUSS THIS WITH HIS AND IS CONSIDERING REHAB AT [place]. IMPORTANT MESSAGE FROM MEDICARE PROVIDED AND EXPLAINED. CM WAITING PRESCREEN COMPLETION AND ADMISSION DETERMINATION FROM [facility] INPAT[facility]. Stephane Navarro,.CASE MANAGMENT DCP- Discharge Planning Updated by [id number]: Sue Werner on 08/25/18 1:[address] Patient Name: OSMAN RIBEIRO Admission Status: ER Accout number: [id number] Admission Date: 08-24-2018 : 1945 Admission Diagnosis: Attending: COMPA NAQVI Current LOS: 1 Anticipated DC Date: Planned Disposition: Home Primary Insurance: MEDICARE A & B Discharge Planning Comments: CM met with patient to complete initial dc planning assessment. CM educated patient on the CM role and verbal consent given by patient to complete assessment. CM verified patient's address, phone number, and emergency contact phone numbers. Patient lives at home WITH and reports he is independent in his care. At discharge patient plans to return home and feels this is a safe discharge. CM discussed availability of home health, rehab services, and medical equipment. Patient denied known discharge needs at this time.. PT HAS HD MWF AT [facility] . CM will continue to follow and will assist as needed with dc plans/needs. Long Term Care Pharmacist: Sue Werner DCPIA - Discharge Planning Initial Assessment Updated by [id number]: Sue Werner on 08/25/18 2:12 pm * Is the patient Alert and Oriented? Yes * How many steps to enter\exit or inside your home? * PCP EZ * Pharmacy [facility] [address] * Preadmission Environment Home with Family * ADLs Independent * Equipment CPAP * Other Equipment CANE AND WALKER * List name and contact numbers for known caregivers / representatives who currently or will assist patient after discharge: SPOUSE INDER [phone] * Verbal permission to speak to the caregivers and representatives has been obtained from the patient. Yes * Additional services required to return to the preadmission environment? No * Can the patient safely return to the preadmission environment? Yes * Has this patient been hospitalized within the prior 30 days at any hospital? No Coverage Notice Reviewer: [id number] Navarro Notice Issued Date-Time: 08/26/2018 15:50 Notice Type: IM Discharge Notice Notice Delivered To: Patient Relationship to Patient: Fiberglass Insulation Installer Name: Delivery Method: HAND - Hand Delivered Yen Days: Prior Verbal Notification: Recipient Understood Notice: Yes Recipient Signature: Yes Med Rec Note Co-signed by Attending: Coverage Notice Comment: Reviewer: [id number] Navarro Notice Issued Date-Time: 08/29/2018 16:10 Notice Type: IM Discharge Notice Notice Delivered To: Family Member Relationship to Patient: Spouse Fiberglass Insulation Installer Name: INDER RIBEIRO Delivery Method: HAND - Hand Delivered Yen Days: Prior Verbal Notification: Recipient Understood Notice: Yes Recipient Signature: Yes Med Rec Note Co-signed by Attending: Coverage Notice Comment: Last DP export: 08/29/18 3:36 pm Patient Name: OSMAN RIBEIRO Page [id number] at 1645 All edits/amendments must be made on the electronic document DICTATION DATE: 08/29/181643 EMERGENCY ROOM CLINICIAN: DONAVAN 08/29/181643 RPT#: [id number] DC DATE: STATUS: ADM IN [facility] [address] [place] [address] END OF REPORT
--- NOTE | 2018-08-29 19:45 | NUR ---
PT LAYING IN BED ALERT AND ORIENTED X4. RR EVEN AND UNLABORED. PT DENIES ANY NEEDS AT THIS TIME. BED LOW CALL LIGHT WITHIN REACH. WILL CONTINUE TO MONITOR.
[2018-08-29 20:00] VITALS: BP 144/58
[2018-08-30] VITALS: BP 121/49
--- NOTE | 2018-08-30 02:15 | NUR ---
I have reviewed this patient and I concur with the Shift Assessment completed by the Licensed Practical Nurse today this shift.
[2018-08-30 04:00] VITALS: BP 116/52
[2018-08-30 05:46] LABS: BASOPHILS 0.6 % (0-2); EOSINOPHILS 1.8 % (0-7); HEMATOCRIT 35.3 % (42.0-54.0); HEMOGLOBIN 11.5 g/dL (13.5-17.5); LYMPHOCYTES 10.8 % (15-50); MCH 27.1 pg (26.0-34.0); MCHC 32.6 g/dL (31.0-37.0); MCV 83.1 fL (80.0-100.0); MEAN PLATELET VOLUME 10.4 fL (7.4-10.4); MONOCYTES 8.9 % (2-11); NEUTROPHILS 76.9 % (40-80); PLATELET COUNT 196 10x3/uL (130-400); RBC 4.25 10x6/uL (4.20-6.10); RDW 16.2 % (11.5-14.5); WBC 5.1 10x3/uL (4.8-10.8)
[2018-08-30 06:13] LABS: ANION GAP 14.5 mmol/L (8-16); CALCIUM 8.8 mg/dL (8.5-10.1); CARBON DIOXIDE 28.9 mmol/L (21.0-32.0); CREATININE - SERUM 2.7 mg/dL (0.6-1.3); POTASSIUM - SERUM 3.4 mmol/L (3.5-5.1)
--- NOTE | 2018-08-30 07:00 | NUR ---
RECEIVED REPORT. ASSUMED CARE OF PATIENT. PATIENT SITTING TO SIDE OF BED WITH EYES OPEN. NO DISTRESS. DENIES NEEDS AT THIS TIME. CALL LIGHT WITHIN REACH.
--- NOTE | 2018-08-30 09:30 | NUR ---
AT BEDSIDE FOR MEDICATION ADMINISTRATION. PATIENTS AT BEDSIDE WITH MANY QUESTIONS ABOUT WHY PATIENT WAS DENIED REHAB WHEN HE CAN NOT GET OUT OF BED OR OFF OF THE TOILET BY HIMSELF AND HE HAS FALLEN MULTIPLE TIMES BECAUSE HE CAN'T GET UP. CASE MANAGMENT NOTES REVEIWED AND PATIENT STATES SHE KNOWS EVERYTHING THAT I REINFORCED. RENAL FOREIGN SERVICE TEACHER NOTIFIED OF PATIENT WEAKNESS AND PATIENT CANNOT GET HIM IN OR OUT OF THE CAR TO GET HIM TO DIALYSIS. RECONSULT FOR PT ORDERED. CASE MANAGEMENT FELIX NOTIFIED OF SCENARIO.
[2018-08-30 09:33] VITALS: BP 140/56
--- NOTE | 2018-08-30 10:36 | NUR ---
TREATMENT TO RIGHT PLANTAR FOOT COMPLETED AT THIS TIME. NO DISTRESS.
--- NOTE | 2018-08-30 11:37 | NUR ---
FSBS 189. PATIENT REFUSED INSULIN AT THIS TIME. WILL WAIT AND SEE IF HE WANTS INSULIN WITH 1600 READING.
--- NOTE | 2018-08-30 13:30 | NUR ---
SPOKE WITH DAY PACHECO AND HE STATED PATIENT GOT OOB UNASSISTED. PATIENT AMBULATED WITH USE OF ASSISTIVE DEVICE. PT STATES THAT PATIENT WAS PREVIOUSLY WEAK AND FALLING AT HOME BECAUSE OF THE BLOOD INFECTION THAT WE TREATED HIME FOR. HE STATES PATIENT CAN BENEFIT FROM A BEDSIDE COMMODE AND HE PUT ON AT THE PATIENTS BEDSIDE. HE STATES PATIENT ALSO HAS A WALKER AND A CANE AT HOME THAT HE CAN USE. THEAPY SIGNED OFF AGAIN.
[2018-08-30 14:23] VITALS: BP 127/61
[2018-08-30 16:10] VITALS: BP 133/59
--- NOTE | 2018-08-30 16:34 | NUR ---
FSBS 120. NO INSULIN PER SLIDING SCALE. PATIENT IS GLAD HE REFUSED INSULIN THIS AFTERNOON.
--- NOTE | 2018-08-30 17:00 | NUR ---
20 GAUGE IV REMOVED FROM LEFT AC AREA APPEARED INFILTRATED. WARM CLOTHS APPLIED. CATHETER TIP INTACT. 20 GAUGE IV PLACED TO LEFT FOREARM X 1 STICK. GOOD BLOOD RETURN, EASY FLUSH. TAPED, DATED, AND SECURED. TOLERAED IV PLACEMENT WELL. NO DISTRESS.
[2018-08-30 17:23] LABS: APPEARANCE CLEAR (CLEAR); COLOR YELLOW (YELLOW); NITRITE NEGATIVE (NEGATIVE); PROTEIN 2+ mg/dL (NEGATIVE)
[2018-08-30 17:24] LABS: BILIRUBIN NEGATIVE (NEGATIVE); GLUCOSE NEGATIVE (NEGATIVE); KETONE NEGATIVE (NEGATIVE)
[2018-08-30 19:10] VITALS: BP 148/58
--- NOTE | 2018-08-30 19:53 | NUR ---
PT RESTING ON SIDE IN BED WATCHING TV. RR EVEN AND UNLABORED. PT STATES , "I FEEL SO MUCH BETTER TODAY." PT COMPLAINS OF PAIN 7/10 IN BACK. PRN PAIN MEDICATION WILL BE GIVEN WITH MEDS. VITALS STABLE. PT DENIES ANY FURTHER NEEDS AT THIS TIME. BED LOW CALL LIGHT WITHIN REACH. WILL CONTINUE TO MONITOR.
[2018-08-31] VITALS: BP 138/60
--- NOTE | 2018-08-31 02:21 | NUR ---
PT SITTING UP ON THE SIDE OF BED DOING CROSSWORD PUZZLE. NO S/S OF DISTRESS AT THIS TIME. CALL LIGHT WITHIN REACH. BED LOW. THIS NURSE WILL CONTINUE TO MONITOR.
[2018-08-31 04:00] VITALS: BP 153/71
[2018-08-31 05:10] LABS: BASOPHILS 0.7 % (0-2); HEMATOCRIT 35.1 % (42.0-54.0); HEMOGLOBIN 11.3 g/dL (13.5-17.5); IMMATURE GRANULOCYTES 1.3 % (0-5); LYMPHOCYTES 14.8 % (15-50); MCH 26.8 pg (26.0-34.0); MCHC 32.2 g/dL (31.0-37.0); MCV 83.2 fL (80.0-100.0); MEAN PLATELET VOLUME 10.3 fL (7.4-10.4); MONOCYTES 8.5 % (2-11); NEUTROPHILS 72.7 % (40-80); PLATELET COUNT 174 10x3/uL (130-400); RBC 4.22 10x6/uL (4.20-6.10); RDW 16.3 % (11.5-14.5); WBC 4.5 10x3/uL (4.8-10.8)
[2018-08-31 05:29] LABS: ANION GAP 13.7 mmol/L (8-16); CALCIUM 8.8 mg/dL (8.5-10.1); CARBON DIOXIDE 28.7 mmol/L (21.0-32.0); CREATININE - SERUM 2.9 mg/dL (0.6-1.3); POTASSIUM - SERUM 3.4 mmol/L (3.5-5.1); VANCOMYCIN - RANDOM 26.7 ug/mL (10.0-20.0)
--- NOTE | 2018-08-31 05:30 | NUR ---
I have reviewed this patient and I concur with the Shift Assessment completed by the Licensed Practical Nurse today this shift.
--- NOTE | 2018-08-31 07:00 | NUR ---
RECEIVED REPORT. ASSUMED CARE OF PATIENT. CALL LIGHT WITHIN REACH. PATIENT SITTING TO SIDE OF BED DOING CROSSWORD PUZZLE. NO DISTRESS. DENIES NEEDS. RESP EVEN AND UNLABORD.
[2018-08-31 09:13] VITALS: BP 143/69
--- NOTE | 2018-08-31 11:55 | NUR ---
FSBS 201. PATIENT REFUSED INSULIN FSBS DROPS TOO QUICKLY. NO DISTRESS.
[2018-08-31 12:38] VITALS: BP 139/67
--- NOTE | 2018-08-31 14:28 | NUR ---
1405 - 20 GAUGE IV REMOVED FROM LEFT FOREARM. CATHETER TIP INTACT. NO BLEEDING FROM SITE. 2X2 GAUZE APPLIED AND SECURED WITH BANDAID. 1420 - DISCHARGE INSTRUCTIONS PROVIDED TO PATIENT AND HIS . PATIENT AND VERBALIZED ALL INSTRUCTIONS PROVIDED AND PATIENTS REPEATED INSTRUCTIONS BACK TO THIS DEPUTY EDITOR IN CHIEF IN REGARDS TO MEDICAL EQUIPMENT SHE MUSH ASSISTANT DEPARTMENT MANAGER.
--- NOTE | 2018-08-31 14:30 | NUR ---
PATIENT LEFT UNIT VIA WHEELCHAIR WITH ALL PERSONAL BELONGINGS. NO DISTRESS UPON LEAVING UNIT. PATIENT DISCHARGED TO HOME WITH HIS .
--- NOTE | 2018-08-31 14:36 | MORECARE ---
CASE MANAGEMENT DISCHARGE SUMMARY PATIENT: OSMAN RIBEIRO UNIT: [id number] ADM DATE: 08/24/18 AGE: 73 : 43 SEX: M ROOM/BED: D.2601 AUTHOR: MASHADOC PHYSICIAN: REFERRING PHYSICIAN: COMPA NAQVI MD DATE OF SERVICE: 08/31/18 Discharge Plan Patient Name: OSMAN RIBEIRO Facility: [facility]:[place] : 1945 Planned Disposition: Nursing Home Facility Anticipated Discharge Date: Discharge Date: Expected LOS: Initial Reviewer: [id number] Initial Review Date: 08/25/2018 Generated: 08/31/18 3:36 pm Comments DCP- Discharge Planning Updated by [email or web address]: Stephane Navarro on 08/29/18 3:[address] Patient Name: OSMAN RIBEIRO Encounter No: [id number] : 1945 Primary Insurance: MEDICARE A & B Anticipated DC Date: Planned Disposition: Nursing Home Facility External Planned Provider: WAITING PT/FAMILIY DECISION DCP follow-up note: CM SPOKE TO MAGALYS OF INPATIENT REHAB, PT WILL NOT BE ACCEPTED TO REHAB THERAPY HAS SIGNED OFF, PT IS TOO HIGH FUNCTIONING FOR INPATIENT REHAB. CM MET WITH PT'S SPOUSE IN ROOM, PT IN DIALYSIS. CM PROVIDED EXPLAINATION OF REHAB DENIAL. PT'S SPOUSE REPORTS PT CANNOT GET UP OFF THE TOILET AND CANNOT GET UP OFF THE FLOOR IF HE FALLS. PT'S SPOUSE REPORTS SHE CANNOT TAKE PT HOME SHE IS NOT ABLE TO MANAGE HIM WITH HIM BEING SO WEAK. CM DISCUSSED SENDING REFERRAL TO [facility]ENDING SALE TO [facility] INPATIENT REHAB BUT WOULD EXPECT THE SAME RESULT AFTER REVIEWING PT'S THERAPY NOTES. CM DISCUSSED ALF REHAB OPTION. PT'S SPOUSE REPORTS PT WILL NOT GO TO A [facility]. CM EXPLAINED THAT HE WOULD BE THERE FOR REHAB AND WOULD BE ON A REHAB [place], NOT IN [employer] [facility]PER[employer] CARE. PT'S SPOUSE WILL DISCUSS THIS OPTION WITH PT. CM LEFT HOSPITAL CASING FINISHER AND STUFFER INFORMATION AND CM CONTACT NUMBER. CM INFORMED PT'S SPOUSE THAT SHE CAN SPEAK TO REHAB SCREENER DOWNSTAIRS IF SHE HAS FURTHER QUESTIONS REGARDING WHY PT WILL NOT BE ACCEPTED INTO INPATIENT REHAB AT [place]. IMPORTANT MESSAGE FROM MEDICARE PROVIDED AND DISCUSSED. CM WAITING PT / FAMILY DECISION REGARDING GOING TO ALF REHAB. PT WAS DECLINED FOR INPATIENT REHAB, SPOUSE REPORTS BEING UNABLE TO CARE FOR PT AT HOME IN HIS CURRENT WEAKENED STATE AND PT DOES NOT WANT TO CONSIDER ALF FACILITY. CM TO CONTINUE TO FOLLOW AND ASSIST. Stephane Navarro, CASE MANAGEMENT DCP- Discharge Planning Updated by [id number]: Stephane Navarro on 08/26/18 3:[address] Patient Name: OSMAN RIBEIRO Encounter No: [id number] : 1945 Primary Insurance: MEDICARE A & B Anticipated DC Date: Planned Disposition: Inpatient Rehab External Planned Provider: [facility] INPATIENT REHAB DCP follow-up note: CM RECEIVED MESSAGE FROM PT'S SPOUSE, THEY WANT INPATIENT REHAB AT [place]. CM RECEIVED INPATIENT REHAB PRESCREENING ORDER. CM SPOKE TO PT IN ROOM, PT WILL DISCUSS THIS WITH HIS AND IS CONSIDERING REHAB AT [place]. IMPORTANT MESSAGE FROM MEDICARE PROVIDED AND EXPLAINED. CM WAITING PRESCREEN COMPLETION AND ADMISSION DETERMINATION FROM [facility] INPATIENT REHAB. Stephane Navarro,.CASE MANAGMENT DCP- Discharge Planning Updated by [email or web address]: Sue Werner on 08/25/18 1:[address] Patient Name: OSMAN RIBEIRO Admission Status: ER Accout number: [id number] Admission Date: 08-24-2018 : 1945 Admission Diagnosis: Attending: COMPA NAQVI Current LOS: 1 Anticipated DC Date: Planned Disposition: Home Primary Insurance: MEDICARE A & B Discharge Planning Comments: CM met with patient to complete initial dc planning assessment. CM educated patient on the CM role and verbal consent given by patient to complete assessment. CM verified patient's address, phone number, and emergency contact phone numbers. Patient lives at home WITH and reports he is independent in his care. At discharge patient plans to return home and feels this is a safe discharge. CM discussed availability of home health, rehab services, and medical equipment. Patient denied known discharge needs at this time.. PT HAS HD MWF AT [facility] . CM will continue to follow and will assist as needed with dc plans/needs. Splitter Operator: Sue Werner DCPIA - Discharge Planning Initial Assessment Updated by [email or web address]: Sue Werner on 08/25/18 2:12 pm * Is the patient Alert and Oriented? Yes * How many steps to enter\exit or inside your home? * PCP EZ * Pharmacy [facility] [address] * Preadmission Environment Home with Family * ADLs Independent * Equipment CPAP * Other Equipment CANE AND WALKER * List name and contact numbers for known caregivers / representatives who currently or will assist patient after discharge: SPOUSE INDER [phone] * Verbal permission to speak to the caregivers and representatives has been obtained from the patient. Yes * Additional services required to return to the preadmission environment? No * Can the patient safely return to the preadmission environment? Yes * Has this patient been hospitalized within the prior 30 days at any hospital? No Coverage Notice Reviewer: [id number] Navarro Notice Issued Date-Time: 08/26/2018 15:50 Notice Type: IM Discharge Notice Notice Delivered To: Patient Relationship to Patient: Order Dispatcher Name: Delivery Method: HAND - Hand Delivered Yen Days: Prior Verbal Notification: Recipient Understood Notice: Yes Recipient Signature: Yes Med Rec Note Co-signed by Attending: Coverage Notice Comment: Reviewer: [id number] Navarro Notice Issued Date-Time: 08/29/2018 16:10 Notice Type: IM Discharge Notice Notice Delivered To: Family Member Relationship to Patient: Spouse Order Dispatcher Name: INDER RIBEIRO Delivery Method: HAND - Hand Delivered Yen Days: Prior Verbal Notification: Recipient Understood Notice: Yes Recipient Signature: Yes Med Rec Note Co-signed by Attending: Coverage Notice Comment: Last DP export: 08/29/18 3:44 pm Patient Name: OSMAN RIBEIRO Page [id number] at 1436 All edits/amendments must be made on the electronic document DICTATION DATE: 08/31/18 1435 SITE TECHNICIAN: DONAVAN 08/31/18 1435 RPT#: [id number] DC DATE: STATUS: ADM IN [facility] [address] [place] [address] END OF REPORT
--- NOTE | 2018-08-31 14:50 | MORECARE ---
CASE MANAGEMENT DISCHARGE SUMMARY PATIENT: OSMAN RIBEIRO UNIT: [id number] ADM DATE: 08/24/18 AGE: 73 : 44 SEX: M ROOM/BED: D.9373 AUTHOR: MASHADOC PHYSICIAN: REFERRING PHYSICIAN: COMPA NAQVI MD DATE OF SERVICE: 08/31/18 Discharge Plan Patient Name: OSMAN RIBEIRO Facility: [facility]:[place] : 1945 Planned Disposition: Long Term Facility Anticipated Discharge Date: Discharge Date: Expected LOS: Initial Reviewer: [id number] Initial Review Date: 08/25/2018 Generated: 08/31/18 3:50 pm Comments DCP- Discharge Planning Updated by [email or web address]: Stephane Navarro on 08/29/18 3:[address] Patient Name: OSMAN RIBEIRO Encounter No: [id number] : 1945 Primary Insurance: MEDICARE A & B Anticipated DC Date: Planned Disposition: Long Term Facility External Planned Provider: WAITING PT/FAMILIY DECISION DCP follow-up note: CM SPOKE TO MAGALYS OF INPATIENT REHAB, PT WILL NOT BE ACCEPTED TO REHAB THERAPY HAS SIGNED OFF, PT IS TOO HIGH FUNCTIONING FOR INPATIENT REHAB. CM MET WITH PT'S SPOUSE IN ROOM, PT IN DIALYSIS. CM PROVIDED EXPLAINATION OF REHAB DENIAL. PT'S SPOUSE REPORTS PT CANNOT GET UP OFF THE TOILET AND CANNOT GET UP OFF THE FLOOR IF HE FALLS. PT'S SPOUSE REPORTS SHE CANNOT TAKE PT HOME SHE IS NOT ABLE TO MANAGE HIM WITH HIM BEING SO WEAK. CM DISCUSSED SENDING REFERRAL TO [facility] INPATIENT REHAB BUT WOULD EXPECT THE SAME RESULT AFTER REVIEWING PT'S THERAPY NOTES. CM DISCUSSED [facility] REHAB OPTION. PT'S SPOUSE REPORTS PT WILL NOT GO TO A [facility]. CM EXPLAINED THAT HE WOULD BE THERE FOR REHAB AND WOULD BE ON A REHAB [place], NOT IN [facility] RO[employer] SUPERVISOR CARE. PT'S SPOUSE WILL DISCUSS THIS OPTION WITH PT. CM LEFT HOSPITAL CYLINDER LOADER INFORMATION AND CM CONTACT NUMBER. CM INFORMED PT'S SPOUSE THAT SHE CAN SPEAK TO REHAB SCREENER DOWNSTAIRS IF SHE HAS FURTHER QUESTIONS REGARDING WHY PT WILL NOT BE ACCEPTED INTO INPATIENT REHAB AT [place]. IMPORTANT MESSAGE FROM MEDICARE PROVIDED AND DISCUSSED. CM WAITING PT / FAMILY DECISION REGARDING GOING TO [facility] REHAB. PT WAS DECLINED FOR INPATIENT REHAB, SPOUSE REPORTS BEING UNABLE TO CARE FOR PT AT HOME IN HIS CURRENT WEAKENED STATE AND PT DOES NOT WANT TO CONSIDER [facility] FACILITY. CM TO CONTINUE TO FOLLOW AND ASSIST. Stephane Navarro, CASE MANAGEMENT DCP- Discharge Planning Updated by [email or web address]: Stephane Navarro on 08/26/18 3:[address] Patient Name: OSMAN RIBEIRO Encounter No: [id number] : 1945 Primary Insurance: MEDICARE A & B Anticipated DC Date: Planned Disposition: Inpatient Rehab External Planned Provider: [facility] INPATIENT REHAB DCP follow-up note: CM RECEIVED MESSAGE FROM PT'S SPOUSE, THEY WANT INPATIENT REHAB AT [place]. CM RECEIVED INPATIENT REHAB PRESCREENING ORDER. CM SPOKE TO PT IN ROOM, PT WILL DISCUSS THIS WITH HIS AND IS CONSIDERING REHAB AT [place]. IMPORTANT MESSAGE FROM MEDICARE PROVIDED AND EXPLAINED. CM WAITING PRESCREEN COMPLETION AND ADMISSION DETERMINATION FROM [facility] INPATIENT REHAB. Stephane Navarro,.CASE MANAGMENT DCP- Discharge Planning Updated by [email or web address]: Sue Werner on 08/25/18 1:[address] Patient Name: OSMAN RIBEIRO Admission Status: ER Accout number: [id number] Admission Date: 08-24-2018 : 1945 Admission Diagnosis: Attending: COMPA NAQVI Current LOS: 1 Anticipated DC Date: Planned Disposition: Home Primary Insurance: MEDICARE A & B Discharge Planning Comments: CM met with patient to complete initial dc planning assessment. CM educated patient on the CM role and verbal consent given by patient to complete assessment. CM verified patient's address, phone number, and emergency contact phone numbers. Patient lives at home WITH and reports he is independent in his care. At discharge patient plans to return home and feels this is a safe discharge. CM discussed availability of home health, rehab services, and medical equipment. Patient denied known discharge needs at this time.. PT HAS HD MWF AT [facility] . CM will continue to follow and will assist as needed with dc plans/needs. Chalk Tester: Sue Werner DCPIA - Discharge Planning Initial Assessment Updated by [id number]: Sue Werner on 08/25/18 2:12 pm * Is the patient Alert and Oriented? Yes * How many steps to enter\exit or inside your home? * PCP EZ * Pharmacy [facility] [address] * Preadmission Environment Home with Family * ADLs Independent * Equipment CPAP * Other Equipment CANE AND WALKER * List name and contact numbers for known caregivers / representatives who currently or will assist patient after discharge: SPOUSE INDER [phone] * Verbal permission to speak to the caregivers and representatives has been obtained from the patient. Yes * Additional services required to return to the preadmission environment? No * Can the patient safely return to the preadmission environment? Yes * Has this patient been hospitalized within the prior 30 days at any hospital? No Coverage Notice Reviewer: [id number] Navarro Notice Issued Date-Time: 08/26/2018 15:50 Notice Type: IM Discharge Notice Notice Delivered To: Patient Relationship to Patient: Student Ambassador Name: Delivery Method: HAND - Hand Delivered Yen Days: Prior Verbal Notification: Recipient Understood Notice: Yes Recipient Signature: Yes Med Rec Note Co-signed by Attending: Coverage Notice Comment: Reviewer: [id number] Navarro Notice Issued Date-Time: 08/29/2018 16:10 Notice Type: IM Discharge Notice Notice Delivered To: Family Member Relationship to Patient: Spouse Student Ambassador Name: INDER RIBEIRO Delivery Method: HAND - Hand Delivered Yen Days: Prior Verbal Notification: Recipient Understood Notice: Yes Recipient Signature: Yes Med Rec Note Co-signed by Attending: Coverage Notice Comment: Last DP export: 08/31/18 1:36 pm Patient Name: OSMAN RIBEIRO Page [phone] at 1450 All edits/amendments must be made on the electronic document DICTATION DATE: 08/31/18 1450 ASSISTANT RESEARCH SCIENTIST: DONAVAN 08/31/18 1450 RPT#: [id number] DC DATE: STATUS: ADM IN [facility] [address] [place] [address] END OF REPORT
--- NOTE | 2018-08-31 14:58 | MORECARE ---
CASE MANAGEMENT DISCHARGE SUMMARY PATIENT: OSMAN RIBEIRO UNIT: [id number] ADM DATE: 08/24/18 AGE: 73 : 44 SEX: M ROOM/BED: D.5295 AUTHOR: CHRISTIANO FLANAGAN PHYSICIAN: REFERRING PHYSICIAN: COMPA NAQVI MD DATE OF SERVICE: 08/31/18 Discharge Plan Patient Name: OSMAN RIBEIRO Facility: [facility]:[place] : 1945 Planned Disposition: Halfway Facility Anticipated Discharge Date: Discharge Date: Expected LOS: Initial Reviewer: [id number] Initial Review Date: 08/25/2018 Generated: 08/31/18 3:58 pm Comments DCP- Discharge Planning Updated by [email or web address]: Ely Rivas on 08/31/18 1:[address] Patient Name: OSMAN RIBEIRO Encounter No: [id number] : 1945 Primary Insurance: MEDICARE A & B Anticipated DC Date: Planned Disposition: Home with . Ordered rw from [facility]. Refused HH at this time. External Planned Provider: : DCP follow-up note: CM met with patient and his to discuss dc plan/needs. Plan is to return home with his . He needs a RW with a seat which his will machine pecan picker at [facility] tomorrow prior to picking him up from dialysis. He also was asking about a raised toilet seat. Informed them that insurance does not cover raised toilet seats but educated them that they could purchase this item at [employer]. They verbalized understanding and to pick one up for him. He goes to [facility] . will be transporting him to and from hd. Discussed home health services with them and his stated he has a appointment with Dr. Craft re his legs/PVD and they would like to wait on the home health till after that appointment next week. JANEE form signed by sharonda for [facility], signed copy left with patient and signed copy placed in patient's chart. will transport the patient home. They denied further dc needs and they both agree dc plan to home is safe. CM will continue to follow and will assist as needed. DC IMM delivered, explained, signed by the patient, and placed in his chart. Signed form also left with patient. Ely Rivas RN, CCM Ely Rivas DCP- Discharge Planning Updated by [id number]: Stephane Navarro on 08/29/18 3:[address] Patient Name: OSMAN RIBEIRO Encounter No: [id number] : 1945 Primary Insurance: MEDICARE A & B Anticipated DC Date: Planned Disposition: Halfway Facility External Planned Provider: WAITING PT/FAMILIY DECISION DCP follow-up note: CM SPOKE TO MAGALYS OF INPATIENT REHAB, PT WILL NOT BE ACCEPTED TO REHAB THERAPY HAS SIGNED OFF, PT IS TOO HIGH FUNCTIONING FOR INPATIENT REHAB. CM MET WITH PT'S SPOUSE IN ROOM, PT IN DIALYSIS. CM PROVIDED EXPLAINATION OF REHAB DENIAL. PT'S SPOUSE REPORTS PT CANNOT GET UP OFF THE TOILET AND CANNOT GET UP OFF THE FLOOR IF HE FALLS. PT'S SPOUSE REPORTS SHE CANNOT TAKE PT HOME SHE IS NOT ABLE TO MANAGE HIM WITH HIM BEING SO WEAK. CM DISCUSSED SENDING REFERRAL TO [facility] INPATIENT REHAB BUT WOULD EXPECT THE SAME RESULT AFTER REVIEWING PT'S THERAPY NOTES. CM DISCUSSED RETIREMENT REHAB OPTION. PT'S SPOUSE REPORTS PT WILL NOT [facility]. CM EXPLAINED THAT HE WOULD BE THERE FOR REHAB AND WOULD BE ON A REHAB [place], NOT IN [employer] C[employer] SHEET SUPERVISOR CARE. PT'S SPOUSE WILL DISCUSS THIS OPTION WITH PT. CM LEFT H[facility]PITAL [facility] INFORMATION AND CM CONTACT NUMBER. CM INFORMED PT'S SPOUSE THAT SHE CAN SPEAK TO REHAB SCREENER DOWNSTAIRS IF SHE HAS FURTHER QUESTIONS REGARDING WHY PT WILL NOT BE ACCEPTED INTO INPATIENT REHAB AT [place]. IMPORTANT MESSAGE FROM MEDICARE PROVIDED AND DISCUSSED. CM WAITING PT / FAMILY DECISION REGARDING GOING TO RETIREMENT REHAB. PT WAS DECLINED FOR INPATIENT REHAB, SPOUSE REPORTS BEING UNABLE TO CARE FOR PT AT HOME IN HIS CURRENT WEAKENED STATE AND PT DOES NOT WANT TO CONSIDER RETIREMENT FACILITY. CM TO CONTINUE TO FOLLOW AND ASSIST. Stephane Navarro, CASE MANAGEMENT DCP- Discharge Planning Updated by [email or web address]: Stephane Navarro on 08/26/18 3:[address] Patient Name: OSMAN RIBEIRO Encounter No: [id number] : 1945 Primary Insurance: MEDICARE A & B Anticipated DC Date: Planned Disposition: Inpatient Rehab External Planned Provider: [facility] INPATIENT REHAB DCP follow-up note: CM RECEIVED MESSAGE FROM PT'S SPOUSE, THEY WANT INPATIENT REHAB AT [place]. CM RECEIVED INPATIENT REHAB PRESCREENING ORDER. CM SPOKE TO PT IN ROOM, PT WILL DISCUSS THIS WITH HIS AND IS CONSIDERING REHAB AT [place]. IMPORTANT MESSAGE FROM MEDICARE PROVIDED AND EXPLAINED. CM WAITING PRESCREEN COMPLETION AND ADMISSION DETERMINATION FROM [facility] INPATIENT REHAB. Stephane Navarro,.CASE MANAGMENT DCP- Discharge Planning Updated by [id number]: Sue Werner on 08/25/18 1:[address] Patient Name: OSMAN RIBEIRO Admission Status: ER Accout number: [id number] Admission Date: 08-24-2018 : 1945 Admission Diagnosis: Attending: COMPA NAQVI Current LOS: 1 Anticipated DC Date: Planned Disposition: Home Primary Insurance: MEDICARE A & B Discharge Planning Comments: CM met with patient to complete initial dc planning assessment. CM educated patient on the CM role and verbal consent given by patient to complete assessment. CM verified patient's address, phone number, and emergency contact phone numbers. Patient lives at home WITH and reports he is independent in his care. At discharge patient plans to return home and feels this is a safe discharge. CM discussed availability of home health, rehab services, and medical equipment. Patient denied known discharge needs at this time.. PT HAS HD MWF AT [facility] . CM will continue to follow and will assist as needed with dc plans/needs. Instantizer Operator: Sue Mittalman DCPIA - Discharge Planning Initial Assessment Updated by [email or web address]: Sue Werner on 08/25/18 2:12 pm * Is the patient Alert and Oriented? Yes * How many steps to enter\exit or inside your home? * PCP EZ * Pharmacy [facility] [address] * Preadmission Environment Home with Family * ADLs Independent * Equipment CPAP * Other Equipment CANE AND WALKER * List name and contact numbers for known caregivers / representatives who currently or will assist patient after discharge: SPOUSE INDER [phone] * Verbal permission to speak to the caregivers and representatives has been obtained from the patient. Yes * Additional services required to return to the preadmission environment? No * Can the patient safely return to the preadmission environment? Yes * Has this patient been hospitalized within the prior 30 days at any hospital? No Coverage Notice Reviewer: [id number] Chuckie Navarro Notice Issued Date-Time: 08/26/2018 15:50 Notice Type: IM Discharge Notice Notice Delivered To: Patient Relationship to Patient: Strategic Business Development Name: Delivery Method: HAND - Hand Delivered Yen Days: Prior Verbal Notification: Recipient Understood Notice: Yes Recipient Signature: Yes Med Rec Note Co-signed by Attending: Coverage Notice Comment: Reviewer: [id number] Chuckie Navarro Notice Issued Date-Time: 08/29/2018 16:10 Notice Type: IM Discharge Notice Notice Delivered To: Family Member Relationship to Patient: Spouse [employer] Business [employer] Name: INDER RIBEIRO Delivery Method: HAND - Hand Delivered Yen Days: Prior Verbal Notification: Recipient Understood Notice: Yes Recipient Signature: Yes Med Rec Note Co-signed by Attending: Coverage Notice Comment: Reviewer: [email or web address] Chuckie Rivas Notice Issued Date-Time: 08/31/2018 13:20 Notice Type: IM Discharge Notice Notice Delivered To: Patient Relationship to Patient: Strategic Business Development Name: Delivery Method: HAND - Hand Delivered Yen Days: Prior Verbal Notification: Recipient Understood Notice: Recipient Signature: Med Rec Note Co-signed by Attending: Coverage Notice Comment: Last DP export: 08/31/18 1:50 pm Patient Name: OSMAN RIBEIRO Page [id number] at 1458 All edits/amendments must be made on the electronic document DICTATION DATE: 08/31/181456 BPO SPECIALIST: ODNAVAN 08/31/181456 RPT#: [id number] DC DATE: STATUS: ADM IN [facility] [address] [place] [address] END OF REPORT
--- NOTE | 2018-08-31 15:06 | MORECARE ---
CASE MANAGEMENT DISCHARGE SUMMARY PATIENT: OSMAN RIBEIRO UNIT: [id number] ADM DATE: 08/24/18 AGE: 73 : 44 SEX: M ROOM/BED: D.3316 AUTHOR: CHRISTIANO FLANAGAN PHYSICIAN: REFERRING PHYSICIAN: COMPA NAQVI MD DATE OF SERVICE: 08/31/18 Discharge Plan Patient Name: OSMAN RIBEIRO Facility: [facility]:[place] : 1945 Planned Disposition: Snf Facility Anticipated Discharge Date: Discharge Date: Expected LOS: Initial Reviewer: [id number] Initial Review Date: 08/25/2018 Generated: 08/31/18 4:05 pm Comments DCP- Discharge Planning Updated by [id number]: Ely Rivas on 08/31/18 1:[address] Patient Name: OSMAN RIBEIRO Encounter No: [id number] : 1945 Primary Insurance: MEDICARE A & B Anticipated DC Date: Planned Disposition: Home with . Ordered rw from [facility]. Refused HH at this time. External Planned Provider: : DCP follow-up note: CM met with patient and his to discuss dc plan/needs. Plan is to return home with his . He needs a RW with a seat which his will order picker/assembler at [employer] tomorrow prior to picking him up from dialysis. He also was asking about a raised toilet seat. Informed them that insurance does not cover raised toilet seats but educated them that they could purchase this item at [employer]. They verbalized understanding and to pick one up for him. He goes to [facility] . will be transporting him to and from hd. Discussed home health services with them and his stated he has a appointment with Dr. Craft re his legs/PVD and they would like to wait on the home health till after that appointment next week. JANEE form signed by sharonda for [facility], signed copy left with patient and signed copy placed in patient's chart. will transport the patient home. They denied further dc needs and they both agree dc plan to home is safe. CM will continue to follow and will assist as needed. DC IMM delivered, explained, signed by the patient, and placed in his chart. Signed form also left with patient. Ely Rivas RN, CCM Ely Rivas DCP- Discharge Planning Updated by [id number]: Stephane Navarro on 08/29/18 3:[address] Patient Name: OSMAN RIBEIRO Encounter No: [id number] : 1945 Primary Insurance: MEDICARE A & B Anticipated DC Date: Planned Disposition: Snf Facility External Planned Provider: WAITING PT/FAMILIY DECISION DCP follow-up note: CM SPOKE TO MAGALYS OF INPATIENT REHAB, PT WILL NOT BE ACCEPTED TO REHAB THERAPY HAS SIGNED OFF, PT IS TOO HIGH FUNCTIONING FOR INPATIENT REHAB. CM MET WITH PT'S SPOUSE IN ROOM, PT IN DIALYSIS. CM PROVIDED EXPLAINATION OF REHAB DENIAL. PT'S SPOUSE REPORTS PT CANNOT GET UP OFF THE TOILET AND CANNOT GET UP OFF THE FLOOR IF HE FALLS. PT'S SPOUSE REPORTS SHE CANNOT TAKE PT HOME SHE IS NOT ABLE TO MANAGE HIM WITH HIM BEING SO WEAK. CM DISCUSSED SENDING REFERRAL TO [facility] INPATIENT REHAB BUT WOULD EXPECT THE SAME RESULT AFTER REVIEWING PT'S THERAPY NOTES. CM DISCUSSED RESIDENTIAL REHAB OPTION. PT'S SPOUSE REPORTS PT WILL NOT GO TO A JAIL. CM EXPLAINED THAT HE WOULD BE THERE FOR REHAB AND WOULD BE ON A REHAB PAULINO, NOT IN DOCUMENT REVIEWER CARE. PT'S SPOUSE WILL DISCUSS THIS OPTION WITH PT. CM LEFT HOSPITAL TAKE OFF WORKER INFORMATION AND CM CONTACT NUMBER. CM INFORMED PT'S SPOUSE THAT SHE CAN SPEAK TO REHAB SCREENER DOWNSTAIRS IF SHE HAS FURTHER QUESTIONS REGARDING WHY PT WILL NOT BE ACCEPTED INTO INPATIENT REHAB AT [place]. IMPORTANT MESSAGE FROM MEDICARE PROVIDED AND DISCUSSED. CM WAITING PT / FAMILY DECISION REGARDING GOING TO RESIDENTIAL REHAB. PT WAS DECLINED FOR INPATIENT REHAB, SPOUSE REPORTS BEING UNABLE TO CARE FOR PT AT HOME IN HIS CURRENT WEAKENED STATE AND PT DOES NOT WANT TO CONSIDER RESIDENTIAL FACILITY. CM TO CONTINUE TO FOLLOW AND ASSIST. Stephane Navarro, CASE MANAGEMENT DCP- Discharge Planning Updated by [email or web address]: Stephane Navarro on 08/26/18 3:[address] Patient Name: OSMAN RIBEIRO Encounter No: [id number] : 1945 Primary Insurance: MEDICARE A & B Anticipated DC Date: Planned Disposition: Inpatient Rehab External Planned Provider: [facility] INPATIENT REHAB DCP follow-up note: CM RECEIVED MESSAGE FROM PT'S SPOUSE, THEY WANT INPATIENT REHAB AT [place]. CM RECEIVED INPATIENT REHAB PRESCREENING ORDER. CM SPOKE TO PT IN ROOM, PT WILL DISCUSS THIS WITH HIS AND IS CONSIDERING REHAB AT [place]. IMPORTANT MESSAGE FROM MEDICARE PROVIDED AND EXPLAINED. CM WAITING PRESCREEN COMPLETION AND ADMISSION DETERMINATION FROM [facility] INPATIENT REHAB. Stephane Navarro,.CASE MANAGMENT DCP- Discharge Planning Updated by [id number]: Sue Werner on 08/25/18 1:[address] Patient Name: OSMAN RIBEIRO Admission Status: ER Accout number: [id number] Admission Date: 08-24-2018 : 1945 Admission Diagnosis: Attending: COMPA NAQVI Current LOS: 1 Anticipated DC Date: Planned Disposition: Home Primary Insurance: MEDICARE A & B Discharge Planning Comments: CM met with patient to complete initial dc planning assessment. CM educated patient on the CM role and verbal consent given by patient to complete assessment. CM verified patient's address, phone number, and emergency contact phone numbers. Patient lives at home WITH and reports he is independent in his care. At discharge patient plans to return home and feels this is a safe discharge. CM discussed availability of home health, rehab services, and medical equipment. Patient denied known discharge needs at this time.. PT HAS HD MWF AT [facility] . CM will continue to follow and will assist as needed with dc plans/needs. Instructor Looping: Sue Werner DCPIA - Discharge Planning Initial Assessment Updated by [id number]: Sue Mittalman on 08/25/18 2:12 pm * Is the patient Alert and Oriented? Yes * How many steps to enter\exit or inside your home? * PCP EZ * Pharmacy [facility] [address] * Preadmission Environment Home with Family * ADLs Independent * Equipment CPAP * Other Equipment CANE AND WALKER * List name and contact numbers for known caregivers / representatives who currently or will assist patient after discharge: SPOUSE INDER [phone] * Verbal permission to speak to the caregivers and representatives has been obtained from the patient. Yes * Additional services required to return to the preadmission environment? No * Can the patient safely return to the preadmission environment? Yes * Has this patient been hospitalized within the prior 30 days at any hospital? No External Providers External Provider: OTHER-OTHER Next Contact Date: Service Request Date: Service Type: Resolution: Reviewer: Comments: Coverage Notice Reviewer: [email or web address] Chuckie Navarro Notice Issued Date-Time: 08/26/2018 15:50 Notice Type: IM Discharge Notice Notice Delivered To: Patient Relationship to Patient: Electrical Engineering Technician Name: Delivery Method: HAND - Hand Delivered Yen Days: Prior Verbal Notification: Recipient Understood Notice: Yes Recipient Signature: Yes Med Rec Note Co-signed by Attending: Coverage Notice Comment: Reviewer: [id number] Navarro Notice Issued Date-Time: 08/29/2018 16:10 Notice Type: IM Discharge Notice Notice Delivered To: Family Member Relationship to Patient: Spouse Electrical Engineering Technician Name: INDER RIBEIRO Delivery Method: HAND - Hand Delivered Yen Days: Prior Verbal Notification: Recipient Understood Notice: Yes Recipient Signature: Yes Med Rec Note Co-signed by Attending: Coverage Notice Comment: Reviewer: [email or web address] Chuckie Rvias Notice Issued Date-Time: 08/31/2018 13:20 Notice Type: IM Discharge Notice Notice Delivered To: Patient Relationship to Patient: Electrical Engineering Technician Name: Delivery Method: HAND - Hand Delivered Yen Days: Prior Verbal Notification: Recipient Understood Notice: Recipient Signature: Med Rec Note Co-signed by Attending: Coverage Notice Comment: Last DP export: 08/31/18 1:58 pm Patient Name: OSMAN RIBEIRO Page 15253 at 1506 All edits/amendments must be made on the electronic document DICTATION DATE: 08/31/18 1505 PHOTOGRAPHY INTERN: DONAVAN 08/31/18 1505 RPT#: [id number] DC DATE: STATUS: ADM IN [facility] [address] [place] [address] END OF REPORT
--- NOTE | 2018-08-31 15:12 | MORECARE ---
CASE MANAGEMENT DISCHARGE SUMMARY PATIENT: OSMAN RIBEIRO UNIT: [id number] ADM DATE: 08/24/18 AGE: 73 : 44 SEX: M ROOM/BED: D.9619 AUTHOR: CHRISTIANO FLANAGAN PHYSICIAN: REFERRING PHYSICIAN: COMPA NAQVI MD DATE OF SERVICE: 08/31/18 Discharge Plan Patient Name: OSMAN RIBEIRO Facility: [facility]:[place] : 1945 Planned Disposition: Prison Facility Anticipated Discharge Date: Discharge Date: Expected LOS: Initial Reviewer: [id number] Initial Review Date: 08/25/2018 Generated: 08/31/18 4:12 pm Comments DCP- Discharge Planning Updated by [id number]: Ely Rivas on 08/31/18 1:[address] Patient Name: OSMAN RIBEIRO Encounter No: [id number] : 1945 Primary Insurance: MEDICARE A & B Anticipated DC Date: Planned Disposition: Home with . Ordered rw from [facility]. Refused HH at this time. External Planned Provider: : DCP follow-up note: CM met with patient and his to discuss dc plan/needs. Plan is to return home with his . He needs a RW with a seat which his will crop picker at [employer] tomorrow prior to picking him up from dialysis. He also was asking about a raised toilet seat. Informed them that insurance does not cover raised toilet seats but educated them that they could purchase this item at [employer]. They verbalized understanding and to pick one up for him. He goes to [facility] . will be transporting him to and from hd. Discussed home health services with them and his stated he has a appointment with Dr. Craft re his legs/PVD and they would like to wait on the home health till after that appointment next week. JANEE form signed by sharonda for [facility], signed copy left with patient and signed copy placed in patient's chart. will transport the patient home. They denied further dc needs and they both agree dc plan to home is safe. CM will continue to follow and will assist as needed. DC IMM delivered, explained, signed by the patient, and placed in his chart. Signed form also left with patient. Ely Rivas RN, CCM Ely Rivas DCP- Discharge Planning Updated by [id number]: Stephane Navarro on 08/29/18 3:[address] Patient Name: OSMAN RIBEIRO Encounter No: [id number] : 1945 Primary Insurance: MEDICARE A & B Anticipated DC Date: Planned Disposition: Prison Facility External Planned Provider: WAITING PT/FAMILIY DECISION DCP follow-up note: CM SPOKE TO MAGALYS OF INPATIENT REHAB, PT WILL NOT BE ACCEPTED TO REHAB THERAPY HAS SIGNED OFF, PT IS TOO HIGH FUNCTIONING FOR INPATIENT REHAB. CM MET WITH PT'S SPOUSE IN ROOM, PT IN DIALYSIS. CM PROVIDED EXPLAINATION OF REHAB DENIAL. PT'S SPOUSE REPORTS PT CANNOT GET UP OFF THE TOILET AND CANNOT GET UP OFF THE FLOOR IF HE FALLS. PT'S SPOUSE REPORTS SHE CANNOT TAKE PT HOME SHE IS NOT ABLE TO MANAGE HIM WITH HIM BEING SO WEAK. CM DISCUSSED SENDING REFERRAL TO [facility] INPATIENT REHAB BUT WOULD EXPECT THE SAME RESULT AFTER REVIEWING PT'S THERAPY NOTES. CM DISCUSSED INTERMEDIATE REHAB OPTION. PT'S SPOUSE REPORTS PT WILL NOT GO TO A CORRECTION. CM EXPLAINED THAT HE WOULD BE THERE FOR REHAB AND WOULD BE ON A REHAB [place], NOT IN WINDOWS SERVER ENGINEER CARE. PT'S SPOUSE WILL DISCUSS THIS OPTION WITH PT. CM LEFT HOSPITAL ADULT SPECIALIST INFORMATION AND CM CONTACT NUMBER. CM INFORMED PT'S SPOUSE THAT SHE CAN SPEAK TO REHAB SCREENER DOWNSTAIRS IF SHE HAS FURTHER QUESTIONS REGARDING WHY PT WILL NOT BE ACCEPTED INTO INPATIENT REHAB AT [place]. IMPORTANT MESSAGE FROM MEDICARE PROVIDED AND DISCUSSED. CM WAITING PT / FAMILY DECISION REGARDING GOING TO INTERMEDIATE REHAB. PT WAS DECLINED FOR INPATIENT REHAB, SPOUSE REPORTS BEING UNABLE TO CARE FOR PT AT HOME IN HIS CURRENT WEAKENED STATE AND PT DOES NOT WANT TO CONSIDER INTERMEDIATE FACILITY. CM TO CONTINUE TO FOLLOW AND ASSIST. Stephane Navarro, CASE MANAGEMENT DCP- Discharge Planning Updated by [id number]: Stephane Navarro on 08/26/18 3:[address] Patient Name: OSMAN RIBEIRO Encounter No: [id number] : 1945 Primary Insurance: MEDICARE A & B Anticipated DC Date: Planned Disposition: Inpatient Rehab External Planned Provider: [facility] INPATIENT REH[facility] DCP follow-up note: CM RECEIVED MESSAGE FROM PT'S SPOUSE, THEY WANT INPATIENT REHAB AT [place]. CM RECEIVED INPATIENT REHAB PRESCREENING ORDER. CM SPOKE TO PT IN ROOM, PT WILL DISCUSS THIS WITH HIS AND IS CONSIDERING REHAB AT [place]. IMPORTANT MESSAGE FROM MEDICARE PROVIDED AND EXPLAINED. CM WAITING PRESCREEN COMPLETION AND ADMISSION DETERMINATION FROM [facility] INPATIENT REHAB. Stephane Navarro,.CASE MANAGMENT DCP- Discharge Planning Updated by [id number]: Sue Werner on 08/25/18 1:[address] Patient Name: OSMAN RIBEIRO Admission Status: ER Accout number: [id number] Admission Date: 08-24-2018 : 1945 Admission Diagnosis: Attending: COMPA NAQVI Current LOS: 1 Anticipated DC Date: Planned Disposition: Home Primary Insurance: MEDICARE A & B Discharge Planning Comments: CM met with patient to complete initial dc planning assessment. CM educated patient on the CM role and verbal consent given by patient to complete assessment. CM verified patient's address, phone number, and emergency contact phone numbers. Patient lives at home WITH and reports he is independent in his care. At discharge patient plans to return home and feels this is a safe discharge. CM discussed availability of home health, rehab services, and medical equipment. Patient denied known discharge needs at this time.. PT HAS HD MWF AT [facility] . CM will continue to follow and will assist as needed with dc plans/needs. Advanced Registered Nurse: Sue Werner DCPIA - Discharge Planning Initial Assessment Updated by [id number]: Sue Mittalman on 08/25/18 2:12 pm * Is the patient Alert and Oriented? Yes * How many steps to enter\exit or inside your home? * PCP EZ * Pharmacy [facility] [address] * Preadmission Environment Home with Family * ADLs Independent * Equipment CPAP * Other Equipment CANE AND WALKER * List name and contact numbers for known caregivers / representatives who currently or will assist patient after discharge: SPOUSE INDER [phone] * Verbal permission to speak to the caregivers and representatives has been obtained from the patient. Yes * Additional services required to return to the preadmission environment? No * Can the patient safely return to the preadmission environment? Yes * Has this patient been hospitalized within the prior 30 days at any hospital? No External Providers External Provider: OTHER-OTHER Next Contact Date: Service Request Date: Service Type: Resolution: Reviewer: Comments: Coverage Notice Reviewer: [id number] Chuckie Navarro Notice Issued Date-Time: 08/29/2018 16:10 Notice Type: IM Discharge Notice Notice Delivered To: Family Member Relationship to Patient: Spouse Senior Java Web Developer Name: INDER RIBEIRO Delivery Method: HAND - Hand Delivered Yen Days: Prior Verbal Notification: Recipient Understood Notice: Yes Recipient Signature: Yes Med Rec Note Co-signed by Attending: Coverage Notice Comment: Reviewer: [id number] Chuckie Rivas Notice Issued Date-Time: 08/31/2018 13:20 Notice Type: IM Discharge Notice Notice Delivered To: Patient Relationship to Patient: Senior Java Web Developer Name: Delivery Method: HAND - Hand Delivered Yen Days: Prior Verbal Notification: Recipient Understood Notice: Recipient Signature: Med Rec Note Co-signed by Attending: Coverage Notice Comment: Reviewer: [id number] Chuckie Navarro Notice Issued Date-Time: 08/26/2018 15:50 Notice Type: IM Discharge Notice Notice Delivered To: Patient Relationship to Patient: Senior Java Web Developer Name: Delivery Method: HAND - Hand Delivered Yen Days: Prior Verbal Notification: Recipient Understood Notice: Yes Recipient Signature: Yes Med Rec Note Co-signed by Attending: Coverage Notice Comment: Last DP export: 08/31/18 2:05 pm Patient Name: OSMAN RIBEIRO Page [id number] at 1512 All edits/amendments must be made on the electronic document DICTATION DATE: 08/31/181511 CASTING ROOM HELPER: DONAVAN 08/31/18 151 RPT#: [id number] DC DATE: STATUS: ADM IN [facility] [address] [place] [address] END OF REPORT
--- NOTE | 2018-09-01 09:04 | MORECARE ---
CASE MANAGEMENT DISCHARGE SUMMARY PATIENT: OSMAN RIBEIRO UNIT: [id number] ADM DATE: 08/24/18 AGE: 73 : 44 SEX: M ROOM/BED: D.1775 AUTHOR: CHRISTIANO FLANAGAN PHYSICIAN: REFERRING PHYSICIAN: COMPA NAQVI MD DATE OF SERVICE: 09/01/18 Discharge Plan Patient Name: OSMAN RIBEIRO Facility: [facility]:[place] : 1945 Planned Disposition: Home Anticipated Discharge Date: 08/31/18 Discharge Date: 08/31/2018 Expected LOS: 7 Initial Reviewer: [id number] Initial Review Date: 08/25/2018 Generated: 09/01/18 10:04 am Comments DCP- Discharge Planning Updated by [email or web address]: Ely Rivas on 08/31/18 1:[address] Patient Name: OSMAN RIBEIRO Encounter No: [id number] : 1945 Primary Insurance: MEDICARE A & B Anticipated DC Date: Planned Disposition: Home with . Ordered rw from [facility]. Refused HH at this time. External Planned Provider: : DCP follow-up note: CM met with patient and his to discuss dc plan/needs. Plan is to return home with his . He needs a RW with a seat which his will pick up man at [employer] tomorrow prior to picking him up from dialysis. He also was asking about a raised toilet seat. Informed them that insurance does not cover raised toilet seats but educated them that they could purchase this item at [employer] They verbalized understanding and to pick one up for him. He goes to [facility] will be transporting him to and from hd. Discussed home health services with them and his stated he has a appointment with Dr. Craft re his legs/PVD and they would like to wait on the home health till after that appointment next week. JANEE form signed by sharonda for [facility], signed copy left with patient and signed copy placed in patient's chart. will transport the patient home. They denied further dc needs and they both agree dc plan to home is safe. CM will continue to follow and will assist as needed. DC IMM delivered, explained, signed by the patient, and placed in his chart. Signed form also left with patient. Ely Rivas RN, CCM Ely Rivas DCP- Discharge Planning Updated by [id number]: Stephane Navarro on 08/29/18 3:[address] Patient Name: OSMAN RIBEIRO Encounter No: [id number] : 1945 Primary Insurance: MEDICARE A & B Anticipated DC Date: Planned Disposition: [facility] Facility External Planned Provider: WAITING PT/FAMILIY DECISION DCP follow-up note: CM SPOKE TO MAGALYS OF INPATIENT REHAB, PT WILL NOT BE ACCEPTED TO REHAB THERAPY HAS SIGNED OFF, PT IS TOO HIGH FUNCTIONING FOR INPATIENT REHAB. CM MET WITH PT'S SPOUSE IN ROOM, PT IN DIALYSIS. CM PROVIDED EXPLAINATION OF REHAB DENIAL. PT'S SPOUSE REPORTS PT CANNOT GET UP OFF THE TOILET AND CANNOT GET UP OFF THE FLOOR IF HE FALLS. PT'S SPOUSE REPORTS SHE CANNOT TAKE PT HOME SHE IS NOT ABLE TO MANAGE HIM WITH HIM BEING SO WEAK. CM DISCUSSED SENDING REFERRAL TO [facility] INPATIENT REHAB BUT WOULD EXPECT THE SAME RESULT AFTER REVIEWING PT'S THERAPY NOTES. CM DISCUSSED [facility] RE[facility]AB OPTION. PT'S SPOUSE REPORTS PT WILL NOT GO TO A [facility]. CM EXPLAINED THAT HE WOULD BE THERE FOR REHAB AND WOULD BE ON A REHAB PAUL[facility], NOT IN PANEL COVERER CARE. PT'S SPOUSE WILL DISCUSS THIS OPTION WITH PT. CM LEFT HOSPITAL RESTAURANT SUPERVISOR INFORMATION AND CM CONTACT NUMBER. CM INFORMED PT'S SPOUSE THAT SHE CAN SPEAK TO REHAB SCREENER DOWNSTAIRS IF SHE HAS FURTHER QUESTIONS REGARDING WHY PT WILL NOT BE ACCEPTED INTO INPATIENT REHAB AT [place]. IMPORTANT MESSAGE FROM MEDICARE PROVIDED AND DISCUSSED. CM WAITING PT / FAMILY DECISION REGARDING GOING TO [facility] RE[facility]. PT WAS DECLINED FOR INPATIENT REHAB, SPOUSE REPORTS BEING UNABLE TO CARE FOR PT AT HOME IN HIS CURRENT WEAKENED STATE AND PT DOES NOT WANT TO CONSIDER [facility] FACILITY. CM TO CONTINUE TO FOLLOW AND ASSIST. Stephane Navarro, CASE MANAGEMENT DCP- Discharge Planning Updated by [id number]: Stephane Navarro on 08/26/18 3:[address] Patient Name: OSMAN RIBIERO Encounter No: [id number] : 1945 Primary Insurance: MEDICARE A & B Anticipated DC Date: Planned Disposition: Inpatient Rehab External Planned Provider: [facility] INPATIENT REHAB DCP follow-up note: CM RECEIVED MESSAGE FROM PT'S SPOUSE, THEY WANT INPATIENT REHAB AT [place]. CM RECEIVED INPATIENT REHAB PRESCREENING ORDER. CM SPOKE TO PT IN ROOM, PT WILL DISCUSS THIS WITH HIS AND IS CONSIDERING REHAB AT [place]. IMPORTANT MESSAGE FROM MEDICARE PROVIDED AND EXPLAINED. CM WAITING PRESCREEN COMPLETION AND ADMISSION DETERMINATION FROM [facility] INPATIENT REHAB. Stephane Navarro,.CASE MANAGMENT DCP- Discharge Planning Updated by [id number]: Sue Alphonso on 08/25/18 1:[address] Patient Name: OSMAN RIBEIRO Admission Status: ER Accout number: [id number] Admission Date: 08-24-2018 : 1945 Admission Diagnosis: Attending: COMPA NAQVI Current LOS: 1 Anticipated DC Date: Planned Disposition: Home Primary Insurance: MEDICARE A & B Discharge Planning Comments: CM met with patient to complete initial dc planning assessment. CM educated patient on the CM role and verbal consent given by patient to complete assessment. CM verified patient's address, phone number, and emergency contact phone numbers. Patient lives at home WITH and reports he is independent in his care. At discharge patient plans to return home and feels this is a safe discharge. CM discussed availability of home health, rehab services, and medical equipment. Patient denied known discharge needs at this time.. PT HAS HD MWF AT [facility] . CM will continue to follow and will assist as needed with dc plans/needs. Boarder Hand: Sue Werner DCPIA - Discharge Planning Initial Assessment Updated by [email or web address]: Sue Werner on 08/25/18 2:12 pm * Is the patient Alert and Oriented? Yes * How many steps to enter\exit or inside your home? * PCP EZ * Pharmacy [facility] [address] * Preadmission Environment Home with Family * ADLs Independent * Equipment CPAP * Other Equipment CANE AND WALKER * List name and contact numbers for known caregivers / representatives who currently or will assist patient after discharge: SPOUSE INDER [phone] * Verbal permission to speak to the caregivers and representatives has been obtained from the patient. Yes * Additional services required to return to the preadmission environment? No * Can the patient safely return to the preadmission environment? Yes * Has this patient been hospitalized within the prior 30 days at any hospital? No Coverage Notice Reviewer: [email or web address] Chuckie Navarro Notice Issued Date-Time: 08/26/2018 15:50 Notice Type: IM Discharge Notice Notice Delivered To: Patient Relationship to Patient: Beamster Name: Delivery Method: HAND - Hand Delivered Yen Days: Prior Verbal Notification: Recipient Understood Notice: Yes Recipient Signature: Yes Med Rec Note Co-signed by Attending: Coverage Notice Comment: Reviewer: [id number] Chuckie Navarro Notice Issued Date-Time: 08/29/2018 16:10 Notice Type: IM Discharge Notice Notice Delivered To: Family Member Relationship to Patient: Spouse Beamster Name: INDER RIBEIRO Delivery Method: HAND - Hand Delivered Yen Days: Prior Verbal Notification: Recipient Understood Notice: Yes Recipient Signature: Yes Med Rec Note Co-signed by Attending: Coverage Notice Comment: Reviewer: [id number] Chuckie Rivas Notice Issued Date-Time: 08/31/2018 13:20 Notice Type: IM Discharge Notice Notice Delivered To: Patient Relationship to Patient: Beamster Name: Delivery Method: HAND - Hand Delivered Yen Days: Prior Verbal Notification: Recipient Understood Notice: Recipient Signature: Med Rec Note Co-signed by Attending: Coverage Notice Comment: Last DP export: 08/31/18 2:12 pm Patient Name: OSMAN RIBEIRO Page [id number] at 0904 All edits/amendments must be made on the electronic document DICTATION DATE: 09/01/18902 MUD MIXER HELPER: DONAVAN 09/01/18902 RPT#: [id number] DC DATE:08/31/18 STATUS: DIS IN [facility] [address] [place] [address] END OF REPORT
--- NOTE | 2018-09-01 09:12 | MORECARE ---
CASE MANAGEMENT DISCHARGE SUMMARY PATIENT: OSMAN RIBEIRO UNIT: [id number] ADM DATE: 08/24/18 AGE: 73 : 44 SEX: M ROOM/BED: D.1945 AUTHOR: CHRISTIANO FLANAGAN PHYSICIAN: REFERRING PHYSICIAN: COMPA NAQVI MD DATE OF SERVICE: 09/01/18 Discharge Plan Patient Name: OSMAN RIBEIRO Facility: [facility]:[place] : 1945 Planned Disposition: Home Anticipated Discharge Date: 08/31/18 Discharge Date: 08/31/2018 Expected LOS: 7 Initial Reviewer: [email or web address] Initial Review Date: 08/25/2018 Generated: 09/01/18 10:12 am Comments DCP- Discharge Planning Updated by [id number]: Ely Rivas on 08/31/18 1:[address] Patient Name: SOMAN RIBEIRO Encounter No: [id number] : 1945 Primary Insurance: MEDICARE A & B Anticipated DC Date: Planned Disposition: Home with . Ordered rw from [facility]. Refused HH at this time. External Planned Provider: : DCP follow-up note: CM met with patient and his to discuss dc plan/needs. Plan is to return home with his . He needs a RW with a seat which his will car pick up driver at [employer] tomorrow prior to picking him up from dialysis. He also was asking about a raised toilet seat. Informed them that insurance does not cover raised toilet seats but educated them that they could purchase this item at [employer]. They verbalized understanding and to pick one up for him. He goes to [facility] will be transporting him to and from hd. Discussed home health services with them and his stated he has a appointment with Dr. Craft re his legs/PVD and they would like to wait on the home health till after that appointment next week. JANEE form signed by sharonda for [facility], signed copy left with patient and signed copy placed in patient's chart. will transport the patient home. They denied further dc needs and they both agree dc plan to home is safe. CM will continue to follow and will assist as needed. DC IMM delivered, explained, signed by the patient, and placed in his chart. Signed form also left with patient. Ely Rivas RN, CCM Ely Rivas DCP- Discharge Planning Updated by [id number]: Stephane Navarro on 08/29/18 3:[address] Patient Name: OSMAN RIBEIRO Encounter No: [id number] : 1945 Primary Insurance: MEDICARE A & B Anticipated DC Date: Planned Disposition: Detention Facility External Planned Provider: WAITING PT/FAMILIY DECISION DCP follow-up note: CM SPOKE TO MAGALYS OF INPATIENT REHAB, PT WILL NOT BE ACCEPTED TO REHAB THERAPY HAS SIGNED OFF, PT IS TOO HIGH FUNCTIONING FOR INPATIENT REHAB. CM MET WITH PT'S SPOUSE IN ROOM, PT IN DIALYSIS. CM PROVIDED EXPLAINATION OF REHAB DENIAL. PT'S SPOUSE REPORTS PT CANNOT GET UP OFF THE TOILET AND CANNOT GET UP OFF THE FLOOR IF HE FALLS. PT'S SPOUSE REPORTS SHE CANNOT TAKE PT HOME SHE IS NOT ABLE TO MANAGE HIM WITH HIM BEING SO WEAK. CM DISCUSSED SENDING REFERRAL TO [facility] INPATIENT REHAB BUT WOULD EXPECT THE SAME RESULT AFTER REVIEWING PT'S THERAPY NOTES. CM DISCUSSED [facility] REHAB OPTION. PT'S SPOUSE REPORTS PT WILL NOT GO TO A CARE HOME. CM EXPLAINED THAT HE WOULD BE THERE FOR REHAB AND WOULD BE ON A REHAB [place], NOT IN DIRECTOR MEDICAL SURGICAL CARE. PT'S SPOUSE WILL DISCUSS THIS OPTION WITH PT. CM LEFT HOSPITAL PANTOMIMIST INFORMATION AND CM CONTACT NUMBER. CM INFORMED PT'S SPOUSE THAT SHE CAN SPEAK TO REHAB SCREENER DOWNSTAIRS IF SHE HAS FURTHER QUESTIONS REGARDING WHY PT WILL NOT BE ACCEPTED INTO INPATIENT REHAB AT [facility]. IMPORTANT MESSAGE FROM MEDICARE PROVIDED AND DISCUSSED. CM WAITING PT / FAMILY DECISION REGARDING GOING TO [facility] RE[facility]. PT WAS DECLINED FOR INPATIENT REHAB, SPOUSE REPORTS BEING UNABLE TO CARE FOR PT AT HOME IN HIS CURRENT WEAKENED STATE AND PT DOES NOT WANT TO CONSIDER [facility] FACILITY. CM TO CONTINUE TO FOLLOW AND ASSIST. Stephane Navarro, CASE MANAGEMENT DCP- Discharge Planning Updated by [id number]: Stephane Navarro on 08/26/18 3:[address] Patient Name: OSMAN RIBEIRO Encounter No: [id number] : 1945 Primary Insurance: MEDICARE A & B Anticipated DC Date: Planned Disposition: Inpatient Rehab External Planned Provider: [facility] INPATIENT REH[facility] DCP follow-up note: CM RECEIVED MESSAGE FROM PT'S SPOUSE, THEY WANT INPATIENT REHAB AT [facility]. CM RECEIVED INPATIENT REHAB PRESCREENING ORDER. CM SPOKE TO PT IN ROOM, PT WILL DISCUSS THIS WITH HIS AND IS CONSIDERING REHAB AT [facility]. IMPORTANT MESSAGE FROM MEDICARE PROVIDED AND EXPLAINED. CM WAITING PRESCREEN COMPLETION AND ADMISSION DETERMINATION FROM [facility] INPATIENT REH[facility]. Stephane Navarro,.CASE MANAGMENT DCP- Discharge Planning Updated by [id number]: Sue Alphonso on 08/25/18 1:[address] Patient Name: OSMAN RIBEIRO Admission Status: ER Accout number: [id number] Admission Date: 08-24-2018 : 1945 Admission Diagnosis: Attending: COMPA NAQVI Current LOS: 1 Anticipated DC Date: Planned Disposition: Home Primary Insurance: MEDICARE A & B Discharge Planning Comments: CM met with patient to complete initial dc planning assessment. CM educated patient on the CM role and verbal consent given by patient to complete assessment. CM verified patient's address, phone number, and emergency contact phone numbers. Patient lives at home WITH and reports he is independent in his care. At discharge patient plans to return home and feels this is a safe discharge. CM discussed availability of home health, rehab services, and medical equipment. Patient denied known discharge needs at this time.. PT HAS HD MWF AT [facility] . CM will continue to follow and will assist as needed with dc plans/needs. Framer: Sue Werner DCPIA - Discharge Planning Initial Assessment Updated by [email or web address]: Sue Werner on 08/25/18 2:12 pm * Is the patient Alert and Oriented? Yes * How many steps to enter\exit or inside your home? * PCP EZ * Pharmacy [facility] [address] * Preadmission Environment Home with Family * ADLs Independent * Equipment CPAP * Other Equipment CANE AND WALKER * List name and contact numbers for known caregivers / representatives who currently or will assist patient after discharge: SPOUSE INDER [phone] * Verbal permission to speak to the caregivers and representatives has been obtained from the patient. Yes * Additional services required to return to the preadmission environment? No * Can the patient safely return to the preadmission environment? Yes * Has this patient been hospitalized within the prior 30 days at any hospital? No Coverage Notice Reviewer: [id number] Chuckie Navarro Notice Issued Date-Time: 08/29/2018 16:10 Notice Type: IM Discharge Notice Notice Delivered To: Family Member Relationship to Patient: Spouse Wait Staff Name: INDER RIBEIRO Delivery Method: HAND - Hand Delivered Yen Days: Prior Verbal Notification: Recipient Understood Notice: Yes Recipient Signature: Yes Med Rec Note Co-signed by Attending: Coverage Notice Comment: Reviewer: [email or web address] Chuckie Rivas Notice Issued Date-Time: 08/31/2018 13:20 Notice Type: IM Discharge Notice Notice Delivered To: Patient Relationship to Patient: Wait Staff Name: Delivery Method: HAND - Hand Delivered Yen Days: Prior Verbal Notification: Recipient Understood Notice: Recipient Signature: Med Rec Note Co-signed by Attending: Coverage Notice Comment: Reviewer: [email or web address] Chuckie Navarro Notice Issued Date-Time: 08/26/2018 15:50 Notice Type: IM Discharge Notice Notice Delivered To: Patient Relationship to Patient: Wait Staff Name: Delivery Method: HAND - Hand Delivered Yen Days: Prior Verbal Notification: Recipient Understood Notice: Yes Recipient Signature: Yes Med Rec Note Co-signed by Attending: Coverage Notice Comment: Last DP export: 09/01/18 8:04 am Patient Name: OSMAN RIBEIRO Page [id number] at 0912 All edits/amendments must be made on the electronic document DICTATION DATE: 09/01/18910 DIGITAL SOLUTIONS ARCHITECT: DONAVAN 09/01/18910 RPT#: [id number] DC DATE:08/31/18 STATUS: DIS IN [facility] [address] [place] [address] END OF REPORT
== END 2018-08-31 14:30 | disposition home or self-care (01) | DRG 871 ==
LOC: D.ER 14:36 → D.M2 16:57 → D.SDCHOLD 08-29 16:22 → D.M2 08-29 16:28
PROVIDERS: Family Medicine; Internal Medicine Nephrology; ADMIT Internal Medicine Nephrology; ATTEND Internal Medicine Nephrology
PROC: 5A1D70Z Performance of Urinary Filtration, Intermittent, Less than 6 Hours Per Day (ICD-10-PCS; principal; 2018-08-25)
DX: A41.9 Sepsis, unspecified organism (principal); N18.6 End stage renal disease; I12.0 Hypertensive chronic kidney disease with stage 5 chronic kidney disease or end stage renal disease; N39.0 Urinary tract infection, site not specified; R54 Age-related physical debility; E11.51 Type 2 diabetes mellitus with diabetic peripheral angiopathy without gangrene; E11.22 Type 2 diabetes mellitus with diabetic chronic kidney disease; Z99.2 Dependence on renal dialysis; I77.1 Stricture of artery; I70.201 Unspecified atherosclerosis of native arteries of extremities, right leg

== ENCOUNTER 2018-10-07 09:19 | Outpatient (CLI) | payer MEDICARE, OTHER ==
[~2018-10-07] VITALS: Ht 180.3 cm; Wt 90.9 kg
--- NOTE | ~2018-10-07 | HEMODYNAMI ---
PATIENT:OSMAN RIBEIRO MEDICAL RECORD: [id number] : 43 [id number] ADMISSION DATE: 10/07/18 Generatedon:10/07/201814:57 Patient name: OSMAN RIBEIRO Patient #: [id number] SSN: DO B: 1945 Date of study: 10/07/2018 Page: Of Hemodynamic Procedure Report Patient Data Patient Demographics Procedure consent was obtained First Name: OSMAN Gender: Male Last Name: QUINTIN : 1945 [facility] Initial: KAILYN Age: 73 year(s) Patient #: [id number] Race: Additional ID: [id number] Contact details Address: [address] [place] [address] State: [place] City: [facility] Zip code: [address] Past Medical History Allergies Allergen Reaction Date Comments Reported Other allergy 11/24/2014 aspirin Other allergy 06/24/2017 Other allergy 10/07/2018 lisinopril, ASA, carvedilol, clonidine, shellfish Admission Admission Data Admission Date: 10/07/2018 Admission Time: 9:19 Procedure Procedure Types Cath Procedure Peripheral Cath Diagnostic Procedure Abd/Extremity Extremities Bilat Lower Extremity Procedure Description Procedure Date Procedure Date: 10/07/2018 Procedure Start Time: 13:38 Procedure End Time: 14:57 Procedure Staff Name Function Balaji Craft MD Performing Physician Leela Perkins RN Nurse Heather Galaviz RN Nurse Yury Rivas RT Scrub ANJU ARREOLA RT Monitor Procedure Data Cath Procedure Fluoroscopy Diagnostic fluoroscopy Total fluoroscopy Time: 8 time: 8 min min Diagnostic fluoroscopy Total fluoroscopy dose: 143 dose: 143 mGy mGy Contrast Material Contrast Material Type Amount (ml) Isovue 300 85 Entry Location Entry Primary Successful Side Size Upsize Upsize Entry Closure Succes sful Closure Location (Fr) 1 (Fr) 2 (Fr) Remarks Device Remarks Femoral Right 5 Fr 6 Fr 6 Fr Exoseal artery Long Short Diagnostic catheters Device Type Used For End Catheter Placement Merit Impress KA 2 5Fr 40CM catheter ([id number]) Procedure Medications Medication Administration Route Dosage Heparin Flush Bag added to field 2 bags (1000units/500ml NS) Lidocaine 1% added to field 20 Heparin Bolus I.V. 5000 units Hemodynamics Rest Heart Rate: 86 (bpm) Snapshots Pre Cath Intra NCS Post Cath Vital Signs Time Heart Resp SPO2 etCO2 NIBP (mmHg) Rhythm Pain Sedation Rate (ipm) (%) (mmHg) Status Level (bpm) 12:54:10 77 18 100 17.2 137/81(118) NSR 0 (11) 10(A) , No pain 12:58:24 61 18 100 19.4 133/76(115) NSR 0 (11) 10(A) , No pain 13:02:38 60 13 100 20.2 136/73(114) NSR 0 (11) 10(A) , No pain 13:06:52 52 18 100 17.2 123/75(118) NSR 0 (11) 10(A) , No pain 13:11:02 65 16 100 9.7 120/71(95) NSR 0 (11) 10(A) , No pain 13:15:11 64 19 100 15.7 126/69(96) NSR 0 (11) 10(A) , No pain 13:19:21 68 21 99 18.7 115/73(96) NSR 0 (11) 10(A) , No pain 13:23:29 69 14 97 28.4 115/65(101) NSR 0 (11) 10(A) , No pain 13:27:39 72 18 97 8.9 98/59(87) NSR 0 (11) 10(A) , No pain 13:31:45 59 17 97 10.4 102/56(83) NSR 0 (11) 10(A) , No pain 13:35:51 49 16 98 12.7 94/59(78) NSR 0 (11) 10(A) , No pain 13:39:54 62 15 98 10.4 93/56(73) NSR 0 (11) 10(A) , No pain 13:43:58 66 15 96 10.4 91/53(72) NSR 0 (11) 10(A) , No pain 13:48:02 59 14 94 9.7 89/51(69) NSR 0 (11) 10(A) , No pain 13:52:04 69 14 93 8.2 93/55(69) NSR 0 (11) 10(A) , No pain 13:56:05 66 12 91 11.2 90/57(83) NSR 0 (11) 10(A) , No pain 14:00:05 63 11 91 13.4 103/63(78) NSR 0 (11) 10(A) , No pain 14:04:13 72 10 91 17.2 101/55(79) NSR 0 (11) 10(A) , No pain 14:08:21 72 27 83 2.2 84/54(62) NSR 0 (11) 10(A) , No pain 14:12:22 67 28 87 8.2 86/48(64) NSR 0 (11) 10(A) , No pain 14:16:24 71 10 93 11.2 102/54(69) NSR 0 (11) 10(A) , No pain 14:20:30 73 11 94 11.9 97/59(78) NSR 0 (11) 10(A) , No pain 14:24:33 74 12 96 11.9 97/57(84) NSR 0 (11) 10(A) , No pain 14:28:39 70 12 94 9.7 97/54(80) NSR 0 (11) 10(A) , No pain 14:32:43 52 12 93 2.9 97/59(87) NSR 0 (11) 10(A) , No pain 14:36:47 68 11 92 1.4 96/57(69) NSR 0 (11) 10(A) , No pain 14:40:53 65 36 79 8.9 77/52(65) NSR 0 (11) 10(A) , No pain 14:44:50 70 26 90 8.2 92/56(68) NSR 0 (11) 10(A) , No pain 14:48:50 66 10 95 12.7 103/59(79) NSR 0 (11) 10(A) , No pain 14:52:27 68 11 94 5.9 100/61(84) NSR 0 (11) 10(A) , No pain 14:56:27 96 0 No Cuff NSR 0 (11) 10(A) , No pain Medications Time Medication Route Dose Verified Delivered Reason Notes Effe ctiveness by by 12:56:42 Heparin Flush added 2 Balaji Carpio used for Bag to bags Luana Craft MD procedure (1000units/500ml field RIOS NS) 12:56:54 Lidocaine 1% added 20ml Balaji Balaji for local to vial Luana Craft MD anesthetic field RIOS 14:05:54 Heparin Bolus I.V. 5000 Balaji Romero Per units Guillaume Craft RN physician Procedure Log Time Note 12:44:22 Yury Rob RT (R) (CV) sent for patient. Start room use. 12:44:23 Time tracking: Regular hours (M-F 7:00 - 5:00) 12:44:27 Plan of Care:Hemodynamics will remain stable., Cardiac rhythm will remain stable., Comfort level will be maintained., Respiratory function will remain adequate., Patient/ family verbilizes understanding of procedure., Procedure tolerated without complication., Recovers from procedure without complications.. 12:45:06 Patient received from Outpatients to IR Alert and oriented. Tansferred to table in Supine position. 12:45:07 Signed procedure consent form obtained from patient. 12:45:08 Correct patient and procedure confirmed by team. 12:45:09 ECG and BP/O2 sat monitors applied to patient. 12:45:10 - 12:45:11 - 12:45:36 H&P Date Dictated: 10/07/2018 H&P Addendum completed by physician on day of procedure. (MUST COMPLETE FOR ALL OUTPATIENTS). 12:45:40 Pre-procedure instructions explained to patient. 12:45:40 Pre-op teaching completed and patient verbalized understanding. 12:45:47 Patient NPO since Midnight. 12:46:56 Patient allergic to Other allergylisinopril, ASA, carvedilol, clonidine , shellfish 12:46:59 Is the patient allergic to Iodine/contrast media? No. 12:49:32 Is patient on blood thinner?No 12:49:33 Patient diabetic? Yes. 12:49:34 If diabetic: On Metformin? No 12:49:36 - 12:49:38 ----see anethesia [facility] for pre-sedation anethsthesia assessment.---- 12:50:06 - 12:50:47 IV patent on arrival in left hand with 0.9% NaCl at KVO. 12:50:58 Alarms reviewed by Asha Dan 12:50:58 Alarms reviewed by Asha Dan 12:50:59 Sharps counted by scrub and verified by Everardo 12:51:00 - 12:51:05 Use device set IR Diagnostic 12:51:09 Tegaderm 4 x 4 (1626W) opened to sterile field. 12:51:09 Sterile Angiographic Pack opened to sterile field. 12:51:11 Bag Decanter () opened to sterile field. 12:51:11 ACIST Manifold (77170) opened to sterile field. 12:51:12 ACIST Hand Control (38756) opened to sterile field. 12:51:13 ACIST Syringe (24341) opened to sterile field. 12:51:31 DOC .035 wire (L74241) opened to sterile field. 12:51:57 SHEATH 5FR Whitewood (HLY184) opened to sterile field. 12:51:57 TUBING High Pressure Extension Tubing (Suarez) (KM0085J) opened to sterile field. 12:51:58 MICROPUNCTURE 4FR Cook (H17426) opened to sterile field. 12:53:02 - 12:53:04 Baseline sample Acquired. 12:53:04 Vital chart was started 12:53:05 Full Disclosure recording started 12:53:19 - 12:56:42 Heparin Flush Bag (1000units/500ml NS) 2 bags added to field was administered by Balaji Craft MD; used for procedure; 12:56:54 Lidocaine 1% 20ml vial added to field was administered by Balaji Craft MD; for local anesthetic; 13:22:58 Bilateral groins area was prepped with chlora-prep and draped in steril e fashion 13:23:18 Right Pedal was prepped with chlora-prep and draped in sterile fashion. 13:28:45 GLIDE CATHETER 5FR ANGLED 65cm (CG507) opened to sterile field. 13:29:02 GLIDE WIRE ANGLE 180cm (GW0342) opened to sterile field. 13:29:35 - 13:29:36 Physician arrived 13:31:49 Final Timeout: patient, procedure, and site verified with staff and physician. All members of the team are in agreement. 13:31:49 --------ALL STOP TIME OUT------ 13:32:49 Fire Safety Assessment: A--An alcohol-based skin anteseptic being used preoperatively., C--Open oxygen or nitrous oxide is being used. 13:32:56 4) 15 Cedric reduced kidney function. 13:33:19 Procedure started. 13:38:11 Cordis 5Fr BRITE TIP 11cm sheath opened to sterile field. 13:38:20 Local anesthetic to right femoral artery with Lidocaine 1% by Balaji Craft MD.INITIAL ACCESS ONLY 13:41:17 AVELAR 260 wire (S10761) opened to sterile field. 13:41:19 Access obtained with 4Fr micropunture. 13:42:52 A 5 Fr sheath was inserted into the Right Femoral artery 13:44:43 AMPLATZ Super Stiff 75cm wire ([id number]) opened to sterile field. 13:54:59 A Capillary Technologies KA 2 5Fr 40CM catheter (94382AS1) was advanced over the wire. 13:56:26 GLIDE WIRE ANGLE 180cm (BH1371) opened to sterile field. 13:59:01 TORQUE DEVICE PLASTIC .038 ( TD01) opened to sterile field. 14:02:50 AMPLATZ Super stiff 3mm J 260cm wire ([id number]) opened to sterile field. 14:04:10 CHOICE PT Extra Support J 300cm guide wire (2084137I8) opened to steril e field. 14:05:18 Sheath upsized to a 6 Fr Long. 14:05:35 SHEATH 6FR Whitewood (UQL192) opened to sterile field. 14:05:53 SPIDER EMBOLIC PROTECTION DEVICE 4MM ([id number]) opened to sterile field. 14:05:54 Heparin Bolus 5000 units I.V. was administered by Heather Galaviz RN; Per physician; 14:13:29 [place] 1 Small Atherectomy catheter (H1S) opened to sterile field. 14:22:52 Inflate balloon Inflation number: 1 A IN.PACT Admiral 4 x 80 x 130 DCB Balloon ([id number]) was prepped and advanced across the Undefined1 , then inflated. 14:22:54 INFLATOR BasixTOUCH (FC1094) opened to sterile field. 14:33:17 SHEATH 6FR Brite Tip 35cm (792714E) opened to sterile field. 14:36:27 Sheath upsized to a 6 Fr Short. 14:36:36 EXOSEAL 6Fr (EX600) opened to sterile field. 14:36:37 Sheath removed intact; hemostasis achieved with Exoseal to the Right Femoral artery. 14:38:56 Procedure ended.(Physican Out) 14:40:29 Fluoroscopy time 08.00 minutes. 14:40:35 Fluoroscopy dose: 143 mGy 14:40:35 Flurop Dose total: 143 14:40:40 Contrast amount:Isovue 300 85ml. 14:40:44 Sharps counted by scrub and verified by R.N. 14:40:52 Post-op/insertion site Right Femoral artery dressed using a 4 x 4 and Tegaderm. 14:40:57 Post procedure instruction explained to patient.Patient verbalizes understanding. 14:41:00 Procedure and supply charges have been captured, reviewed, submitted an d are correct. 14:56:30 Vital chart was stopped 14:57:04 Patient transfered to Outpatients with Stretcher. 14:57:08 Procedure ended. 14:57:08 Full Disclosure recording stopped 14:57:12 End room use (Document Last) Intervention Summary Intervention Notes Time ActionType Lesion and Equipment Used Action# Pressure Duration Attributes 14:22:52 Inflate Undefined1 IN.PACT 1 0 00:00 balloon Admiral 4 x 80 x 130 DCB Balloon ([id number]) Device Usage Item Name Manufacture Quantity Catalog Number Hospital Part Current Minimal Lot# / Charge Number Stock Stock Serial# Code Tegaderm 4 x 4 3M 1 1626W 624170 739554 997782 5 (1626W) Sterile Cardinal 1 [id number] 725764 983669 5 Angiographic Health Pack Bag Decanter Microtek 1 537195 59900 328017 5 () Medical Inc. ACIST Manifold Acist 1 93349 796849 463453 816271 5 (92785) Medical Systems Inc ACIST Hand Acist 1 49471 367936 576971 327969 5 Control Medical (13692) Systems Inc ACIST Syringe Acist 1 85671 345282 816150 559129 20 (73883) Medical Systems Inc DOC .035 wire Cook Medical 1 M15746 615643 547726 5 (J98326) SHEATH 5FR Terumo 1 HVF311 244207 785280 590152 5 Whitewood (GIQ953) TUBING High Merit 1 LS0943I 465921 59678 564928 10 Pressure Medical Extension Tubing (Suarez) (AS3539B) MICROPUNCTURE Cook Medical 1 F95893 712538 492168 124527 5 4FR Cook (E23026) GLIDE CATHETER Terumo 1 CG507 907296 244424 5 5FR ANGLED 65cm (CG507) GLIDE WIRE Terumo 2 RL3822 378071 828950 821733 5 ANGLE 180cm (BB8515) Cordis 5Fr Cardinal 1 372188X 219225 473193 5 BRITE TIP 11cm Health sheath AVELAR 260 wire Cook Medical 1 N21980 694663 69839 219794 5 6349596 (Q94841) AMPLATZ Super Austin 1 [id number] 169395 715432 707106 5 [id number] Stiff 75cm Scientific wire ([id number]) Merit Impress Merit 1 61377JI3 356639 592839 5 KA 2 5Fr 40CM Medical catheter (79221RW6) TORQUE DEVICE Austin 1 TD01 073658 824553 338744 5 PLASTIC .038 ( Scientific TD01) AMPLATZ Super Austin 1 [id number] 254157 306580 5 stiff 3mm J Scientific 260cm wire ([id number]) CHOICE PT Austin 1 [id number] 169158 032925 924690 5 11292739 Extra Support Scientific J 300cm guide wire (8307413F0) SHEATH 6FR Terumo 1 PVJ803 333490 465012 529287 40 Whitewood (MCY664) SPIDER EMBOLIC Medtronic 1 WMY0-LK-615-320 898483 244076 5 PROTECTION DEVICE 5MM ([id number]) T[place] 1 Medtronic 1 H1-S 038577 6069742 927107 5 [id number] Small Atherectomy catheter (H1S) IN.PACT Medtronic 1 [id number] 087168 357783 552349 5 [id number] Admiral 4 x 80 x 130 DCB Balloon ([id number]) INFLATOR Merit 1 ZI9022 322604 420694 832742 5 TwitChat Medical (UU4254) SHEATH 6FR Cardinal 1 669362X 409441 654396 549584 1 Brite Tip 35cm Health (960927E) EXOSEAL 6Fr Cardinal 1 EX600 274056 992259 827150 10 (EX600) Health Signature Audit Elrama Stage Time Signature Unsigned Intra-Procedure 10/07/2018 ANJU ARREOLA RT 2:57:29 PM (R) Signatures Monitor : ANJU ARREOLA RT Signature : Date : Time : [address] [place] [address]
[~2018-10-07 09:19] MED LIST changes: +KLONOPIN1 MG PO
[2018-10-07 09:41] LABS: BASOPHILS 0.5 % (0-2); EOSINOPHILS 1.3 % (0-7); HEMATOCRIT 35.2 % (42.0-54.0); HEMOGLOBIN 11.3 g/dL (13.5-17.5); LYMPHOCYTES 8.4 % (15-50); MCH 26.4 pg (26.0-34.0); MCHC 32.1 g/dL (31.0-37.0); MCV 82.2 fL (80.0-100.0); MEAN PLATELET VOLUME 9.9 fL (7.4-10.4); MONOCYTES 9.9 % (2-11); NEUTROPHILS 79.9 % (40-80); RBC 4.28 10x6/uL (4.20-6.10); RDW 16.4 % (11.5-14.5); WBC 5.6 10x3/uL (4.8-10.8)
[2018-10-07 09:50] LABS: ANION GAP 18.2 mmol/L (8-16); CALCIUM 9.1 mg/dL (8.5-10.1); CARBON DIOXIDE 27.4 mmol/L (21.0-32.0); CREATININE - SERUM 3.2 mg/dL (0.6-1.3); POTASSIUM - SERUM 3.6 mmol/L (3.5-5.1)
[2018-10-07 09:51] LABS: APTT 38.3 SECONDS (22.8-39.4); INR 1.41 (0.85-1.17); PROTIME 16.7 SECONDS (11.6-15.0)
[2018-10-07 10:16] LABS: PLATELET COUNT 244 10x3/uL (130-400)
[2018-10-07 11:50] VITALS: BP 111/80; Ht 180.3 cm; Wt 90.9 kg
--- NOTE | 2018-10-07 15:37 | NUR ---
1523 SEE POST TRANSFUSION SHEET FOR VITAL SIGN TRENDS
== END 2018-10-07 18:20 | disposition home or self-care (01) ==
LOC: D.SP 09:19 → D.RAD 13:00 → D.SP 18:20
PROVIDERS: ATTEND General Practice
DX: E11.51 Type 2 diabetes mellitus with diabetic peripheral angiopathy without gangrene (principal); I70.239 Atherosclerosis of native arteries of right leg with ulceration of unspecified site; L97.919 Non-pressure chronic ulcer of unspecified part of right lower leg with unspecified severity; Z01.812 Encounter for preprocedural laboratory examination

== ENCOUNTER 2018-12-02 10:34 | Outpatient (CLI) | payer MEDICARE, OTHER ==
--- NOTE | 2018-12-01 09:47 | NUR ---
CALLED PT NPO AFTER MN, NO BLOOD THINNERS OK FOR ASA. MUST HAVE A LEATHER GOODS I ASSEMBLER. BE HERE AT 1030 PROCEDURE AT 1300. NO QUESTIONS NOTED.
[~2018-12-02] VITALS: Ht 180.3 cm; Wt 89.1 kg
--- NOTE | ~2018-12-02 | HEMODYNAMI ---
PATIENT:OSMAN RIBEIRO MEDICAL RECORD: [id number] : 43 [id number] ADMISSION DATE: 12/02/18 Generatedon:12/02/201816:02 Patient name: OSMAN RIBEIRO Patient #: [id number] SSN: DO B: 1945 Date of study: 12/02/2018 Page: Of Hemodynamic Procedure Report Patient Data Patient Demographics Procedure consent was obtained First Name: OSMAN Gender: Male Last Name: QUINTIN : 1945 [facility] Initial: KAILYN Age: 73 year(s) Patient #: [id number] Race: Additional ID: [id number] Contact details [address]: [address] [place] [address] State: [place] City: [facility] Zip code: [address] Past Medical History Allergies Allergen Reaction Date Comments Reported Other allergy 11/24/2014 aspirin Other allergy 06/24/2017 Other allergy 10/07/2018 lisinopril, ASA, carvedilol, clonidine, shellfish Admission Admission Data Admission Date: 12/02/2018 Admission Time: 10:34 Procedure Procedure Types Cath Procedure Peripheral Cath Diagnostic Procedure Abd/Extremity Extremities Left Lower Ext Arterio Procedure Description Procedure Date Procedure Date: 12/02/2018 Procedure Start Time: 13:36 Procedure Staff Name Function Yury Rivas RT Monitor Samina Leiva HAND CEMENTER Additional personnel Balaji Craft MD Performing Physician Heather Galaviz RN Nurse Leela Perkins RN Nurse ANJU ARREOLA RT Scrub Jennyfer King RT Manager Community Development Procedure Data Cath Procedure Fluoroscopy Diagnostic fluoroscopy Total fluoroscopy Time: time: 24.9 min 24.9 min Diagnostic fluoroscopy Total fluoroscopy dose: 647 dose: 647 mGy mGy Contrast Material Contrast Material Type Amount (ml) Isovue 300 150 Entry Location Entry Primary Successful Side Size Upsize Upsize Entry Closure Succ essful Closure Location (Fr) 1 (Fr) 2 (Fr) Remarks Device Remarks Femoral Angio-VIP artery 6Fr Procedure Medications Medication Administration Route Dosage Heparin Flush Bag added to field 2 bags (1000units/500ml NS) Lidocaine 1% added to field 20 Heparin Bolus I.V. 5000 units Heparin Bolus I.V. 1000 units Nitroglycerin IC/IA I.A. 300 mcg Hemodynamics Rest Heart Rate: 61 (bpm) Snapshots Pre Cath Intra NCS Post Cath Vital Signs Time Heart Resp SPO2 etCO2 NIBP (mmHg) Rhythm Pain Sedation Rate (ipm) (%) (mmHg) Status Level (bpm) 13:21:12 61 14 100 0 158/73(117) NSR 0 (11) 10(A) , No pain 13:25:34 61 15 100 21.8 143/71(110) NSR 0 (11) 10(A) , No pain 13:29:56 60 16 96 6 109/57(90) NSR 0 (11) 10(A) , No pain 13:34:06 61 16 100 15 110/58(89) NSR 0 (11) 10(A) , No pain 13:38:16 67 14 100 1.5 118/59(95) NSR 0 (11) 10(A) , No pain 13:42:28 60 13 100 1.5 114/61(96) NSR 0 (11) 10(A) , No pain 13:46:38 60 15 100 0.7 117/60(93) NSR 0 (11) 10(A) , No pain 13:50:49 60 15 100 12 114/57(91) NSR 0 (11) 10(A) , No pain 13:54:59 63 12 100 0.7 117/60(93) NSR 0 (11) 10(A) , No pain 13:59:11 68 15 100 12.7 105/60(82) NSR 0 (11) 10(A) , No pain 14:03:17 61 13 100 3.7 111/62(89) NSR 0 (11) 10(A) , No pain 14:07:29 60 14 99 21.8 109/53(87) NSR 0 (11) 10(A) , No pain 14:11:39 60 12 99 9 105/54(83) NSR 0 (11) 10(A) , No pain 14:15:49 60 12 99 3 110/52(83) NSR 0 (11) 10(A) , No pain 14:19:59 60 11 99 0 105/56(84) NSR 0 (11) 10(A) , No pain 14:24:08 60 12 99 1.5 112/52(83) NSR 0 (11) 10(A) , No pain 14:28:18 60 12 99 4.5 109/59(92) NSR 0 (11) 10(A) , No pain 14:32:26 60 12 99 6 112/61(90) NSR 0 (11) 10(A) , No pain 14:36:38 60 11 99 9.7 103/53(82) NSR 0 (11) 10(A) , No pain 14:40:45 62 12 99 9 105/60(86) NSR 0 (11) 10(A) , No pain 14:44:51 61 12 99 8.2 107/59(88) NSR 0 (11) 10(A) , No pain 14:49:01 60 12 99 8.2 111/54(83) NSR 0 () 10(A) , No pain 14:53:11 60 11 98 1.5 111/55(86) NSR 0 () 10(A) , No pain 14:57:19 60 12 99 6 111/63(83) NSR 0 () 10(A) , No pain 15:01:27 60 12 99 0 111/65(89) NSR 0 () 10(A) , No pain 15:05:37 60 12 99 0.7 115/59(90) NSR 0 (11) 10(A) , No pain 15:09:47 60 12 99 0 114/60(97) NSR 0 (11) 10(A) , No pain 15:13:56 60 12 99 0 111/63(93) NSR 0 (11) 10(A) , No pain 15:18:06 60 12 99 0 99/57(75) NSR 0 (11) 10(A) , No pain 15:22:14 60 12 99 11.2 103/52(81) NSR 0 (11) 10(A) , No pain 15:26:18 62 11 100 0 111/63(93) NSR 0 (11) 10(A) , No pain 15:30:28 60 12 100 0 114/59(89) NSR 0 (11) 10(A) , No pain 15:34:40 60 12 100 15 106/57(87) NSR 0 (11) 10(A) , No pain 15:38:45 60 12 100 0.7 114/65(94) NSR 0 (11) 10(A) , No pain 15:42:53 60 12 100 23.3 116/65(92) NSR 0 (11) 10(A) , No pain 15:47:01 60 12 100 4.5 120/68(90) NSR 0 (11) 10(A) , No pain 15:51:15 60 12 100 0 112/57(87) NSR 0 (11) 10(A) , No pain 15:55:23 60 12 100 21 113/63(93) NSR 0 (11) 10(A) , No pain 15:59:31 60 11 100 23.3 114/65(96) NSR 0 (11) 10(A) , No pain Medications Time Medication Route Dose Verified Delivered Reason Notes Effe ctiveness by by 13:04:37 Heparin Flush added 2 Balaji Carpio used for Bag to bags Luana Craft MD procedure (1000units/500ml field RIOS NS) 13:04:51 Lidocaine 1% added 20ml Balaji Carpio for local to vial Luana Craft MD anesthetic field 14:33:25 Heparin Bolus I.V. 5000 Balaji Romero Per units Guillaume Craft RN physician 15:15:31 Heparin Bolus I.V. 1000 Balaji Romero Per units Guillaume Craft RN physician 15:19:46 Nitroglycerin I.A. 300 Balaji Carpio Per IC/IA mcg Luana Craft MD physician Procedure Log Time Note 13:04:37 Heparin Flush Bag (1000units/500ml NS) 2 bags added to field was administered by Balaji Craft MD; used for procedure; Verbal order read back and verified. 13:04:51 Lidocaine 1% 20ml vial added to field was administered by Balaji Craft MD; for local anesthetic; Verbal order read back and verified. 13:05:25 Heather Galaviz RN sent for patient. Start room use. 13:05:26 Time tracking: Regular hours (M-F 7:00 - 5:00) 13:05:45 Patient received from Outpatients to IR Alert and oriented. Tansferred to table in Supine position. 13:05:46 Signed procedure consent form obtained from patient. 13:05:47 Warm blankets applied, and gabriella hugger turned on for patient comfort. 13:05:48 Correct patient and procedure confirmed by team. 13:05:49 ECG and BP/O2 sat monitors applied to patient. 13:05:50 - 13:05:54 Samina Leiva CRNA present and monitoring patient for TIVA. 13:06:02 H&P Date Dictated: 12/02/2018 H&P Addendum completed by physician on day of procedure. (MUST COMPLETE FOR ALL OUTPATIENTS). 13:06:04 Pre-op teaching completed and patient verbalized understanding. 13:06:04 Pre-procedure instructions explained to patient. 13:06:07 Patient NPO since Midnight. 13:06:47 - 13:08:31 SEE ANESTHESIA NOTE FOR PRE PROCEDURE ANESTHESIA 13:08:32 - 13:08:43 Use device set IR Diagnostic 13:08:44 ACIST Syringe (01592) opened to sterile field. 13:08:45 Bag Decanter () opened to sterile field. 13:08:45 ACIST Manifold (66774) opened to sterile field. 13:08:45 ACIST Hand Control (24945) opened to sterile field. 13:08:46 Tegaderm 4 x 4 (1626W) opened to sterile field. 13:08:46 Sterile Angiographic Pack opened to sterile field. 13:09:09 Alarms reviewed by R. N. 13:09:10 Sharps counted by scrub and verified by R.N. 13:09:25 Left groin area was prepped with chlora-prep and draped in sterile fashion 13:19:58 Vital chart was started 13:21:55 Baseline sample Acquired. 13:32:02 Baseline sample Acquired. 13:34:54 --------ALL STOP TIME OUT------ 13:34:54 Physician arrived 13:34:55 Final Timeout: patient, procedure, and site verified with staff and physician. All members of the team are in agreement. 13:34:57 Left groin site verified by team. 13:35:00 Fire Safety Assessment: A--An alcohol-based skin anteseptic being used preoperatively., C--Open oxygen or nitrous oxide is being used. 13:35:39 4) 15-29 Severley reduced kidney function. 13:35:56 Maximum allowable contrast dose (3.7 X eGFR X 0.75)78 ml. 13:36:11 Sedation plan: TIVA Medication:Propofol 13:36:49 Full Disclosure recording started 13:36:49 Procedure started. 13:36:56 Local anesthetic to left femerol artery with Lidocaine 1% by Balaji Craft MD.INITIAL ACCESS ONLY 13:40:13 Access obtained with 4Fr micropunture. 13:40:23 Micropuncture VSI 4FR kit opened to sterile field. 13:40:24 Cordis 5Fr BRITE TIP 11cm sheath opened to sterile field. 13:40:33 TUBING Contrast Injection High Pressure (BPG347W) opened to sterile field. 13:40:35 DOC .035 wire (V66084) opened to sterile field. 14:03:37 Right groin area was prepped with chlora-prep and draped in sterile fashion 14:03:51 Local anesthetic to right femoral artery with Lidocaine 1% by Balaji Craft MD.ADDITIONAL ACCESS 14:04:27 AVELAR 260 wire (B77042) opened to sterile field. 14:04:57 GLIDE CATHETER 5FR ANGLED 65cm (CG507) opened to sterile field. 14:06:10 Angiodynamics Omniflush 5Fr 65cm (82943407) opened to sterile field. 14:06:11 AMPLATZ Super Stiff 75cm wire ([id number]) opened to sterile field. 14:11:39 GLIDE WIRE ANGLE 180cm (FE8476) opened to sterile field. 14:11:48 TORQUE DEVICE PLASTIC .038 ( TD01) opened to sterile field. 14:25:15 INFLATOR BasixTOUCH (WJ3230) opened to sterile field. 14:27:09 CHOICE PT Extra Support J 300cm guide wire ([id number]) opened to steril e field. 14:32:15 CXI SUPPORT .035 135 CM STR catheter (R56711) opened to sterile field. 14:32:24 SPIDER EMBOLIC PROTECTION DEVICE 3MM ([id number]) opened to sterile field. 14:33:25 Heparin Bolus 5000 units I.V. was administered by Heather Galaviz RN; Per physician; Verbal order read back and verified. 14:34:02 GLIDE WIRE ANGLE 260cm (GM0668) opened to sterile field. 14:41:15 Hawkone Medium Atherectomy System (H1-M) opened to sterile field. 15:10:23 Inflate balloon Inflation number: 1 A INPACT ADMIRAL 5 X 200 ([id number]) was prepped and advanced across the Mid Superficial Femoral, Left , then inflated to 0 JUD for 2:23 (min:sec) . 15:12:33 SHEATH 6FR Beach (QXD055) opened to sterile field. 15:15:31 Heparin Bolus 1000 units I.V. was administered by Heather Galaviz RN; Per physician; Verbal order read back and verified. 15:19:46 Nitroglycerin IC/IA 300 mcg I.A. was administered by Balaji Craft MD; Pe r physician; Verbal order read back and verified. 15:24:55 CHOICE PT Extra Support J 300cm guide wire ([id number]) opened to steril e field. 15:25:49 Inflate balloon Inflation number: 1 A CHOCOLATE 2.5 x 40 x 150 balloon ([id number]) was prepped and advanced across the Undefined lesion 1 on undefined graft 1 , then inflated. . 15:33:13 COPILOT Valve Control (7273282) opened to sterile field. 15:34:03 Inflate balloon Inflation number: 2 A [place] Plus 2 x 4 x 130 Balloon ([id number]) was prepped and advanced across the Undefined lesion 1 on undefined graft 1 , then inflated . 15:37:57 Inflate balloon Inflation number: 3 A NANOCROSS ELITE 2MM X 40 X 150 ([id number]) was prepped and advanced across the Undefined lesion 1 on undefined graft 1 , then inflated. 15:46:32 ANGIOSEAL-VIP PLUS 6 FR opened to sterile field. 15:47:04 Sheath removed intact; hemostasis achieved with Angio-VIP 6Fr to the Femoral artery. 15:47:04 A sheath was inserted into the Femoral artery 15:47:09 Procedure ended.(Physican Out) 15:47:41 Fluoroscopy time 24.90 minutes. 15:47:47 Fluoroscopy dose: 647 mGy 15:47:47 Flurop Dose total: 647 15:47:55 Contrast amount:Isovue 300 150ml. 15:47:57 Procedure and supply charges have been captured, reviewed, submitted an d are correct. 16:00:26 Post Procedure Pulses reassessed and unchanged 16:00:36 Full Disclosure recording stopped Intervention Summary Intervention Notes Time ActionType Lesion and Equipment Used Action# Pressure Duration Attributes 15:10:23 Inflate Mid INPACT ADMIRAL 5 1 0 02:23 balloon Superficial X 200 Femoral, ([id number]) Left 15:25:49 Inflate Undefined CHOCOLATE 2.5 x 1 0 00:00 balloon lesion 1 on 40 x 150 balloon undefined ([id number]) graft 1 15:34:03 Inflate Undefined [place] Plus 2 x 2 0 00:00 balloon lesion 1 on 4 x 130 Balloon undefined ([id number]) graft 1 15:37:57 Inflate Undefined NANOCROSS ELITE 3 0 00:00 balloon lesion 1 on 2MM X 80 X 150 undefined ([id number]) graft 1 Device Usage Item Name Manufacture Quantity Catalog Number Hospital Part Cur rent Minimal Lot# / Charge Number Stock Stock Serial# Code ACIST Syringe Acist Medical 1 78410 653558 811370 987 419 20 (44221) Systems Inc ACIST Hand Acist Medical 1 27271 440385 456184 987 848 5 Control (17125) Systems Inc ACIST Manifold Acist Medical 1 41688 117882 091183 987 865 5 (28323) Systems Inc Bag Decanter Microtek 1 2001S 345535 80986 985 919 5 (2001S) Medical Inc. Sterile Cardinal 1 [id number] 329166 998 083 5 Angiographic Pack Health Tegaderm 4 x 4 3M 1 1626W 789834 266607 991 343 5 (1626W) Micropuncture VSI VSI VASCULAR 1 7266V 938196 999 252 5 4FR kit SOLUTIONS Cordis 5Fr BRITE Cardinal 1 336188F 654763 999 965 5 TIP 11cm sheath Health TUBING Contrast [facility] 1 YZH761P 069676 281005 999 396 5 Injection High Pressure (FYG593X) DOC .035 wire UMicIt 1 M95510 053251 999 434 5 (O26291) AVELAR 260 wire Jounce [employer]rapeutics [facility] 1 Q84807 629263 48826 999 521 5 (G55865) GLIDE CATHETER Terumo 1 CG507 490785 999 667 5 5FR ANGLED 65cm (CG507) Angiodynamics Angiodynamics 1 67917288 462694 107614 999 924 5 Omniflush 5Fr 65cm (58617112) AMPLATZ Super Sullivan 1 [id number] 795303 635748 999 869 5 [id number] Stiff 75cm wire Scientific ([id number]) GLIDE WIRE ANGLE Terumo 1 HR1960 899392 519899 999 568 5 180cm (FR7497) TORQUE DEVICE Sullivan 1 TD01 641139 661793 999 272 5 PLASTIC .038 ( Scientific TD01) INFLATOR [facility] 1 VV2367 500916 524278 999 717 5 BasixTOUCH (TF7130) CHOICE PT Extra Sullivan 2 [id number] 831239 610205 998 924 5 17991557 Support J 300cm Scientific [id number] guide wire ([id number]) CXI SUPPORT .035 UMicIt 1 U08169 432753 156883 999 809 5 [id number] 135 CM STR catheter (K07810) SPIDER EMBOLIC Medtronic 1 [id number]-GI-597-320 460172 999 977 5 PROTECTION DEVICE 3MM ([id number]) GLIDE WIRE ANGLE Terumo 1 EW4978 221548 906544 999 455 5 260cm (HC9771) Hawkone Medium Medtronic 1 H1-M 945447 999 98664 5 [id number] Atherectomy System (H1-M) INPACT ADMIRAL 5 Medtronic 1 [id number] 413233 1223099 999 998 1 X 200 ([id number]) SHEATH 6FR Terumo 1 WEL517 542556 174264 995 393 40 Beach (GAA920) CHOCOLATE 2.5 x Medtronic 1 [id number] O 303748 918177 999 996 5 40 x 150 balloon TW ([id number]) COPILOT Valve Rich 1 9584935 788269 719445 999 768 5 Control (5441293) Vascular [place] Plus 2 x Medtronic 1 [id number] 383186 660781 999 995 5 4 x 130 Balloon ([id number]) NANOCROSS ELITE Medtronic 1 [id number] 336124 999 996 1 2MM X 80 X 150 ([id number]) ANGIOSEAL-VIP [facility] 1 486859 071556 688069 999 857 5 PLUS 6 FR Signature Audit [place] Stage Time Signature Unsigned Intra-Procedure 12/02/2018 Jennyfer King 4:02:42 PM RT(R) [id number] [place] [address]
[2018-12-02 10:53] LABS: BASOPHILS 0.5 % (0-2); EOSINOPHILS 1.2 % (0-7); HEMATOCRIT 34.2 % (42.0-54.0); HEMOGLOBIN 10.6 g/dL (13.5-17.5); IMMATURE GRANULOCYTES 0.2 % (0-5); LYMPHOCYTES 7.9 % (15-50); MCV 87.2 fL (80.0-100.0); MEAN PLATELET VOLUME 9.9 fL (7.4-10.4); MONOCYTES 8.4 % (2-11); NEUTROPHILS 81.8 % (40-80); PLATELET COUNT 194 10x3/uL (130-400); RBC 3.92 10x6/uL (4.20-6.10); RDW 17.5 % (11.5-14.5); WBC 4.2 10x3/uL (4.8-10.8)
[2018-12-02 11:06] LABS: INR 1.38 (0.85-1.17); PROTIME 16.4 SECONDS (11.6-15.0)
[2018-12-02 11:07] LABS: APTT 46.1 SECONDS (22.8-39.4)
[2018-12-02 11:09] LABS: ANION GAP 12.9 mmol/L (8-16); CALCIUM 8.7 mg/dL (8.5-10.1); CARBON DIOXIDE 31.1 mmol/L (21.0-32.0); CREATININE - SERUM 2.4 mg/dL (0.6-1.3)
[2018-12-02] MEDS ORDERED: PLAVIX75 MG PO (11:10)
[2018-12-02 11:23] VITALS: BP 119/60; Ht 180.3 cm; Wt 89.1 kg
--- NOTE | 2018-12-02 11:34 | NUR ---
ATTEMPTED TO CALL SPECIALS AT THIS TIME REGARDING K+ OF 3.0, NO ANSWER AT THIS TIME, NOTE LEFT ON CHART, WILL ATTEMPT AGAIN. BIKE ASSEMBLER CALLED AT THIS TIME REGARDING BEHAVIORAL HEALTH CONSULT.
--- NOTE | 2018-12-02 11:40 | NUR ---
DR. CLAYTON NOTIFIED AND REVIEWED PT'S BEHAVIOR AND ASSESSMENT RESULTS. PT IS A LOW RISK PER DR. CLAYTON. DR. CLAYTON STATED TO GIVE RESOURCES TO PT AT TIME OF DISCHARGE. NO FURTHER ORDERS AT THSI TIME. RESOURCES REVIEWED WITH PT AND HE VERBALIZED UNDERSTANDING.
--- NOTE | 2018-12-02 16:52 | NUR ---
3358 SEE POST PROCEDURE CHECKLIST FOR VITAL SIGN TRENDS.
--- NOTE | 2018-12-02 16:57 | NUR ---
1645 VOIDS 100CC QUINTIN URINE IN URINAL. RENAL ADA FINGER FOOD DIET SERVED. HOB ELEVATED TO 30 DEGREES.
== END 2018-12-02 18:40 | disposition home or self-care (01) ==
LOC: D.SP 10:34 → D.RAD 13:00 → D.SP 18:40
PROVIDERS: ATTEND General Practice
DX: I70.212 Atherosclerosis of native arteries of extremities with intermittent claudication, left leg (principal)

== ENCOUNTER → 2019-01-26 09:41 | Outpatient (CLI) | payer MEDICARE, OTHER ==
[2018-12-02 11:23] VITALS: BMI 27.4
== END | disposition home or self-care (01) ==
LOC: D.RAD 09:41
PROVIDERS: ATTEND Internal Medicine Nephrology
DX: R52 Pain, unspecified (principal); W19.XXXA Unspecified fall, initial encounter

== ENCOUNTER → 2019-02-03 12:33 | Outpatient (CLI) | payer MEDICARE, OTHER ==
[2018-12-02 11:23] VITALS: BMI 27.4
== END | disposition home or self-care (01) ==
LOC: D.MRI 12:33
PROVIDERS: ATTEND Internal Medicine Nephrology
DX: M25.551 Pain in right hip (principal); R93.7 Abnormal findings on diagnostic imaging of other parts of musculoskeletal system

== ENCOUNTER 2019-08-31 09:48 | Inpatient (IN) | payer MEDICARE, OTHER ==
[~2019-08-31] VITALS: Ht 180.3 cm; Wt 86.1 kg
[2019-08-31 10:52] LABS: BASOPHILS 0.6 % (0-2); HEMATOCRIT 20.7 % (42.0-54.0); LYMPHOCYTES 12.5 % (15-50); MCH 24.7 pg (26.0-34.0); MCHC 29.5 g/dL (31.0-37.0); MCV 83.8 fL (80.0-100.0); MEAN PLATELET VOLUME 9.9 fL (7.4-10.4); MONOCYTES 12.2 % (2-11); NEUTROPHILS 72.7 % (40-80); PLATELET COUNT 227 10x3/uL (130-400); RBC 2.47 10x6/uL (4.20-6.10); RDW 19.8 % (11.5-14.5); WBC 3.4 10x3/uL (4.8-10.8)
[2019-08-31 11:00] VITALS: BP 109/46
[2019-08-31] MEDS ORDERED: EFFEXOR37.5 MG PO (11:00)
[2019-08-31 11:05] LABS: ANION GAP 12.7 mmol/L (8-16); CALCIUM 8.5 mg/dL (8.5-10.1); CARBON DIOXIDE 27.4 mmol/L (21.0-32.0); CREATININE - SERUM 2.9 mg/dL (0.6-1.3); POTASSIUM - SERUM 3.1 mmol/L (3.5-5.1)
[2019-08-31 11:07] LABS: APTT 52.1 SECONDS (22.8-39.4); HEMOGLOBIN 6.1 g/dL (13.5-17.5); INR 1.34 (0.85-1.17); PROTIME 16.5 SECONDS (11.6-15.0)
--- NOTE | 2019-08-31 11:10 | NUR ---
CRITICAL LAB HGB REPORTED TO DR HINOJOSA
[2019-08-31 11:11] LABS: ALBUMIN 3.1 g/dL (3.4-5.0); BILIRUBIN - TOTAL 0.76 mg/dL (0.2-1.3); PROTEIN - SERUM 6.4 g/dL (6.4-8.2)
--- NOTE | 2019-08-31 11:47 | NUR ---
BLOOD TRANSFUSION PROCEDURE EXPL TO PT AND S/O. VERB UNDER. CONSENT SIGNED/WITNESSED
[2019-08-31 12:15] VITALS: BP 114/46
--- NOTE | 2019-08-31 12:15 | NUR ---
BLOOD TRANSFUSION INITIATED, SEE PAPER DOCUMENTATION
--- NOTE | 2019-08-31 14:02 | NUR ---
ATTEMPTED TO CALL REPORT, NURSE UNAVAILABLE
--- NOTE | 2019-08-31 14:18 | NUR ---
REPORT TO ASIM BARRAZA
[2019-08-31 14:20] VITALS: BP 112/49
[2019-08-31] MEDS ORDERED: DEXILANT60 MG PO (14:55)
[2019-08-31] MEDS ORDERED: SYNTHROID75 MCG PO (14:55)
[2019-08-31] MEDS ORDERED: TUMS PO ×3 (14:59→15:01)
[2019-08-31 15:48] LABS: BASOPHILS 0.9 % (0-2); EOSINOPHILS 1.8 % (0-7); LYMPHOCYTES 15.8 % (15-50); MCH 24.6 pg (26.0-34.0); MCHC 29.6 g/dL (31.0-37.0); MEAN PLATELET VOLUME 9.9 fL (7.4-10.4); MONOCYTES 11.7 % (2-11); NEUTROPHILS 69.8 % (40-80); PLATELET COUNT 209 10x3/uL (130-400); RBC 2.89 10x6/uL (4.20-6.10); WBC 3.4 10x3/uL (4.8-10.8)
[2019-08-31 16:13] LABS: HEMOGLOBIN 7.1 g/dL (13.5-17.5)
[2019-08-31 16:50] VITALS: BP 115/49
[2019-08-31 18:29] VITALS: BP 115/49; BMI 26.8
--- NOTE | 2019-08-31 19:24 | NUR ---
FINISHING UP 2ND UNIT OF BLOOD PT CO DRY MOUTH ONE ICE CHIP GIVEN BED LOW AND LOCKED CALL LIGHT WITH PT
[2019-08-31 20:00] VITALS: BP 107/59
[2019-08-31 21:22] LABS: BASOPHILS 0.7 % (0-2); EOSINOPHILS 2.6 % (0-7); HEMATOCRIT 26.9 % (42.0-54.0); HEMOGLOBIN 8.1 g/dL (13.5-17.5); LYMPHOCYTES 13.4 % (15-50); MCH 25.2 pg (26.0-34.0); MCHC 30.1 g/dL (31.0-37.0); MCV 83.5 fL (80.0-100.0); MEAN PLATELET VOLUME 9.5 fL (7.4-10.4); MONOCYTES 12.7 % (2-11); NEUTROPHILS 70.6 % (40-80); PLATELET COUNT 180 10x3/uL (130-400); RBC 3.22 10x6/uL (4.20-6.10); WBC 3.1 10x3/uL (4.8-10.8)
[2019-09-01] VITALS: BP 106/52
[2019-09-01 03:23] LABS: BASOPHILS 1.2 % (0-2); EOSINOPHILS 2.9 % (0-7); HEMATOCRIT 27.5 % (42.0-54.0); HEMOGLOBIN 8.4 g/dL (13.5-17.5); IMMATURE GRANULOCYTES 0.3 % (0-5); LYMPHOCYTES 14.2 % (15-50); MCH 25.5 pg (26.0-34.0); MCHC 30.5 g/dL (31.0-37.0); MCV 83.3 fL (80.0-100.0); MONOCYTES 10.6 % (2-11); NEUTROPHILS 70.8 % (40-80); PLATELET COUNT 201 10x3/uL (130-400); RDW 19.2 % (11.5-14.5); WBC 3.4 10x3/uL (4.8-10.8)
[2019-09-01 03:44] LABS: ALBUMIN 2.8 g/dL (3.4-5.0); ANION GAP 14.3 mmol/L (8-16); BILIRUBIN - TOTAL 1.01 mg/dL (0.2-1.3); CALCIUM 8.6 mg/dL (8.5-10.1); CARBON DIOXIDE 25.9 mmol/L (21.0-32.0); CREATININE - SERUM 3.6 mg/dL (0.6-1.3); POTASSIUM - SERUM 3.2 mmol/L (3.5-5.1)
[2019-09-01 04:00] VITALS: BP 162/60
--- NOTE | 2019-09-01 06:23 | NUR ---
I have reviewed this patient and I concur with the Shift Assessment completed by the Licensed Practical Nurse today this shift.
--- NOTE | 2019-09-01 07:00 | NUR ---
RECEIVED REPORT. ASSUMED CARE OF PATIENT. CALL LIGHT WITHIN REACH. PATIENT RESTING WITH EYES CLOSED. WHITE BOARD UPDATED. BEDSIDE SHIFT REPORT COMPLETE. PATIENT REMAINS NPO FOR EGD TODAY. NO DISTRESS.
[2019-09-01 09:42] VITALS: BP 101/62
--- NOTE | 2019-09-01 09:45 | NUR ---
PATIENT LEFT UNIT VIA BED FOR EGD AT THIS TIME.
--- NOTE | 2019-09-01 10:04 | NUR ---
PT FAMILY HERE AND THOUGHT PROCEDURE WAS AT 1530. CALLED OUTPT AND INFORMED TO HAVE PATIENT FAMILY WAIT IN ROOM AND WILL CALL AFTER EDG IS COMPLETE.
--- NOTE | 2019-09-01 10:48 | NUR ---
RECEIVED REPORT FROM SONYA IN GI. PATIENT BACK TO UNIT SOON.
--- NOTE | 2019-09-01 11:07 | NUR ---
BACK TO UNIT, BP 116/54, HR 100. FAMILY AT BEDSIDE. PATIENT AWAKE AND ASKING TO EAT. NO DISTRESS.
--- NOTE | 2019-09-01 12:30 | NUR ---
PATIENT CONSUMED NOON MEAL WITHOUT DIFFICULTY. DENIES NEEDS. NO DISTRESS. PATIENT SPOUSE AT BEDSIDE.
[2019-09-01 13:32] VITALS: Ht 180.3 cm; Wt 86.1 kg
[2019-09-01 14:51] VITALS: BP 131/66
[2019-09-01 15:44] LABS: BASOPHILS 0.6 % (0-2); EOSINOPHILS 2.2 % (0-7); HEMATOCRIT 30.6 % (42.0-54.0); HEMOGLOBIN 9.5 g/dL (13.5-17.5); IMMATURE GRANULOCYTES 0.2 % (0-5); LYMPHOCYTES 9.3 % (15-50); MCH 25.9 pg (26.0-34.0); MCV 83.4 fL (80.0-100.0); MEAN PLATELET VOLUME 10.4 fL (7.4-10.4); MONOCYTES 12.5 % (2-11); NEUTROPHILS 75.2 % (40-80); PLATELET COUNT 198 10x3/uL (130-400); RBC 3.67 10x6/uL (4.20-6.10); RDW 19.5 % (11.5-14.5)
[2019-09-01 15:46] LABS: WBC 5.1 10x3/uL (4.8-10.8)
--- NOTE | 2019-09-01 17:30 | NUR ---
PATIENT AWAKE, ASSISTED OOB TO URINATE. NO DISTRESS. CALL LIGHT WITHIN REACH AFTER PATIENT RETURNED TO BED. PATIENT SPOUSE LEAVING FOR THE EVENING.
--- NOTE | 2019-09-01 19:09 | NUR ---
AT REST WITH EYES CLOSED AROUSES EASILY AND DENIES NEEDS AT THIS TIME BED LOW AND LOCKED
[2019-09-01 20:00] VITALS: BP 114/56
[2019-09-02 04:00] VITALS: BP 139/87
[2019-09-02 06:44] LABS: ANION GAP 18.9 mmol/L (8-16); CALCIUM 8.5 mg/dL (8.5-10.1); CARBON DIOXIDE 21.8 mmol/L (21.0-32.0); CREATININE - SERUM 3.9 mg/dL (0.6-1.3)
[2019-09-02 06:48] LABS: POTASSIUM - SERUM 3.7 mmol/L (3.5-5.1)
[2019-09-02 06:53] LABS: BASOPHILS 1.1 % (0-2); EOSINOPHILS 3.5 % (0-7); HEMATOCRIT 29.7 % (42.0-54.0); HEMOGLOBIN 9.1 g/dL (13.5-17.5); IMMATURE GRANULOCYTES 0.2 % (0-5); LYMPHOCYTES 13.1 % (15-50); MCH 25.8 pg (26.0-34.0); MCHC 30.6 g/dL (31.0-37.0); MCV 84.1 fL (80.0-100.0); MEAN PLATELET VOLUME 10.1 fL (7.4-10.4); MONOCYTES 9.6 % (2-11); NEUTROPHILS 72.5 % (40-80); PLATELET COUNT 237 10x3/uL (130-400); RBC 3.53 10x6/uL (4.20-6.10); RDW 19.7 % (11.5-14.5); WBC 4.6 10x3/uL (4.8-10.8)
[2019-09-02 09:41] VITALS: BP 135/42
--- NOTE | 2019-09-02 10:00 | NUR ---
UPON ENTERING THE ROOM PT LYING IN BATHROOM FLOOR. PT STATES HIS LEFT FOOT CAME OUT FROM UNDER HIM. HE HAS AN ABRASION TO THE LEFT ELBOW, KNEE, AND ANKLE. PT STATES HE DID NOT HIT HIS HEAD AND IS NOT COMPLAINING OF ANY PAIN AT THIS TIME. DR. EATON NOTIFIED. WILL CTM
[2019-09-02 13:43] VITALS: BP 136/66
--- NOTE | 2019-09-02 15:52 | NUR ---
PT TAKEN TO DIALYSIS AT THIS TIME.
== END 2019-09-02 19:28 | disposition home or self-care (01) | DRG 377 ==
LOC: D.ER 09:48 → D.M2 12:00
PROVIDERS: Family Medicine; Internal Medicine Gastroenterology; ADMIT Internal Medicine; ATTEND Internal Medicine
PROC: 0W3P8ZZ Control Bleeding in Gastrointestinal Tract, Via Natural or Artificial Opening Endoscopic (ICD-10-PCS; 2019-09-01)
PROC: 0DB98ZZ Excision of Duodenum, Via Natural or Artificial Opening Endoscopic (ICD-10-PCS; principal; 2019-09-01 15:30)
PROC: 5A1D70Z Performance of Urinary Filtration, Intermittent, Less than 6 Hours Per Day (ICD-10-PCS; 2019-09-02)
DX: K31.811 Angiodysplasia of stomach and duodenum with bleeding (principal); N18.6 End stage renal disease; I12.0 Hypertensive chronic kidney disease with stage 5 chronic kidney disease or end stage renal disease; D62 Acute posthemorrhagic anemia; K31.7 Polyp of stomach and duodenum; E11.22 Type 2 diabetes mellitus with diabetic chronic kidney disease; Z99.2 Dependence on renal dialysis; I25.10 Atherosclerotic heart disease of native coronary artery without angina pectoris; D63.1 Anemia in chronic kidney disease; D50.9 Iron deficiency anemia, unspecified; E87.6 Hypokalemia; Z95.0 Presence of cardiac pacemaker

== ENCOUNTER 2019-10-25 15:10 | Inpatient (IN) | payer MEDICARE, OTHER ==
[~2019-10-25] VITALS: Ht 180.3 cm; Wt 86.2 kg
[~2019-10-25 15:10] MED LIST changes: +DEXILANT60 MG PO; +EFFEXOR37.5 MG PO; +SYNTHROID75 MCG PO; +TUMS PO
[2019-10-25 15:49] LABS: BASOPHILS 0.2 % (0-2); EOSINOPHILS 0 % (0-7); HEMATOCRIT 36.7 % (42.0-54.0); HEMOGLOBIN 11.3 g/dL (13.5-17.5); IMMATURE GRANULOCYTES 0.3 % (0-5); LYMPHOCYTES 2.9 % (15-50); MCH 24.2 pg (26.0-34.0); MCHC 30.8 g/dL (31.0-37.0); MCV 78.8 fL (80.0-100.0); MEAN PLATELET VOLUME 10.5 fL (7.4-10.4); MONOCYTES 5.2 % (2-11); NEUTROPHILS 91.4 % (40-80); PLATELET COUNT 174 10x3/uL (130-400); RBC 4.66 10x6/uL (4.20-6.10); RDW 18.4 % (11.5-14.5); WBC 10.8 10x3/uL (4.8-10.8)
[2019-10-25 15:57] LABS: INR 1.58 (0.85-1.17); PROTIME 18.7 SECONDS (11.6-15.0)
[2019-10-25 15:58] LABS: APTT 45.8 SECONDS (22.8-39.4)
[2019-10-25] MEDS ORDERED: LOPID600 MG PO (16:29)
[2019-10-25] MEDS ORDERED: RENA-VITE TABL0.8 MG PO (16:30)
[2019-10-25] MEDS ORDERED: BAYER CHEWABLE81 MG PO (16:31)
[2019-10-25 16:32] VITALS: BP 127/67
[2019-10-25 16:38] LABS: CALC OSMOLALITY 288 mosm/kg (275-300); CALCIUM 8.7 mg/dL (8.5-10.1); CARBON DIOXIDE 21.6 mmol/L (21.0-32.0); CHLORIDE - SERUM 101 mmol/L (98-107); CREATININE - SERUM 4.8 mg/dL (0.6-1.3); SODIUM 141 mmol/L (136-145); UREA NITROGEN 44 mg/dL (7-18); eGFR NON AFRICAN AMERICAN 13 mL/min (90-120)
[2019-10-25 16:39] LABS: GLUCOSE 47 mg/dL (74-106)
[2019-10-25 16:42] LABS: ALBUMIN 3.3 g/dL (3.4-5.0); ALKALINE PHOSPHATASE 107 U/L (30-120); ALT (SGPT) 9 U/L (10-68); BILIRUBIN - TOTAL 1.56 mg/dL (0.2-1.3); CKMB 1.6 U/L (0.0-3.6); CREATINE KINASE 81 UL (21-232); PROTEIN - SERUM 6.4 g/dL (6.4-8.2); TROPONIN-I 0.052 ng/mL (0.000-0.060)
--- NOTE | 2019-10-25 16:44 | NUR ---
FSBS 60 ADVISED EDP NEW ORDERS GIVEN
[2019-10-25 16:49] LABS: BILIRUBIN NEGATIVE (NEGATIVE); KETONE NEGATIVE (NEGATIVE); NITRITE NEGATIVE (NEGATIVE); UROBILINOGEN NORMAL (NORMAL); WHITE CELLS - URINE 0-5 /hpf (0-5)
[2019-10-25 16:50] LABS: AMORPHOUS SEDIMENT >1+ /lpf (NONE SEEN); BACTERIA MANY /hpf (NONE SEEN); EPITHELIAL CELLS 0-5 /hpf (0-5); HYALINE CAST 0-5 /lpf (NONE SEEN)
[2019-10-25 17:47] LABS: AMYLASE - SERUM 17 U/L (25-115)
[2019-10-25 17:48] LABS: LIPASE 39 U/L (73-393)
[2019-10-25 18:26] VITALS: BP 109/37
--- NOTE | 2019-10-25 19:15 | NUR ---
PT SLIDING OUT OF BED AND INCONTINENT. WITH ASSISTANCE, PT CLEANSED AND LIFTED UP IN BED. PT'S OXYGEN OUT OF NOSE. REAPPLIED. PT STATES "FEELS WEAK AND DIZZY"- ALSO C/O NAUSEA- EMESIS BAG GIVEN.
--- NOTE | 2019-10-25 19:21 | NUR ---
ZOFRAN 4MG GIVEN. TYLENOL GIVEN AND ZOSYN BEGAN. MILLER INSERTED PER STERILE TECHNIQUE. PT AUDIBLY WHEEZING. CALLED FOR PRN DUONEB THAT IS ORDERED. WILL MOVE TO NEGATIVE PRESSURE ROOM E1.
--- NOTE | 2019-10-25 19:50 | NUR ---
FSBS 54. REMAINING HALF OF D50 GIVEN IVP. MOVED TO E-1.
--- NOTE | 2019-10-25 20:00 | NUR ---
REPORT TO JOANA STRATTON. WILL PAGE NEPHROLOGY CAR CLERK PULLMAN ABOUT LOW BLOOD SUGAR.
[2019-10-25 20:19] VITALS: BP 79/20
[2019-10-25 20:22] VITALS: BP 113/57
--- NOTE | 2019-10-25 21:00 | NUR ---
SPOKE TO DR. HURTADO. D10 AT 20ML/HOUR ORDER RECEIVED AND TO CHECK BLOOD SUGAR Q 4 HOURS TONIGHT. ALSO 1 TIME DOSE OF VANCOMYCIN 1GM RECEIVED. IN TO CHECK ON PATIENT-STATES "I FEEL BETTER THAN I DID EARLIER." D10 AND VANC BEGAN - PLACED ON IV PUMP. O2 IN PLACE. CALL OCHOA WITHIN REACH.
[2019-10-25 23:49] VITALS: BP 98/38
[2019-10-26 00:14] VITALS: BP 110/60
[2019-10-26 02:40] VITALS: BP 95/47
--- NOTE | 2019-10-26 03:49 | NUR ---
ZOSYN STARTED 0124 FINISHED 0154. 50ML INFUSED.
[2019-10-26 06:40] VITALS: BP 95/58
--- NOTE | 2019-10-26 07:00 | NUR ---
PT CARE ASSUMED AT THIS TIME, PT IS AWAKE AND ALERT, LYING ON ER STRETCHER, IV FLUIDS INFUSING, RESPIRATIONS EVEN AND UNLABORED, NAD NOTED, DENIES NEEDS AT THIS TIME.
[2019-10-26 08:40] LABS: BASOPHILS 0.1 % (0-2); EOSINOPHILS 0 % (0-7); HEMATOCRIT 34.3 % (42.0-54.0); HEMOGLOBIN 10.4 g/dL (13.5-17.5); IMMATURE GRANULOCYTES 0.5 % (0-5); LYMPHOCYTES 1.3 % (15-50); MCHC 30.3 g/dL (31.0-37.0); MCV 79.2 fL (80.0-100.0); MEAN PLATELET VOLUME 10.5 fL (7.4-10.4); MONOCYTES 5.7 % (2-11); NEUTROPHILS 92.4 % (40-80); PLATELET COUNT 151 10x3/uL (130-400); RBC 4.33 10x6/uL (4.20-6.10); RDW 18.8 % (11.5-14.5); WBC 11.1 10x3/uL (4.8-10.8)
[2019-10-26 08:52] LABS: ANION GAP 21.6 mmol/L (8-16); CALCIUM 8.3 mg/dL (8.5-10.1); CARBON DIOXIDE 19.6 mmol/L (21.0-32.0); CREATININE - SERUM 5.2 mg/dL (0.6-1.3); PHOSPHOROUS 7.5 mg/dL (2.5-4.9); POTASSIUM - SERUM 4.2 mmol/L (3.5-5.1)
[2019-10-26 10:49] VITALS: BP 90/50
[2019-10-26 12:13] VITALS: BP 119/60
--- NOTE | 2019-10-26 19:49 | NUR ---
RECEIVED REPORT, WILL ASSUME CARE OF PT, PLACED ON TELEMTRY, PT DENIES ANY NEEDS AT THIS TIME, BED IS LOW, SRX2, CALL LIGHT IN REACH, WILL CONTINUE PLAN OF CARE
[2019-10-26 21:40] VITALS: BP 113/54
[2019-10-27] VITALS: BP 99/50
[2019-10-27 04:00] VITALS: BP 104/57
[2019-10-27 06:20] LABS: ANION GAP 17.7 mmol/L (8-16); CALCIUM 8.2 mg/dL (8.5-10.1); CREATININE - SERUM 4.2 mg/dL (0.6-1.3); PHOSPHOROUS 5.8 mg/dL (2.5-4.9); POTASSIUM - SERUM 3.6 mmol/L (3.5-5.1); VANCOMYCIN - RANDOM 10.6 ug/mL (10.0-20.0)
[2019-10-27 06:22] LABS: BASOPHILS 0.1 % (0-2); EOSINOPHILS 0.1 % (0-7); HEMATOCRIT 33.8 % (42.0-54.0); HEMOGLOBIN 10.5 g/dL (13.5-17.5); IMMATURE GRANULOCYTES 0.3 % (0-5); LYMPHOCYTES 4.4 % (15-50); MCH 24.2 pg (26.0-34.0); MCHC 31.1 g/dL (31.0-37.0); MCV 78.1 fL (80.0-100.0); MONOCYTES 11.7 % (2-11); NEUTROPHILS 83.4 % (40-80); PLATELET COUNT 132 10x3/uL (130-400); RBC 4.33 10x6/uL (4.20-6.10); RDW 18.8 % (11.5-14.5)
[2019-10-27 06:23] LABS: CARBON DIOXIDE 25.9 mmol/L (21.0-32.0); WBC 7.8 10x3/uL (4.8-10.8)
--- NOTE | 2019-10-27 07:00 | NUR ---
RECEIVED REPORT. ASSUMED CARE OF PATIENT. PATIENT RESTING IN BED WITH EYES OPEN. CALL LIGHT WITHIN REACH. D10 INFUSING ORDERED. NO DISTRESS.
[2019-10-27 15:00] VITALS: BP 116/65
--- NOTE | 2019-10-27 17:53 | NUR ---
CALLED AND SPOKE TO PATIENTS TO LET HER KNOW THAT PATIENT IS MOVING TO ROOM 2101. STATES SHE WILL NOT BE BACK UP TONIGHT DUE TO THE RAIN, BUT WILL LOOK FOR HIM IN 2101 IN THE AM AND THANKED THIS RESIST COATER DEVELOPER FOR CALLING.
--- NOTE | 2019-10-27 19:00 | NUR ---
ALERT AND ORIENTED BED LOW AND LOCKED PT DENIES NEEDS AT THIS TIME
[2019-10-27 20:00] VITALS: BP 125/70
[2019-10-28] VITALS: BP 114/66
[2019-10-28 04:00] VITALS: BP 115/73
[2019-10-28 06:19] LABS: BASOPHILS 0.1 % (0-2); EOSINOPHILS 0.8 % (0-7); HEMATOCRIT 33.7 % (42.0-54.0); HEMOGLOBIN 10.5 g/dL (13.5-17.5); IMMATURE GRANULOCYTES 0.3 % (0-5); LYMPHOCYTES 5.6 % (15-50); MCH 24.2 pg (26.0-34.0); MCHC 31.2 g/dL (31.0-37.0); MCV 77.6 fL (80.0-100.0); MONOCYTES 9.2 % (2-11); PLATELET COUNT 113 10x3/uL (130-400); RBC 4.34 10x6/uL (4.20-6.10); RDW 18.7 % (11.5-14.5); WBC 7.7 10x3/uL (4.8-10.8)
[2019-10-28 06:36] LABS: ANION GAP 19.5 mmol/L (8-16); CALCIUM 7.8 mg/dL (8.5-10.1); CARBON DIOXIDE 22.8 mmol/L (21.0-32.0); CREATININE - SERUM 4.9 mg/dL (0.6-1.3); PHOSPHOROUS 6.5 mg/dL (2.5-4.9); POTASSIUM - SERUM 3.3 mmol/L (3.5-5.1); VANCOMYCIN - TROUGH 19.6 ug/mL (10.0-20.0)
--- NOTE | 2019-10-28 07:10 | NUR ---
PATIENT RESTING COMFORTABLY IN BED, TALKING WITH ON PHONE, DENIES NEEDS.
[2019-10-28 08:07] LABS: INR 1.22 (0.85-1.17); PROTIME 15.3 SECONDS (11.6-15.0)
[2019-10-28 09:39] VITALS: BP 137/93
[2019-10-28 10:54] VITALS: BP 129/57
[2019-10-28 13:19] VITALS: Ht 180.3 cm; Wt 86.2 kg
[2019-10-28 20:00] VITALS: BP 123/56
--- NOTE | 2019-10-28 20:00 | NUR ---
REPORT RECEIVED, WILL CONT POC. PT UP IN BED, WATCHING TV, REQUESTS WATER, BROUGHT TO BEDSIDE. NO S/S OF DISTRESS OBSERVED. RR EVEN AND UNLABORED ON 2L VIA NC. PT DENIES ANY OTHER NEEDS AT THIS TIME. CALL LIGHT IN REACH, BED LOCKED AND LOWERED. ASSESSMENT COMPLETED AT THIS TIME.
[2019-10-29] VITALS: BP 103/53
[2019-10-29 04:00] VITALS: BP 101/46
--- NOTE | 2019-10-29 04:29 | NUR ---
I have reviewed this patient and I concur with the Shift Assessment completed by the Licensed Practical Nurse today this shift.
[2019-10-29 04:51] LABS: BASOPHILS 0.3 % (0-2); EOSINOPHILS 0.9 % (0-7); IMMATURE GRANULOCYTES 0.5 % (0-5); LYMPHOCYTES 6.9 % (15-50); MCH 24.4 pg (26.0-34.0); MCHC 31.4 g/dL (31.0-37.0); MCV 77.6 fL (80.0-100.0); MONOCYTES 8.2 % (2-11); NEUTROPHILS 83.2 % (40-80); PLATELET COUNT 109 10x3/uL (130-400); RBC 4.51 10x6/uL (4.20-6.10); WBC 6.5 10x3/uL (4.8-10.8)
[2019-10-29 05:15] LABS: ANION GAP 14.9 mmol/L (8-16); CALCIUM 7.3 mg/dL (8.5-10.1); CARBON DIOXIDE 26.1 mmol/L (21.0-32.0); CREATININE - SERUM 4.2 mg/dL (0.6-1.3); PHOSPHOROUS 5.1 mg/dL (2.5-4.9); VANCOMYCIN - RANDOM 23.7 ug/mL (10.0-20.0)
--- NOTE | 2019-10-29 07:15 | NUR ---
RECEIVE SHIFT REPORT. RESTING IN BED WITH EYES CLOSED. NO SIGNS OF DISTRESS. WILL CONTINUE PLAN OF CARE AND SAFETY PRECAUTIONS.
[2019-10-29 09:32] VITALS: BP 125/61
--- NOTE | 2019-10-29 09:34 | MORECARE ---
CASE MANAGEMENT DISCHARGE SUMMARY PATIENT: OSMAN FERMIN UNIT: [id number] ADM DATE: 10/25/19 AGE: 74 : 43 SEX: M ROOM/BED: D.2102 AUTHOR: CHRISTIANO FLANAGAN PHYSICIAN: REFERRING PHYSICIAN: JANET YORK MD DATE OF SERVICE: 10/29/19 Discharge Plan Patient Name: OSMAN FERMIN Facility: [facility]:[place] : 1945 Planned Disposition: Home Anticipated Discharge Date: 10/29/19 Discharge Date: Expected LOS: 4 Initial Reviewer: [email or web address] Initial Review Date: 10/29/2019 Generated: 10/29/19 10:34 am Comments DCP- Discharge Planning Updated by [email or web address]: Mireya Jane on 10/29/19 8:[address] Patient Name: OSMAN FERMIN Admission Status: ER Accout number: [id number] Admission Date: 10-25-2019 : 1945 Admission Diagnosis:SEPSIS, UNSPECIFIED ORGANISM Attending: Janet York Current LOS: 4 Anticipated DC Date: 10-29-2019 Planned Disposition: Home Primary Insurance: MEDICARE A & B Discharge Planning Comments: CM met with patient's (per isolation protocol) to discuss discharge planning/needs. Patient lives at home with his . At discharge states the plan is to return and feels this is a safe discharge. CM discussed availability of home health, rehab services, and medical equipment. denied known discharge needs at this time. States typically he ambulates with a walker without any assistance from her. States he has 2 steps inside with rails and he is able to climb them with his walker without difficulty. She had concerns that he hasn't ambulated much here, so I have consulted PT and spoke with Maurice. I had a room air sat done and it is 98% at rest and 94% with exertion, he does not qualify for home oxygen. CM will continue to follow and will assist as needed with dc plans/needs. Senior Design Engineering Specialist: Mireya Jane DCPIA - Discharge Planning Initial Assessment Updated by [email or web address]: Mireya Jane on 10/29/19 9:24 am * How many steps to enter\exit or inside your home? ramp/2 * PCP Dr. Hurtado[facility] * Pharmacy [facility] [address] * Preadmission Environment Home with Family * ADLs Partial Dependent * Partial ADLs (Assistance needed) Ambulation Medication Management * Equipment Cane CPAP Rolling Walker Wheelchair * List name and contact numbers for known caregivers / representatives who currently or will assist patient after discharge: Bridgett Fermin - [phone] * Verbal permission to speak to the caregivers and representatives has been obtained from the patient. Yes * Community resources currently utilized Other * Please name any agencies selected above. [facility] MWF at 0545 * Additional services required to return to the preadmission environment? No * Can the patient safely return to the preadmission environment? Yes * Has this patient been hospitalized within the prior 30 days at any hospital? No Coverage Notice Reviewer: [email or web address] Chuckie Jane Notice Issued Date-Time: 10/29/2019 9:18 Notice Type: IM Discharge Notice Notice Delivered To: Family Member Relationship to Patient: Spouse Tug Master Name: Bridgett Fermin Delivery Method: HAND - Hand Delivered Yen Days: Prior Verbal Notification: Recipient Understood Notice: Yes Recipient Signature: Yes Med Rec Note Co-signed by Attending: Coverage Notice Comment: Patient Name: OSMAN FERMIN Page [phone] at 0934 All edits/amendments must be made on the electronic document DICTATION DATE: 10/29/19933 DIGITAL ADVISOR: DONAVAN 10/29/19933 RPT#: [id number] DC DATE: STATUS: ADM [address] [place] [address] END OF REPORT
[2019-10-29 11:37] LABS: PROTEIN - BODY FLUID 3.9 G/DL
[2019-10-29 13:35] LABS: EOS BF 1 %; MACROPHAGES BF 14 %; NEUT - BF 82 %
--- NOTE | 2019-10-29 13:54 | NUR ---
D/C MILLER CATHETER PER NANDANI ORDERS. DEFLATED BULB, 10ML. DENIES PAIN. WILL CONTINUE TO MONITOR URINE OUTPUT.
[2019-10-29 13:55] VITALS: BP 116/55
[2019-10-29 18:10] VITALS: BP 121/58
[2019-10-29 20:00] VITALS: BP 121/63
[2019-10-30] VITALS: BP 119/56
[2019-10-30 04:00] VITALS: BP 115/73
--- NOTE | 2019-10-30 04:37 | NUR ---
PT A/O X4. RR EVEN AND UNLABORED. NO S/S OF DISTRESS AT THIS TIME. BLADDER SCAN DONE ON PT. 113ML IN BLADDER. PT DENIES ANY PAIN OR FURTHER NEEDS. WILL CONTINUE TO MONITOR.
[2019-10-30] MEDS ORDERED: LASIX80 MG PO (06:51)
[2019-10-30] MEDS ORDERED: GABAPENTIN300 MG PO (06:52)
[2019-10-30] MEDS ORDERED: GEMFIBROZIL600 MG PO (06:52)
[2019-10-30] MEDS ORDERED: NORVASC5 MG PO (06:52)
[2019-10-30] MEDS ORDERED: EFFEXOR XR37.5 MG PO (06:53)
[2019-10-30] MEDS ORDERED: PLAVIX75 MG PO (06:53)
[2019-10-30] MEDS ORDERED: CARAFATE1 G PO (06:53)
[2019-10-30 07:52] LABS: BASOPHILS 0.3 % (0-2); EOSINOPHILS 1.7 % (0-7); HEMATOCRIT 34.8 % (42.0-54.0); IMMATURE GRANULOCYTES 0.6 % (0-5); LYMPHOCYTES 8.9 % (15-50); MCH 24.3 pg (26.0-34.0); MCHC 31.6 g/dL (31.0-37.0); MCV 76.8 fL (80.0-100.0); MEAN PLATELET VOLUME 10.5 fL (7.4-10.4); MONOCYTES 8.4 % (2-11); NEUTROPHILS 80.1 % (40-80); PLATELET COUNT 114 10x3/uL (130-400); RBC 4.53 10x6/uL (4.20-6.10); RDW 17.7 % (11.5-14.5); WBC 6.4 10x3/uL (4.8-10.8)
[2019-10-30 08:08] LABS: ALBUMIN 2.5 g/dL (3.4-5.0); ANION GAP 17.3 mmol/L (8-16); CALCIUM 7.1 mg/dL (8.5-10.1); CARBON DIOXIDE 22.8 mmol/L (21.0-32.0); CREATININE - SERUM 4.9 mg/dL (0.6-1.3); PHOSPHOROUS 5.8 mg/dL (2.5-4.9); POTASSIUM - SERUM 3.1 mmol/L (3.5-5.1); VANCOMYCIN - RANDOM 20.5 ug/mL (10.0-20.0)
[2019-10-30 10:01] VITALS: BP 115/49
--- NOTE | 2019-10-30 11:15 | NUR ---
Nutrition Follow-up: Advanced to regular diet yesterday per renal. Ate 100% of breakfast this AM. Paracentesis on 10/27 (-10.7 L). Wt: 190# (10/28) Last BM: 10/28 per chart Labs noted: Na 131, K+ 3.1, Ca 7.1, PO4 5.8, Alb 2.5 Meds noted: Protonix, Lasix -Encourage PO intake and honor food preferences within diet restrictions. -MD may consider PO4 binder 2/2 hyperphosphatemia. -Monitor wt; noted daily wts ordered. -RD following.
[2019-10-30 13:38] VITALS: BP 121/59
[2019-10-30 14:10] LABS: FUNGUS STAIN Final report (())
--- NOTE | 2019-10-30 15:18 | NUR ---
ORDER CLARIFICATION TO SOFT TISSUE RT EXTREMITY, NON VASCULAR TO CHECK FOR HEMATOMA, ABCESS BY Ni CEJA MD. CELENA,RDMS
[2019-10-30 21:00] VITALS: BP 119/46
[2019-10-31 08:36] VITALS: BP 130/57
--- NOTE | 2019-10-31 10:15 | NUR ---
PT AWAKE AND ORIENTED, LYING IN BED. TOOK MEDICATIONS WITHOUT COMPLICATIONS. DISCHARGE READY. WILL D/C [facility]. CL IN REACH, SRX2.
--- NOTE | 2019-10-31 11:20 | NUR ---
PT I/V OUT TIP INTACT. ESCORTED OUT VIA WHEELCHAIR TO POV. DRIVING.
[2019-10-31 14:09] LABS: ACID FAST SMEAR Negative (()); AFB SPECIMEN PROCESSING Not Indicated (())
[2019-10-31 18:08] LABS: AEROBE ID Final report (())
== END 2019-10-31 11:21 | disposition home or self-care (01) | DRG 871 ==
LOC: D.ER 15:10 → D.M2 22:36 → D.EDHOLD 22:36 → D.M2 10-26 07:02
PROVIDERS: Family Medicine; General Practice; Internal Medicine; ADMIT Internal Medicine Nephrology; ATTEND Internal Medicine Nephrology
PROC: 5A1D70Z Performance of Urinary Filtration, Intermittent, Less than 6 Hours Per Day (ICD-10-PCS; principal; 2019-10-26)
PROC: 0W9G3ZZ Drainage of Peritoneal Cavity, Percutaneous Approach (ICD-10-PCS; 2019-10-28)
DX: A41.9 Sepsis, unspecified organism (principal); N18.6 End stage renal disease; J96.01 Acute respiratory failure with hypoxia; I12.0 Hypertensive chronic kidney disease with stage 5 chronic kidney disease or end stage renal disease; N39.0 Urinary tract infection, site not specified; R18.8 Other ascites; E11.22 Type 2 diabetes mellitus with diabetic chronic kidney disease; I25.10 Atherosclerotic heart disease of native coronary artery without angina pectoris; D63.1 Anemia in chronic kidney disease; E83.39 Other disorders of phosphorus metabolism; K76.0 Fatty (change of) liver, not elsewhere classified; Z95.0 Presence of cardiac pacemaker

== ENCOUNTER 2019-12-02 09:58 | Inpatient (IN) | payer MEDICARE, OTHER ==
[~2019-12-02] VITALS: Ht 180.3 cm; Wt 77.6 kg
[~2019-12-02 09:58] MED LIST changes: +CARAFATE1 G PO; +EFFEXOR XR37.5 MG PO; +GABAPENTIN300 MG PO; +LOPID600 MG PO; +NORVASC5 MG PO
[2019-12-02 10:24] LABS: BASOPHILS 0.3 % (0-2); EOSINOPHILS 1.3 % (0-7); HEMATOCRIT 35.5 % (42.0-54.0); HEMOGLOBIN 11.1 g/dL (13.5-17.5); IMMATURE GRANULOCYTES 0.2 % (0-5); LYMPHOCYTES 7.8 % (15-50); MCH 24.4 pg (26.0-34.0); MCHC 31.3 g/dL (31.0-37.0); MEAN PLATELET VOLUME 9.7 fL (7.4-10.4); MONOCYTES 5.4 % (2-11); RBC 4.55 10x6/uL (4.20-6.10); RDW 19.9 % (11.5-14.5); WBC 6.3 10x3/uL (4.8-10.8)
[2019-12-02 10:45] LABS: PLATELET COUNT 140 10x3/uL (130-400)
[2019-12-02 10:52] LABS: ALBUMIN 2.5 g/dL (3.4-5.0); ALKALINE PHOSPHATASE 100 U/L (30-120); ALT (SGPT) 7 U/L (10-68); BILIRUBIN - TOTAL 1.43 mg/dL (0.2-1.3); CALC OSMOLALITY 277 mosm/kg (275-300); CALCIUM 8.4 mg/dL (8.5-10.1); CARBON DIOXIDE 31.5 mmol/L (21.0-32.0); CHLORIDE - SERUM 100 mmol/L (98-107); CKMB 4.3 U/L (0.0-3.6); CREATINE KINASE 92 UL (21-232); CREATININE - SERUM 2.6 mg/dL (0.6-1.3); GLUCOSE 78 mg/dL (74-106); MAGNESIUM - SERUM 1.8 mg/dL (1.8-2.4); PROTEIN - SERUM 6.5 g/dL (6.4-8.2); SODIUM 140 mmol/L (136-145); THYROID STIMULATING HORMONE 4.09 uIU/mL (0.36-3.74); TROPONIN-I < 0.017 ng/mL (0.000-0.060); UREA NITROGEN 13 mg/dL (7-18); eGFR NON AFRICAN AMERICAN 26 mL/min (90-120)
[2019-12-02 10:53] LABS: APTT 55.5 SECONDS (22.8-39.4); INR 1.32 (0.85-1.17); POTASSIUM - SERUM 2.7 mmol/L (3.5-5.1); PROTIME 16.3 SECONDS (11.6-15.0)
[2019-12-02 13:18] VITALS: BP 120/51
--- NOTE | 2019-12-02 13:45 | NUR ---
EKG COMPLETE, IV ATTEMPT X3 WITH NO SUCCESS. PT TOLERATED WELL. VSS. PT IN NO DISTRESS.
--- NOTE | 2019-12-02 14:30 | NUR ---
MULTIFOLD OPERATOR CLINICAL FRANCISCO, DENIES NEEDS AT THIS TIME. VSS. WILL CONTINUE TO MONITOR. AT BEDSIDE
[2019-12-02 15:00] VITALS: BP 120/70
--- NOTE | 2019-12-02 15:39 | NUR ---
U/S TECH AT BEDSIDE FOR DOPPLER OF RIGHT ARM.
[2019-12-02 16:00] VITALS: BP 110/43
--- NOTE | 2019-12-02 16:30 | NUR ---
NO CLINICAL CHANGES, DENIES NEEDS AT THIS TIME. WILL CONTINUE TO MONITOR.
[2019-12-02 17:00] VITALS: BP 112/74
--- NOTE | 2019-12-02 17:40 | NUR ---
COVID SWAB COLLECTED ET TO LAB AT THIS TIME.
[2019-12-02 18:00] VITALS: BP 118/70
--- NOTE | 2019-12-02 20:01 | NUR ---
REPORT TO JOANA QUINTANILLA USING SBAR.
--- NOTE | 2019-12-02 20:20 | NUR ---
REPORT TO JOANA QUINTANILLA USING SBAR
--- NOTE | 2019-12-02 21:07 | NUR ---
PT MEDICATED PER MD ORDER: LOVENOX AND POTASSIUM PO AT 1715. SCAN NOT SAVED BY MISTAKE.
[2019-12-03 04:00] VITALS: BP 116/50
[2019-12-03 05:45] LABS: BASOPHILS 0.4 % (0-2); EOSINOPHILS 1.4 % (0-7); HEMATOCRIT 34.5 % (42.0-54.0); HEMOGLOBIN 10.5 g/dL (13.5-17.5); IMMATURE GRANULOCYTES 0.3 % (0-5); LYMPHOCYTES 7.9 % (15-50); MCH 23.9 pg (26.0-34.0); MCHC 30.4 g/dL (31.0-37.0); MCV 78.4 fL (80.0-100.0); MEAN PLATELET VOLUME 10.2 fL (7.4-10.4); PLATELET COUNT 144 10x3/uL (130-400); WBC 7.2 10x3/uL (4.8-10.8)
[2019-12-03 06:21] LABS: APTT 49.9 SECONDS (22.8-39.4); INR 1.32 (0.85-1.17); PROTIME 16.3 SECONDS (11.6-15.0)
[2019-12-03 06:26] LABS: ALBUMIN 2.3 g/dL (3.4-5.0); BILIRUBIN - TOTAL 1.5 mg/dL (0.2-1.3); CALCIUM 7.9 mg/dL (8.5-10.1); CARBON DIOXIDE 28.4 mmol/L (21.0-32.0); MAGNESIUM - SERUM 1.8 mg/dL (1.8-2.4); PHOSPHOROUS 3.2 mg/dL (2.5-4.9); PROTEIN - SERUM 5.7 g/dL (6.4-8.2)
[2019-12-03 06:31] LABS: CREATININE - SERUM 3.6 mg/dL (0.6-1.3)
[2019-12-03 06:34] LABS: ANION GAP 14.4 mmol/L (8-16); POTASSIUM - SERUM 2.8 mmol/L (3.5-5.1)
--- NOTE | 2019-12-03 06:39 | NUR ---
PAGEDennis ALVARADO APN, REGARDING CRITICAL POTASSIUM OF 2.8.
[2019-12-03 10:17] VITALS: BP 118/54
[2019-12-03 12:30] VITALS: Ht 180.3 cm; Wt 77.6 kg
[2019-12-03 13:40] VITALS: BP 119/61
--- NOTE | 2019-12-03 15:09 | NUR ---
Rehab Note- Acute Inpatient Rehab prescreen order received. The patient is a new admit, still having an acute work up done at this time. He has a pending PT Eval. Will follow at this time. Thank you for this referral! Francia Kelley RN Clinical Liaison, [facility] Rehab
[2019-12-03 16:55] LABS: MAGNESIUM - SERUM 1.9 mg/dL (1.8-2.4); POTASSIUM - SERUM 3.1 mmol/L (3.5-5.1)
[2019-12-03 16:59] VITALS: BP 114/58
[2019-12-03 20:00] VITALS: BP 129/70
[2019-12-04 04:00] VITALS: BP 127/60
[2019-12-04 07:49] LABS: BASOPHILS 0.3 % (0-2); EOSINOPHILS 0.5 % (0-7); HEMATOCRIT 35.3 % (42.0-54.0); HEMOGLOBIN 10.8 g/dL (13.5-17.5); IMMATURE GRANULOCYTES 0.2 % (0-5); LYMPHOCYTES 5.8 % (15-50); MCHC 30.6 g/dL (31.0-37.0); MCV 78.4 fL (80.0-100.0); MONOCYTES 5.5 % (2-11); NEUTROPHILS 87.7 % (40-80); PLATELET COUNT 141 10x3/uL (130-400); RDW 20.1 % (11.5-14.5)
[2019-12-04 08:00] LABS: WBC 9.6 10x3/uL (4.8-10.8)
[2019-12-04 08:21] LABS: ANION GAP 15.7 mmol/L (8-16); CALCIUM 7.9 mg/dL (8.5-10.1); CARBON DIOXIDE 25.6 mmol/L (21.0-32.0); CREATININE - SERUM 4.4 mg/dL (0.6-1.3); MAGNESIUM - SERUM 1.8 mg/dL (1.8-2.4); PHOSPHOROUS 2.9 mg/dL (2.5-4.9); POTASSIUM - SERUM 3.3 mmol/L (3.5-5.1)
[2019-12-04 10:44] VITALS: BP 100/40
[2019-12-04 14:13] VITALS: BP 118/59
--- NOTE | 2019-12-04 15:07 | MORECARE ---
CASE MANAGEMENT DISCHARGE SUMMARY PATIENT: OSMAN RIBEIRO KAILYN UNIT: [id number] ADM DATE: 12/02/19 AGE: 74 : 44 SEX: M ROOM/BED: D.2112 AUTHOR: CHRISTIANO FLANAGAN PHYSICIAN: REFERRING PHYSICIAN: MARY KAY CEJA MD DATE OF SERVICE: 12/04/19 Discharge Plan Patient Name: OSMAN RIBEIRO Facility: [facility]:[place] : 1945 Planned Disposition: Inpatient Rehab Anticipated Discharge Date: Discharge Date: Expected LOS: Initial Reviewer: [email or web address] Initial Review Date: 12/04/2019 Generated: 12/04/19 4:06 pm Patient Name: OSMAN RIBEIRO Page 38843 at 1507 All edits/amendments must be made on the electronic document DICTATION DATE: 12/04/19 1507 [place] SET UP OPERATOR: DONAVAN 12/04/19 1507 RPT#: [id number] DC DATE: STATUS: ADM IN [facility] [address] [place] [address] END OF REPORT
--- NOTE | 2019-12-04 15:41 | MORECARE ---
CASE MANAGEMENT DISCHARGE SUMMARY PATIENT: OSMAN FERMIN UNIT: [id number] ADM DATE: 12/02/19 AGE: 74 : 44 SEX: M ROOM/BED: D.2112 AUTHOR: MASHADOC PHYSICIAN: REFERRING PHYSICIAN: MARY KAY CEJA MD DATE OF SERVICE: 12/04/19 Discharge Plan Patient Name: OSMAN FERMIN Facility: [facility]:[place] : 1945 Planned Disposition: Inpatient Rehab Anticipated Discharge Date: Discharge Date: Expected LOS: Initial Reviewer: [email or web address] Initial Review Date: 12/04/2019 Generated: 12/04/19 4:40 pm Comments DCP- Discharge Planning Updated by [email or web address]: Mireya Jane on 12/04/19 2:[address] I spoke with Francia in inpatient rehab and she states they will accept him when medically stable. DCP- Discharge Planning Updated by [id number]: Mireya Jane on 12/04/19 2:[address] Patient Name: OSMAN FERMIN Admission Status: ER Accout number: [id number] Admission Date: 12-02-2019 : 1945 Admission Diagnosis:END STAGE RENAL DISEASE Attending: ANIL Current LOS: 2 Anticipated DC Date: Planned Disposition: Inpatient Rehab Primary Insurance: MEDICARE A & B Discharge Planning Comments: CM met with patient and his spouse to complete initial dc planning. Patient's answers all my questions. Patient lives at home with his spouse. CM discussed availability of home health, rehab services, and medical equipment. Spouse states she would like him to go to Inpatient rehab at [facility] prior to discharge. She states when he leaves rehab, she would like to get a BSC and home health for him. JANEE for Inpatient rehab at [facility] and [facility] for medical equipment. I gave her a list of home health agencies that serve [place]. Rehab screen ordered. CM will continue to follow and assist with discharge planning/needs. Procurement Buyer: Mireya Jane DCPIA - Discharge Planning Initial Assessment Updated by [id number]: Mireya Jane on 12/04/19 3:31 pm * Is the patient Alert and Oriented? Yes * How many steps to enter\exit or inside your home? Ramp/0 * PCP Dr[facility] * Pharmacy [facility] * Preadmission Environment Home with Family * ADLs Partial Dependent * Partial ADLs (Assistance needed) Ambulation Bathing Medication Management Toileting Transfers * Equipment Cane CPAP Rolling Walker Wheelchair * List name and contact numbers for known caregivers / representatives who currently or will assist patient after discharge: Bridgett Fermin - spouse - [phone] * Verbal permission to speak to the caregivers and representatives has been obtained from the patient. Yes * Community resources currently utilized None * Additional services required to return to the preadmission environment? Yes * Can the patient safely return to the preadmission environment? Yes * Has this patient been hospitalized within the prior 30 days at any hospital? No Coverage Notice Reviewer: [id number] Chuckie Jane Notice Issued Date-Time: 12/04/2019 15:36 Notice Type: Patient Choice Letter Notice Delivered To: Family Member Relationship to Patient: Spouse Direct Entry Midwife Name: Bridgett Fermin Delivery Method: HAND - Hand Delivered Yen Days: Prior Verbal Notification: Recipient Understood Notice: Yes Recipient Signature: Yes Med Rec Note Co-signed by Attending: Coverage Notice Comment: [facility] and [facility] inpatient rehab Last DP export: 12/04/19 2:07 p Patient Name: OSMAN FERMIN Page [phone] at 1541 All edits/amendments must be made on the electronic document DICTATION DATE: 12/04/19 154 BRAZER REPAIR AND SALVAGE: DONAVAN 12/04/19 154 RPT#: [id number] DC DATE: STATUS: ADM IN [facility] [address] [place] [address] END OF REPORT
[2019-12-04 23:04] VITALS: BP 96/43
[2019-12-05 02:06] VITALS: BP 109/62
[2019-12-05 05:53] VITALS: BP 100/41
[2019-12-05 05:57] LABS: BASOPHILS 0.2 % (0-2); EOSINOPHILS 0.6 % (0-7); HEMATOCRIT 32.3 % (42.0-54.0); HEMOGLOBIN 10.1 g/dL (13.5-17.5); IMMATURE GRANULOCYTES 0.2 % (0-5); LYMPHOCYTES 7.2 % (15-50); MCH 24.3 pg (26.0-34.0); MCHC 31.3 g/dL (31.0-37.0); MCV 77.8 fL (80.0-100.0); MEAN PLATELET VOLUME 10.1 fL (7.4-10.4); MONOCYTES 6.4 % (2-11); NEUTROPHILS 85.4 % (40-80); PLATELET COUNT 136 10x3/uL (130-400); RBC 4.15 10x6/uL (4.20-6.10); RDW 19.9 % (11.5-14.5)
[2019-12-05 06:18] LABS: ANION GAP 14.1 mmol/L (8-16); CALCIUM 7.8 mg/dL (8.5-10.1); CARBON DIOXIDE 25.2 mmol/L (21.0-32.0); MAGNESIUM - SERUM 1.7 mg/dL (1.8-2.4); PHOSPHOROUS 2.6 mg/dL (2.5-4.9); POTASSIUM - SERUM 3.3 mmol/L (3.5-5.1)
--- NOTE | 2019-12-05 08:00 | NUR ---
PT SITTING UP IN BED, RR EVEN AND UNLABORED ON RA. ASSISTED TO THE BSC X1. SOFT BM X1. CLEANED AND ASSISTED BACK TO BED. DENIES FURTHER NEEDS OR PAIN AT THIS TIME. CALL LIGHT WITHIN REACH. BED IN LOWEST POSITION. WILL CONTINUE TO MONITOR.
[2019-12-05 08:23] VITALS: BP 106/56
[2019-12-05 12:16] VITALS: BP 161/62
[2019-12-05 16:08] VITALS: BP 116/51
--- NOTE | 2019-12-05 17:42 | NUR ---
CALLED AND SPOKE WITH ASHLEY DOWELL ABOUT HOLDING LOVENOX FOR PARACENTESIS, STATES TO GO AHEAD AND GIVE THIS DOSE
--- NOTE | 2019-12-05 18:09 | NUR ---
I have reviewed this patient and I concur with the Shift Assessment completed by the Licensed Practical Nurse today this shift.
[2019-12-05 20:30] VITALS: BP 115/51
[2019-12-06 00:30] VITALS: BP 125/65
[2019-12-06 04:30] VITALS: BP 119/69
[2019-12-06 07:22] LABS: ANION GAP 15.7 mmol/L (8-16); CARBON DIOXIDE 24.7 mmol/L (21.0-32.0); CREATININE - SERUM 5.5 mg/dL (0.6-1.3); MAGNESIUM - SERUM 1.8 mg/dL (1.8-2.4); PHOSPHOROUS 2.5 mg/dL (2.5-4.9); POTASSIUM - SERUM 3.4 mmol/L (3.5-5.1); VANCOMYCIN - RANDOM 8.2 ug/mL (10.0-20.0)
[2019-12-06 07:27] LABS: BASOPHILS 0.4 % (0-2); EOSINOPHILS 0.6 % (0-7); HEMATOCRIT 31.2 % (42.0-54.0); HEMOGLOBIN 9.9 g/dL (13.5-17.5); IMMATURE GRANULOCYTES 0.4 % (0-5); LYMPHOCYTES 8.2 % (15-50); MCH 24.3 pg (26.0-34.0); MCHC 31.7 g/dL (31.0-37.0); MCV 76.7 fL (80.0-100.0); MEAN PLATELET VOLUME 10.1 fL (7.4-10.4); MONOCYTES 6.9 % (2-11); NEUTROPHILS 83.5 % (40-80); PLATELET COUNT 122 10x3/uL (130-400); RBC 4.07 10x6/uL (4.20-6.10); RDW 19.8 % (11.5-14.5); WBC 8.4 10x3/uL (4.8-10.8)
[2019-12-06 08:32] VITALS: BP 108/68
[2019-12-06 12:40] VITALS: BP 119/57
--- NOTE | 2019-12-06 15:18 | NUR ---
PT AWAKE AND ORIENTED, THOUGHT HE HAD HAD ABM, CHEKCED PT, HE WAS CLEAN AND DRY AT THIS TIME. AT BEDSIDE. CL IN REACH, SRX2, NO COMPLAINTS OR CONCERNS AT THIS TIME.
--- NOTE | 2019-12-06 15:33 | NUR ---
I have reviewed this patient and I concur with the Shift Assessment completed by the Licensed Practical Nurse today this shift.
[2019-12-06 16:13] VITALS: BP 123/65
[2019-12-06 20:46] VITALS: BP 120/65
[2019-12-07 01:31] VITALS: BP 140/71
[2019-12-07 05:41] VITALS: BP 142/58
[2019-12-07 06:49] LABS: INR 1.38 (0.85-1.17); PROTIME 16.8 SECONDS (11.6-15.0)
[2019-12-07 07:10] LABS: ANION GAP 16.5 mmol/L (8-16); CALCIUM 8.8 mg/dL (8.5-10.1); CARBON DIOXIDE 24.1 mmol/L (21.0-32.0); PHOSPHOROUS 2.5 mg/dL (2.5-4.9); POTASSIUM - SERUM 3.6 mmol/L (3.5-5.1); VANCOMYCIN - RANDOM 19.3 ug/mL (10.0-20.0)
[2019-12-07 07:52] LABS: BASOPHILS 0.6 % (0-2); EOSINOPHILS 1.1 % (0-7); HEMATOCRIT 31.4 % (42.0-54.0); HEMOGLOBIN 9.9 g/dL (13.5-17.5); IMMATURE GRANULOCYTES 0.2 % (0-5); LYMPHOCYTES 10.9 % (15-50); MCH 24.1 pg (26.0-34.0); MCHC 31.5 g/dL (31.0-37.0); MCV 76.6 fL (80.0-100.0); MONOCYTES 7.5 % (2-11); NEUTROPHILS 79.7 % (40-80); PLATELET COUNT 113 10x3/uL (130-400); RDW 20.2 % (11.5-14.5); WBC 6.4 10x3/uL (4.8-10.8)
[2019-12-07 08:02] VITALS: BP 112/57
[2019-12-07 11:56] VITALS: BP 116/53
--- NOTE | 2019-12-07 12:52 | NUR ---
Nutrition Follow-up: Pt unavailable at time of visit this AM. Noted paracentesis done (-7.3 L). HD MWF. Diet: Renal ADA Wt: 171# (12/02) Labs noted: Na 133, K+ 3.6, Glu 88, PO4 2.5 Meds noted: Protonix, Megace, Tums, Carafate, Nephrovite -Encourage PO intake and honor food preferences within diet restrictions. -RD following.
--- NOTE | 2019-12-07 16:17 | NUR ---
[facility]
--- NOTE | 2019-12-07 17:53 | NUR ---
PT AWAKE AND ORIENTED, LYING IN ROOM. AT BEDSIDE. DID NOT GO TO DIALYSIS, DR HAD CANCELED. CL INR EACH, SRX2.
--- NOTE | 2019-12-07 19:30 | NUR ---
RECEIVED REPORT, WILL ASSUME CARE OF PT, SLEEPING, NO DISTRESS NOTICED AT THIS TIME, BED IS LOW, SRX2, CALL LIGHT IN REACH, WILL CONTINUE PLAN OF CARE
[2019-12-07 23:15] VITALS: BP 119/55
[2019-12-08 03:03] VITALS: BP 126/65
--- NOTE | 2019-12-08 03:28 | NUR ---
I have reviewed this patient and I concur with the Shift Assessment completed by the Licensed Practical Nurse today this shift.
[2019-12-08 06:10] LABS: BASOPHILS 0.4 % (0-2); EOSINOPHILS 2.1 % (0-7); HEMATOCRIT 32.5 % (42.0-54.0); HEMOGLOBIN 10.3 g/dL (13.5-17.5); IMMATURE GRANULOCYTES 0.4 % (0-5); LYMPHOCYTES 13.2 % (15-50); MCH 24.3 pg (26.0-34.0); MCHC 31.7 g/dL (31.0-37.0); MCV 76.8 fL (80.0-100.0); MEAN PLATELET VOLUME 10.5 fL (7.4-10.4); MONOCYTES 8.8 % (2-11); NEUTROPHILS 75.1 % (40-80); PLATELET COUNT 133 10x3/uL (130-400); RBC 4.23 10x6/uL (4.20-6.10); RDW 20.1 % (11.5-14.5); WBC 5.7 10x3/uL (4.8-10.8)
[2019-12-08 06:11] VITALS: BP 124/65
[2019-12-08 06:31] LABS: ALBUMIN 2.1 g/dL (3.4-5.0); ALKALINE PHOSPHATASE 82 U/L (30-120); BILIRUBIN - TOTAL 1.02 mg/dL (0.2-1.3); CALC OSMOLALITY 282 mosm/kg (275-300); CALCIUM 7.9 mg/dL (8.5-10.1); CARBON DIOXIDE 27.2 mmol/L (21.0-32.0); CHLORIDE - SERUM 98 mmol/L (98-107); CREATININE - SERUM 6.4 mg/dL (0.6-1.3); GLUCOSE 90 mg/dL (74-106); POTASSIUM - SERUM 3.6 mmol/L (3.5-5.1); PROTEIN - SERUM 5.1 g/dL (6.4-8.2); SODIUM 135 mmol/L (136-145); UREA NITROGEN 48 mg/dL (7-18); eGFR NON AFRICAN AMERICAN 9 mL/min (90-120)
[2019-12-08 06:32] LABS: ALT (SGPT) < 6 U/L (10-68)
[2019-12-08 07:00] VITALS: BP 113/60
[2019-12-08 09:12] LABS: ANA REFLEX - DIRECT Negative (Negative)
[2019-12-08 10:30] VITALS: BP 133/67
[2019-12-08 11:11] LABS: HEPATITIS C ANTIBODY 0.2 S/CO RAT (0.0-0.9)
--- NOTE | 2019-12-08 14:59 | NUR ---
DIALYSIS IN PATIENT ROOM.
[2019-12-08 15:00] VITALS: BP 138/85
--- NOTE | 2019-12-08 19:00 | NUR ---
REPORT RECEIVED, WILL CONTINUE POC. PATIENT IS AAOX4, LYING IN SEMI-FOWLERS POSITION. NO S/S OF DISTRESS OBSERVED, RR EVEN AND UNLABORED ON ROOM AIR. PIV TO LT FA, SL. PATIENT DENIES NEEDS AT THIS TIME. CL IN REACH, BED LOCKED AND LOWERED. CONTACT PRECAUTIONS MAINTAINED. WILL CTM.
[2019-12-08 20:00] VITALS: BP 130/57
[2019-12-09] VITALS: BP 122/54
[2019-12-09 04:00] VITALS: BP 126/62
[2019-12-09 06:19] LABS: ANION GAP 14.7 mmol/L (8-16); BILIRUBIN - TOTAL 0.99 mg/dL (0.2-1.3); CALCIUM 7.8 mg/dL (8.5-10.1); CARBON DIOXIDE 23.6 mmol/L (21.0-32.0); CREATININE - SERUM 4.8 mg/dL (0.6-1.3); POTASSIUM - SERUM 3.3 mmol/L (3.5-5.1); PROTEIN - SERUM 5.2 g/dL (6.4-8.2); VANCOMYCIN - RANDOM 25.3 ug/mL (10.0-20.0)
[2019-12-09 07:06] LABS: BASOPHILS 0.4 % (0-2); EOSINOPHILS 1.8 % (0-7); HEMATOCRIT 30.4 % (42.0-54.0); HEMOGLOBIN 9.6 g/dL (13.5-17.5); IMMATURE GRANULOCYTES 0.2 % (0-5); LYMPHOCYTES 12.2 % (15-50); MCH 24.2 pg (26.0-34.0); MCHC 31.6 g/dL (31.0-37.0); MCV 76.6 fL (80.0-100.0); MEAN PLATELET VOLUME 10.6 fL (7.4-10.4); MONOCYTES 8.1 % (2-11); NEUTROPHILS 77.3 % (40-80); PLATELET COUNT 121 10x3/uL (130-400); RBC 3.97 10x6/uL (4.20-6.10); RDW 20.2 % (11.5-14.5); WBC 4.9 10x3/uL (4.8-10.8)
--- NOTE | 2019-12-09 07:15 | NUR ---
RECEIVE SHIFT REPORT. RESTING IN BED WITH EYES CLOSED. NO SIGNS OF DISTRESS. WILL CONTINUE PLAN OF CARE AND SAFETY PRECAUTIONS.
[2019-12-09 07:29] VITALS: BP 134/63
[2019-12-09 12:11] LABS: MITOCHONDRIAL ANTIBODY <20.0 Units (0.0-20.0); SMOOTH MUSCLE ABS (ACTIN) 8 Units (0-19)
[2019-12-09 12:21] VITALS: BP 131/60
--- NOTE | 2019-12-09 13:14 | NUR ---
Nutrition Follow-up: Noted diet liberalized to regular high protein (K+ 3.3) and Megace d/c'd. Nursing reports pt eating well. Diet: Regular, High Protein, Ensure 1/day Wt: 171# (12/02) Last BM: 12/07 Labs noted: K+ 3.3, Ca 7.8, Alb 2.0 Meds noted: Florajen, Protonix, Tums, Carafate, Nephrovite -RD following.
--- NOTE | 2019-12-09 14:27 | MORECARE ---
CASE MANAGEMENT DISCHARGE SUMMARY PATIENT: OSMAN FERMIN UNIT: [id number] ADM DATE: 12/02/19 AGE: 74 : 44 SEX: M ROOM/BED: D.2112 AUTHOR: CHRISTIANO FLANAGAN PHYSICIAN: REFERRING PHYSICIAN: MARY KAY CEJA MD DATE OF SERVICE: 12/09/19 Discharge Plan Patient Name: OSMAN FERMIN Facility: [facility]:[place] : 1945 Planned Disposition: Inpatient Rehab Anticipated Discharge Date: Discharge Date: Expected LOS: Initial Reviewer: [email or web address] Initial Review Date: 12/04/2019 Generated: 12/09/19 3:26 pm Comments DCP- Discharge Planning Updated by [id number]: Mireya Jane on 12/09/19 1:[address] Patient Name: OSMAN FERMIN Encounter No: [id number] : 1945 Primary Insurance: MEDICARE A & B Anticipated DC Date: Planned Disposition: Inpatient Rehab External Planned Provider: : DCP follow-up note: Patient and family in agreement with discharge plan. No changes to plan. I called him and his and they are both in agreement to discharge. informed me about a wound on patient's toe that he goes to [facility] wound care clinic and would like wound care consulted. I consulted wound care nurse to see. Case management will follow and assist as needed. Mireya Buck DCP- Discharge Planning Updated by [id number]: Mireya Jane on 12/04/19 2:[address] I spoke with Francia in inpatient rehab and she states they will accept him when medically stable. DCP- Discharge Planning Updated by [id number]: Mireya Jane on 12/04/19 2:[address] Patient Name: OSMAN FERMIN Admission Status: ER Accout number: [id number] Admission Date: 12-02-2019 : 1945 Admission Diagnosis:END STAGE RENAL DISEASE Attending: ANIL Current LOS: 2 Anticipated DC Date: Planned Disposition: Inpatient Rehab Primary Insurance: MEDICARE A & B Discharge Planning Comments: CM met with patient and his spouse to complete initial dc planning. Patient's answers all my questions. Patient lives at home with his spouse. CM discussed availability of home health, rehab services, and medical equipment. Spouse states she would like him to go to Inpatient rehab at [facility] prior to discharge. She states when he leaves rehab, she would like to get a BSC and home health for him. JANEE for Inpatient rehab at [facility] and [facility] for medical equipment. I gave her a list of home health agencies that serve [place]. Rehab screen ordered. CM will continue to follow and assist with discharge planning/needs. Hoisting Engine Operator: Mireya Jane DCPIA - Discharge Planning Initial Assessment Updated by [id number]: Mireya Jane on 12/04/19 3:31 pm * Is the patient Alert and Oriented? Yes * How many steps to enter\exit or inside your home? Ramp/0 * PCP Dr. Hurtado[facility] * Pharmacy [facility] * Preadmission Environment Home with Family * ADLs Partial Dependent * Partial ADLs (Assistance needed) Ambulation Bathing Medication Management Toileting Transfers * Equipment Cane CPAP Rolling Walker Wheelchair * List name and contact numbers for known caregivers / representatives who currently or will assist patient after discharge: Bridgett Fermin - spouse - [phone] * Verbal permission to speak to the caregivers and representatives has been obtained from the patient. Yes * Community resources currently utilized None * Additional services required to return to the preadmission environment? Yes * Can the patient safely return to the preadmission environment? Yes * Has this patient been hospitalized within the prior 30 days at any hospital? No Coverage Notice Reviewer: [id number] Chuckie Jane Notice Issued Date-Time: 12/04/2019 15:36 Notice Type: Patient Choice Letter Notice Delivered To: Family Member Relationship to Patient: Spouse Services Host Name: Bridgett Fermin Delivery Method: HAND - Hand Delivered Yen Days: Prior Verbal Notification: Recipient Understood Notice: Yes Recipient Signature: Yes Med Rec Note Co-signed by Attending: Coverage Notice Comment: [facility] and [facility] inpatient rehab Reviewer: [id number] Chuckie Jane Notice Issued Date-Time: 12/09/2019 14:19 Notice Type: IM Discharge Notice Notice Delivered To: Patient Relationship to Patient: Services Host Name: Delivery Method: PHONE - Phone Yen Days: Prior Verbal Notification: Recipient Understood Notice: Yes Recipient Signature: Med Rec Note Co-signed by Attending: Coverage Notice Comment: IMM explained over the phone per Isolation protocol, given with discharge paperwork, copy placed in MR Last DP export: 12/04/19 2:41 p Patient Name: OSMAN FERMIN Page 52973 at 1427 All edits/amendments must be made on the electronic document DICTATION DATE: 12/09/191425 NET WASHER: DONAVAN 12/09/191425 RPT#: [id number] DC DATE: STATUS: ADM IN [facility] [address] [place] [address] END OF REPORT
[2019-12-09] MEDS ORDERED: Retacrit IV (14:41)
[2019-12-09] MEDS ORDERED: ELIQUIS2.5 MG PO (14:41)
[2019-12-09] MEDS ORDERED: CUBICIN500 MG IV (14:44)
--- NOTE | 2019-12-09 16:03 | NUR ---
Pt has been going to [facility] wound clinic for several weeks due to a chronic wound on right lateral foot/plantar area. Wound measures 0.1cm x 0.1cm x 0.6cm. There is no odor, drainage, edema or redness. Current treatment is packing with a strip of fibracol and covering with Silver Tul. Right plantar great toe has a healed wound that is covered for protection. states she has been changing the dressing every other day and will continue to do so as she has all the supplied furnished by the wound clinic. Wound care will follow up weekly and as needed (if she sees any changes).
--- NOTE | 2019-12-09 18:15 | NUR ---
D/C LEFT FOREARM IV, TIP INTACT. JOANA REHMAN PLACED NEW IV IN LEFT FOREARM. ANTIBIOTIC NOT STARTED YET. SENDING DOWN TO REHAB VIA WHEELCHAIR. WILL START THEN.
--- NOTE | 2019-12-10 07:23 | MORECARE ---
CASE MANAGEMENT DISCHARGE SUMMARY PATIENT: OSMAN FERMIN UNIT: [id number] ADM DATE: 12/02/19 AGE: 74 : 43 SEX: M ROOM/BED: D.2112 AUTHOR: CHRISTIANO FLANAGAN PHYSICIAN: REFERRING PHYSICIAN: MARY KAY CEJA MD DATE OF SERVICE: 12/10/19 Discharge Plan Patient Name: OSMAN FERMIN Facility: [facility]:[place] : 1945 Planned Disposition: Inpatient Rehab Anticipated Discharge Date: Discharge Date: 12/09/2019 Expected LOS: Initial Reviewer: [id number] Initial Review Date: 12/04/2019 Generated: 12/10/19 8:23 am Comments DCP- Discharge Planning Updated by [id number]: Mireya Jnae on 12/09/19 1:[address] Patient Name: OSMAN FERMIN Encounter No: [id number] : 1945 Primary Insurance: MEDICARE A & B Anticipated DC Date: Planned Disposition: Inpatient Rehab External Planned Provider: : DCP follow-up note: Patient and family in agreement with discharge plan. No changes to plan. I called him and his and they are both in agreement to discharge. informed me about a wound on patient's toe that he goes to [facility] wound care clinic and would like wound care consulted. I consulted wound care nurse to see. Case management will follow and assist as needed. Mireya Jane DCP- Discharge Planning Updated by [email or web address]: Mireya Jane on 12/04/19 2:[address] I spoke with Francia in inpatient rehab and she states they will accept him when medically stable. DCP- Discharge Planning Updated by [id number]: Mireya Jane on 12/04/19 2:[address] Patient Name: OSMAN FERMIN Admission Status: ER Accout number: [id number] Admission Date: 12-02-2019 : 1945 Admission Diagnosis:END STAGE RENAL DISEASE Attending: ANIL Current LOS: 2 Anticipated DC Date: Planned Disposition: Inpatient Rehab Primary Insurance: MEDICARE A & B Discharge Planning Comments: CM met with patient and his spouse to complete initial dc planning. Patient's answers all my questions. Patient lives at home with his spouse. CM discussed availability of home health, rehab services, and medical equipment. Spouse states she would like him to go to Inpatient rehab at [facility] prior to discharge. She states when he leaves rehab, she would like to get a BSC and home health for him. JANEE for Inpatient rehab at [facility] and [facility] for medical equipment. I gave her a list of home health agencies that serve [place]. Rehab screen ordered. CM will continue to follow and assist with discharge planning/needs. Atg Java Developer: Mireya Jane DCPIA - Discharge Planning Initial Assessment Updated by [email or web address]: Mireya Jane on 12/04/19 3:31 pm * Is the patient Alert and Oriented? Yes * How many steps to enter\exit or inside your home? Ramp/0 * PCP [facility] * Pharmacy [facility] * Preadmission Environment Home with Family * ADLs Partial Dependent * Partial ADLs (Assistance needed) Ambulation Bathing Medication Management Toileting Transfers * Equipment Cane CPAP Rolling Walker Wheelchair * List name and contact numbers for known caregivers / representatives who currently or will assist patient after discharge: Bridgett Fermin - spouse - [phone] * Verbal permission to speak to the caregivers and representatives has been obtained from the patient. Yes * Community resources currently utilized None * Additional services required to return to the preadmission environment? Yes * Can the patient safely return to the preadmission environment? Yes * Has this patient been hospitalized within the prior 30 days at any hospital? No Coverage Notice Reviewer: [id number] Chuckie Jane Notice Issued Date-Time: 12/04/2019 15:36 Notice Type: Patient Choice Letter Notice Delivered To: Family Member Relationship to Patient: Spouse Floor Service Worker Spring Name: Bridgett Fermin Delivery Method: HAND - Hand Delivered Yen Days: Prior Verbal Notification: Recipient Understood Notice: Yes Recipient Signature: Yes Med Rec Note Co-signed by Attending: Coverage Notice Comment: [facility] and [facility] inpatient rehab Reviewer: [id number] Chuckie Jane Notice Issued Date-Time: 12/09/2019 14:19 Notice Type: IM Discharge Notice Notice Delivered To: Patient Relationship to Patient: Floor Service Worker Spring Name: Delivery Method: PHONE - Phone Yen Days: Prior Verbal Notification: Recipient Understood Notice: Yes Recipient Signature: Med Rec Note Co-signed by Attending: Coverage Notice Comment: IMM explained over the phone per Isolation protocol, given with discharge paperwork, copy placed in MR Last DP export: 12/09/19 1:27 Patient Name: OSMAN FERMIN Page [id number] at 0723 All edits/amendments must be made on the electronic document DICTATION DATE: 12/10/19722 GIS DATABASE ADMINISTRATOR: DONAVAN 12/10/19722 RPT#: [id number] DC DATE:12/09/19 STATUS: DIS IN [facility] [address] [place] [address] END OF REPORT
== END 2019-12-09 18:30 | DRG 299 ==
LOC: D.ER 09:58 → D.M2 15:54 → D.EDHOLD 15:54 → D.MS 20:17 → D.M2 21:33
PROVIDERS: Family Medicine; Internal Medicine Gastroenterology; Radiology Diagnostic Radiology; ADMIT Internal Medicine Nephrology; ATTEND Internal Medicine Nephrology
PROC: 5A1D70Z Performance of Urinary Filtration, Intermittent, Less than 6 Hours Per Day (ICD-10-PCS; 2019-12-03)
PROC: 0W9G3ZZ Drainage of Peritoneal Cavity, Percutaneous Approach (ICD-10-PCS; principal; 2019-12-07 08:26)
DX: I82.B11 Acute embolism and thrombosis of right subclavian vein (principal); N18.6 End stage renal disease; R18.8 Other ascites; R78.81 Bacteremia; I12.0 Hypertensive chronic kidney disease with stage 5 chronic kidney disease or end stage renal disease; E11.22 Type 2 diabetes mellitus with diabetic chronic kidney disease; W19.XXXA Unspecified fall, initial encounter; R00.1 Bradycardia, unspecified; B95.62 Methicillin resistant Staphylococcus aureus infection as the cause of diseases classified elsewhere; E87.6 Hypokalemia

== ENCOUNTER 2019-12-09 18:08 | Inpatient (IN) | payer MEDICARE, OTHER ==
[~2019-12-09] VITALS: Ht 180.3 cm; Wt 77.0 kg
--- NOTE | ~2019-12-09 | RHP ---
PATIENT: OSMAN RIBEIRO MEDICAL RECORD: [id number] ACCOUNT: [id number] LOCATION:[facility]11[facility] : [birth year] ADMISSION DATE: 12/09/19 REHABILITATION HISTORY AND PHYSICAL EXAMINATION POST ADMISSION PHYSICIAN EXAMINATION ADMITTING DIAGNOSIS: Uremic myopathy. HISTORY OF PRESENT ILLNESS: The patient is a 74-year-old gentleman who has been having recent falls, he had been assisted up off the floor for increased weakness, fatigues and falls. He receives hemodialysis 3 times weekly. His states his right upper extremity began swelling a few days prior to his acute admit and he had a stent reopening to the upper extremity in the past. He did have a positive DVT done on a right venous Doppler in the right subclavian vein. He did have a dialysis fistula at that time that was patent. He had positive blood cultures with MRSA, in contact isolation, he had been receiving IV antibiotic therapy. He had an ultrasound, which showed moderate volume ascites. He underwent a paracentesis on 12/07/2019 with 7.3 liters of fluid taken out at this time. He has been followed by nephrology, family medicine, and gastroenterology throughout his stay. The patient has been receiving PT and progressing slowly during his acute hospital stay. He is currently on hemodialysis 3 times weekly. He is getting IV antibiotics. We are monitoring him for pain control, blood sugars and he has been seen by the nephrology throughout his stay. He has been monitored for his I's and O's. He has got some bowel incontinence. We are monitoring his labs. He is on anticoagulation therapy. We are doing medication adjustments as needed for this. He has got proximal muscle weakness, balance deficits, decreased activity, impaired mobility, decreased range of motion, gait disturbance, limited safety awareness. He has medical complexity and risk for falls. He needs cues for equipment. He has got low endurance. He fatigues easily, got inability to care for himself. These are all barriers to his discharge home. He lives at home with his , was independent with ADLs and mobility prior to this, using a rolling walker. He does have frequent falls at home. He is currently set up for mod assist for ADLs, mod assist for mobility. He and his would like from him to return home at his prior level of functioning. COMORBIDITIES: In this patient include weakness, end-stage renal disease, Staph aureus. He has got hepatorenal syndrome. PAST MEDICAL HISTORY: Significant for diabetes, thyroid problems, hypertension, pacemaker placement, coronary artery disease. He has got a history of heart vegetation and positive blood cultures, diabetes, thyroid problems, tobacco use, acid reflux, ulcers, end-stage renal disease. PAST SURGICAL HISTORY: Includes gallbladder surgery, appendectomy, colon resection, carotid endarterectomy, cardiac stents, fistula placement, pacemaker. ALLERGIES: LISINOPRIL, ASPIRIN, CLONIDINE, SHELLFISH DERIVED PRODUCTS, AND CARVEDILOL. CURRENT MEDICATIONS: He is on Retacrit 8000 units Saturday, Saturday and Saturday. He is on venlafaxine 75 mg daily, Flomax 0.4 mg daily. He is on furosemide 80 mg, he takes Saturday, Saturday, and Saturday. He is on folic acid 1 tablet daily, Protonix 40 mg daily, Kelsey 60 mg b.i.d., aspirin 81 mg daily, calcium carbonate 500 mg daily, Lopid 600 mg b.i.d., Synthroid 75 mcg daily, HISTORY AND PHYSICAL [id number] OSMAN RIBEIRO melatonin 6 mg at bedtime, Tums 1000 mg at bedtime, Carafate 1 g q.a.c. and at bedtime, Neurontin 300 mg b.i.d. He is currently getting daptomycin daily on Saturday, Saturday and Saturday. He is on Klonopin 2 mg at bedtime p.r.n., Eliquis 2.5 mg b.i.d., and tramadol 50 mg q.6 hours p.r.n. HABITS: No alcohol or tobacco use at this time. He does have a history of tobacco use in the past. FAMILY HISTORY: Noncontributory. SOCIAL HISTORY: The patient hopes to return back home and get back to his prior level of functioning. REVIEW OF SYSTEMS: GENERAL: Does complain of weakness and fatigue. HEENT: Denies cold, cough, or congestion. CARDIOVASCULAR: Denies any chest pain. PHYSICAL EXAMINATION: VITAL SIGNS: Stable, afebrile. GENERAL: A well-developed elderly gentleman, in no acute distress upon exam. HEENT: Normocephalic and atraumatic. Mucosa moist. NECK: Supple. No lymphadenopathy. LUNGS: Clear in upper palacios. No wheeze or rales. HEART: Regular rate and rhythm. No murmurs, rubs or gallops. ABDOMEN: Soft, benign, and nondistended. He does have some noted fluid wave there. EXTREMITIES: No clubbing, cyanosis or edema. Does have multiple bruising areas that are in different stages of healing. NEUROLOGIC: Does have proximal muscle weakness, especially in his girth muscles of his upper extremities and also in his thighs. LABORATORY DATA: White count is 5.8, H&H of 10.7 and 34.6, and platelet count is 145. His sodium is 144, potassium 4.3, BUN and creatinine of 37 and 4.8, and blood sugar is noted to be 86. 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 The patient has potential to make improvement. We instituted the following multidisciplinary therapies including, but not limited to physical, occupational, respiratory, speech, nutritional services, prosthetics and orthotics. Given his complex medical condition and risks for more complications, rehabilitation services cannot be provided at a low level of care such as skilled nurse facility. PLAN: 1. Admit to [facility] for intensive inpatient therapy to include the following disciplines; A. Physical therapy to improve gait, all transfer skills and bed mobility to a modified independent level. B. Occupational therapy to improve activities of daily living. C. Case management to help with discharge planning and placement options. D. Nutrition to assist with nutritional needs. E. Rehabilitation nursing to assist in monitoring the patient's underlying medical conditions and to assist with any type of bowel or bladder management. 2. The patient's current medication and medical care will be continued. HISTORY AND PHYSICAL [id number] OSMAN RIBEIRO 3. Placed on standard fall precautions. 4. The patient's estimated length of stay is approximately 7-10 days. 5. We will discuss the patient during care team staff meeting this week. Appreciate nephrology seeing this patient along with us. We will continue on his current regimen of hemodialysis and I will see again in the a.m. TRANSINT:[id number] Voice Confirmation ID: [id number] DOCUMENT ID: [id number] EUGENIA notes whether there has been none or any medical/functional change since admission: - No change since preadmission screen. EUGENIA attests patient continues to be appropriate for IRF: - Continues to be appropriate. SARWAT LOGAN MD CC: [id number] DICTATION DATE: 12/10/19853 BOILER CONTROL TECHNICIAN: 12/10/19953 ADM IN [facility] [address] [id number]
[~2019-12-09 18:08] MED LIST changes: +CUBICIN500 MG IV; +ELIQUIS2.5 MG PO; +Retacrit IV
--- NOTE | 2019-12-09 18:20 | NUR ---
RECIEVED FROM MED-2.ABX DAPTOMYCIN WAS WALKED DOWN WITH PT TO BE GIVEN.ACCOMPANIED BY INVESTMENT ADVISOR AND .ORIENTED TO ROOM AND CL.AND SURROUNDINGS.RT ARM BELOW AVF SITE SWOLLEN AND LEAKING FLUID,CLEAR.WRAPPED ARM IN PAD.
--- NOTE | 2019-12-09 20:20 | NUR ---
ADMIT TO PHYSICAL REHAB AND SERVICES OF DR LOGAN. AWAKE AND ALERT. RESPIRATIONS UNLABORED. RIGHT AV FISTULA IN PLACE WITH DRESSING OVER SITE. LOWER ARM DRESSING IN PLACE TO ABSORB WEEPING FLUID. SALINE LOCK IN LEFT AC IN PLACE WITH NO SIGNS OF INFILTRATION. SEE ADMISSION ASSESSMENT. CALL LIGHT IN REACH.
[2019-12-09 20:24] VITALS: BP 131/58; BMI 23.9
[2019-12-09 20:54] VITALS: BP 131/58
[2019-12-10] VITALS (7 sets, daily range): BP systolic 107–150; BP diastolic 46–67; Ht 180.3 cm; Wt 77.0 kg
--- NOTE | 2019-12-10 02:20 | NUR ---
RESTING QUIETLY WITH RESPIRATIONS UNLABORED. NO DISTRESS NOTED. CONTACT ISOLATION IN PLACE.
--- NOTE | 2019-12-10 06:04 | NUR ---
QUIET HOURS. NO ACUTE CHANGES IN CONDITION THIS SHIFT. RESTING IN BED WITH NO DISTRESS NOTED. REMAINS IN CONTACT ISOLATION. CALL LIGHT IN REACH.
[2019-12-10 07:05] LABS: BASOPHILS 0.5 % (0-2); EOSINOPHILS 1.6 % (0-7); HEMATOCRIT 34.6 % (42.0-54.0); HEMOGLOBIN 10.7 g/dL (13.5-17.5); IMMATURE GRANULOCYTES 0.5 % (0-5); LYMPHOCYTES 13.8 % (15-50); MCH 24.2 pg (26.0-34.0); MCHC 30.9 g/dL (31.0-37.0); MCV 78.3 fL (80.0-100.0); MEAN PLATELET VOLUME 9.9 fL (7.4-10.4); MONOCYTES 8.1 % (2-11); NEUTROPHILS 75.5 % (40-80); PLATELET COUNT 145 10x3/uL (130-400); RBC 4.42 10x6/uL (4.20-6.10); RDW 20.6 % (11.5-14.5); WBC 5.8 10x3/uL (4.8-10.8)
[2019-12-10 07:33] LABS: ANION GAP 20.4 mmol/L (8-16); CALCIUM 8.2 mg/dL (8.5-10.1); CARBON DIOXIDE 25.9 mmol/L (21.0-32.0); CREATININE - SERUM 4.8 mg/dL (0.6-1.3)
[2019-12-10 07:36] LABS: POTASSIUM - SERUM 4.3 mmol/L (3.5-5.1)
--- NOTE | 2019-12-10 18:09 | NUR ---
LAYING IN BED WATCHING TV. HAS BEEN UP TO VOID IN TOILET. SMALL AMOUNT OF URINE OUTPUT NOTED. SOME WEEPING FROM RUE NOTED TODAY. AREA HAS EDEMA BUT IT IS 2+ TO 3+. CALL LIGHT IN REACH, BED IN LOWEST POSITION, SIDE RAILS UP X2
--- NOTE | 2019-12-10 19:42 | NUR ---
AWAKE AND ALERT. RESTING IN BED WITH RESPIRAITONS UNLABORED. CONTACT ISOLATION IN PLACE. NO DISTRESS NOTED. CALL LIGHT IN REACH.
[2019-12-11 00:31] VITALS: BP 127/65
--- NOTE | 2019-12-11 01:57 | NUR ---
RESTING QUIETLY WITH NO DISTRESS NOTED. REMAINS IN CONTACT ISOLATION. NO DISTRESS NOTED.
[2019-12-11 06:30] VITALS: BP 135/68
--- NOTE | 2019-12-11 08:47 | NUR ---
Pt has a chronic wound on the lateral right foot (plantar aspect) below the 4th toe. Until his recent admission to hospital he was seen at the [facility] wound clinic for treatment. The wound measures 0.1cm x 0.1cm x 0.6cm. The periwound is slightly calloused. There is no odor, drainage, edema or redness noted. The right plantar great toe has a scabbed area from a healed wound. Patient's has been doing dressing changes every other day. She loosely packs lateral wound with a strip of fibracol and covers the area with silver tul (securing with a 2x2 and medipore). Great toe healed wound is protected with a piece of silver tul secured with a 2x2 and medipore. She states that she prefers to continue doing his dressing changes. Wound care will monitor.
[2019-12-11 12:00] VITALS: BP 133/60
--- NOTE | 2019-12-11 13:25 | NUR ---
SITTING UP IN WC IN ROOM. DENIES C/O OR NEEDS. CALL LIGHT IN REACH
[2019-12-11 16:10] LABS: BASOPHILS 0.6 % (0-2); EOSINOPHILS 1.4 % (0-7); HEMATOCRIT 34.7 % (42.0-54.0); HEMOGLOBIN 10.5 g/dL (13.5-17.5); IMMATURE GRANULOCYTES 0.3 % (0-5); LYMPHOCYTES 9.5 % (15-50); MCH 24.2 pg (26.0-34.0); MCHC 30.3 g/dL (31.0-37.0); MEAN PLATELET VOLUME 9.6 fL (7.4-10.4); MONOCYTES 6.7 % (2-11); NEUTROPHILS 81.5 % (40-80); PLATELET COUNT 157 10x3/uL (130-400); RBC 4.34 10x6/uL (4.20-6.10); RDW 20.8 % (11.5-14.5); WBC 6.6 10x3/uL (4.8-10.8)
[2019-12-11 16:33] LABS: ANION GAP 16.7 mmol/L (8-16); CALCIUM 8.1 mg/dL (8.5-10.1); CREATININE - SERUM 5.4 mg/dL (0.6-1.3); POTASSIUM - SERUM 4.7 mmol/L (3.5-5.1)
--- NOTE | 2019-12-11 19:05 | NUR ---
RECEIVED PT LYING IN BED WATCHING TV AWAITING DIALYSIS. ALERT AND ORIENTED X4. RIGHT UPPER ARM FISTULA WNL. RIGHT HEEL DRSG INTACT. LEFT WRIST IV PATENT NO INFILTRATION NOTED. DRESSING AND SWAB CAP INTACT. VS STABLE. SHIFT ASSESSMENT COMPLETE. CALL LIGHT AND WATER WITHIN REACH. FALL PRECAUTIONS IN PLACE. CPOC
[2019-12-11 19:14] VITALS: BP 131/60
--- NOTE | 2019-12-11 19:20 | NUR ---
DIALYSIS NURSE CASIE ON FLOOR, REQUESTS HOLD PT HS MEDS UNTIL AFTER DIALYSIS IS COMPLETED.
[2019-12-11 20:03] VITALS: BP 131/60
[2019-12-11 22:22] VITALS: BP 123/66
--- NOTE | 2019-12-11 22:30 | NUR ---
DIALYSIS COMPLETE. HS MEDS ADMINISTERED. LEFT FOREARM IV INFILTRATED. DC WITH CATH TIP INTACT. PRESSURE DRESSING APPLIED. WILL RESTART IV. NO ACUTE DISTRESS NOTED.
--- NOTE | 2019-12-11 23:00 | NUR ---
STARTED IV LEFT WRIST 24G X2 ATTEMPTS. FLUSHES WITHOUT DIFFICULTY. DRESSING AND SWAB CAPS APPLIED. PT TOLERATED WELL. IV ABX STARTED. CALL LIGHT WITHIN REACH. CPOC
[2019-12-12 00:10] VITALS: BP 90/42
--- NOTE | 2019-12-12 02:20 | NUR ---
PT LYING IN BED RIGHT SIDE EYES CLOSED RESTING. RR EVEN AND UNLABORED. CALL LIGHT WITHIN REACH.
[2019-12-12 07:20] VITALS: BP 123/53
--- NOTE | 2019-12-12 08:00 | NUR ---
SHIFT ASSMT COMPLETED.
[2019-12-12 13:45] VITALS: BP 152/70
--- NOTE | 2019-12-12 16:00 | NUR ---
IN CHAIR WATCHING TV.
[2019-12-12 18:00] VITALS: BP 119/55
--- NOTE | 2019-12-12 18:00 | NUR ---
VOMITIED ALL OF SUPPER AFTER TAKEN TO BATHROOM AND ASSISTED BACK TO BED.
--- NOTE | 2019-12-12 19:15 | NUR ---
RECEIVED PT LYING IN BED ON RIGHT SIDE C/O RIGHT ARM THROBBING PAIN. REQUESTS PAIN MEDICATION WILL ADMININSTER PER ORDER. RADIAL AND BRACHIAL PULSES INTACT. PT STATES PAIN STARTED AT THE END OF THERAPY SESSION AND CONTINUED TO GET WORSE. +3 WEEPING EDEMA NOTED. VS STABLE. SHIFT ASSESSMENT COMPLETE. CALL LIGHT AND WATER WITHIN REACH. FALL PRECAUTIONS IN PLACE. CPOC
--- NOTE | 2019-12-12 23:35 | NUR ---
PT LYING IN BED ON LEFT SIDE AWAKE. C/O THROBBING RIGHT ARM PAIN, POSITIONED ARM ON PILLOW WITH ICE PACK. PT VERBALIZED DECREASE PAIN. UNABLE TO ADMININSTER TRAMADOL UNTIL 0100. WILL CONTINUE TO MONITOR.
[2019-12-13 00:45] VITALS: BP 96/42
--- NOTE | 2019-12-13 01:00 | NUR ---
ASSISTED PT TO RESTROOM AND BACK TO BED WITH MOD ASSIST. MED SOFT FORMED BM. ASSISTED WITH CLEANING SELF PT ATTEMPTED TO USE NON DOMINANT HAND D/T RIGHT ARM HAVING LIMITED ROM R/T THROBBING PAIN. POSITIONED ON LEFT SIDE WITH RIGHT ARM ELEVATED ON PILLOW WITH ICE PACK. COVERED WITH SHEET NO BLANKETS TO HELP REDUCE FEVER. NO OTHER NEEDS VOICED. CALL LIGHT WITHIN REACH.
--- NOTE | 2019-12-13 02:30 | NUR ---
PT CALLED NEEDING HELP REPOSITIONING. FOUND PT HAVING BLOOD ON FOREHEAD AND ALL OVER BED. FOUND LEFT WRIST IV HAD BEEN PULLED OUT ACCIDENTLY BY PT. APPLIED PRESSURE DRESSING AND HELD PRESSURE UNTIL BLEEDING STOPPED. POSITIONED TO RIGHT SIDE. CALL LIGHT WITHIN REACH.
--- NOTE | 2019-12-13 03:30 | NUR ---
ASSISTED PT WITH SHOWER MOD ASSIST. PT WAS ABLE TO WASH ALL BODY PARTS EXCEPT BUTTOCKS AND PART OF BACK. ASSISTED WITH DRYING OFF AND DRESSING LOWER PART OF BODY. REDRESSED RIGHT GREAT TOE HEALED WOUND BED APPLIED SILVER TUL COVERED WITH FOLDED 2X2 AND SECURED WITH MEDIPORE TAPE FOR PROTECTION. RIGHT LATERAL FOOT WOUND PACKED LOOSELY WITH SMALL PIECE OF FIBRACOL, COVERED WITH SILVER TUL, SECURED WITH FOLDED 2X2 AND MEDIPORE TAPE. NON SLIP BLUE SOCKS ON. PT TOLERATED WELL. PT SITTING UP IN ROOM IN W/C. CALL LIGHT WITHIN REACH. FALL PRECAUTIONS IN PLACE. CPOC
[2019-12-13 06:19] VITALS: BP 113/47
--- NOTE | 2019-12-13 07:41 | NUR ---
SITTING UP IN WC WITH RIGHT ARM UP ON PILLOW;VERY SWOLLEN FROM ELBOW DOWN INTO FINGERTIPS WITH NAILBEDS DISCOLORED AND FINGERS COOL TO TOUCH.WILL NOTIFY RENAL MARINE EQUIPMENT PRESERVATION INSPECTOR.SHIFT ASSMT COMPLETED.
[2019-12-13 08:08] VITALS: BP 121/63
--- NOTE | 2019-12-13 08:25 | NUR ---
SPOKE WITH CHRISTIE WAKEFIELD AND OF [facility] AWAITING CALL BACK AND US OF RIGHT ARM.
[2019-12-13 08:45] LABS: BASOPHILS 0.2 % (0-2); EOSINOPHILS 0.2 % (0-7); HEMATOCRIT 35.4 % (42.0-54.0); HEMOGLOBIN 10.8 g/dL (13.5-17.5); IMMATURE GRANULOCYTES 0.3 % (0-5); MCH 24.7 pg (26.0-34.0); MCHC 30.5 g/dL (31.0-37.0); MCV 80.8 fL (80.0-100.0); MEAN PLATELET VOLUME 10.4 fL (7.4-10.4); MONOCYTES 3.8 % (2-11); NEUTROPHILS 89.5 % (40-80); PLATELET COUNT 186 10x3/uL (130-400); RBC 4.38 10x6/uL (4.20-6.10); RDW 21.5 % (11.5-14.5)
[2019-12-13 09:00] LABS: ANION GAP 18.2 mmol/L (8-16); CALCIUM 8.4 mg/dL (8.5-10.1); CARBON DIOXIDE 26.2 mmol/L (21.0-32.0); CREATININE - SERUM 5.1 mg/dL (0.6-1.3); POTASSIUM - SERUM 5.4 mmol/L (3.5-5.1)
[2019-12-13 09:06] LABS: ALBUMIN 2.7 g/dL (3.4-5.0); BILIRUBIN - TOTAL 1.29 mg/dL (0.2-1.3); PROTEIN - SERUM 6.7 g/dL (6.4-8.2)
--- NOTE | 2019-12-13 09:15 | NUR ---
ON FLOOR WITH US.MOVING PT TO ACUTE FLOOR.
--- NOTE | 2019-12-13 11:05 | NUR ---
TO ROOM 2205 PER WC.
== END 2019-12-13 11:02 | disposition short-term general hospital (02) | DRG 91 ==
LOC: D.REHAB 18:08
PROVIDERS: ADMIT Emergency Medicine; ATTEND Emergency Medicine
DX: G72.89 Other specified myopathies (principal); N18.6 End stage renal disease; I12.0 Hypertensive chronic kidney disease with stage 5 chronic kidney disease or end stage renal disease; R53.1 Weakness; Z91.81 History of falling; R53.83 Other fatigue; M62.81 Muscle weakness (generalized); R26.9 Unspecified abnormalities of gait and mobility; E11.22 Type 2 diabetes mellitus with diabetic chronic kidney disease; K21.9 Gastro-esophageal reflux disease without esophagitis; Z72.0 Tobacco use